=== PATIENT | female | born 1945 | race Caucasian/White ===

== ENCOUNTER 2019-08-03 00:06 | Emergency (ER) | payer OTHER ==
[2019-08-03] MEDS ORDERED: DIAZEPAM 5 MG TABLET ONE (00:56)
[2019-08-03] MEDS ORDERED: HYDROCODONE/APAP 5/325 MG TAB ONE (00:57)
--- NOTE | 2019-08-03 01:36 | ER ---
Nurse's Notes [facility] Name: Mechelle Sher Age: 73 yrs Sex: Female : 1945 Arrival Date: 08/03/2019 Time: 00:09 Bed 16 Private MD: Master Holloway Diagnosis: Pain in left knee;Internal derangement of knee Presentation: 08/02 00:42 Chief complaint: Patient states: i fell on a ditch a month ago and fell on my left mg2 knee. pain is worsening. Coronavirus screen: The patient has NOT traveled to a country currently being monitored by the [facility] within the last 14 days. Proceed with normal triage procedures. The patient has NOT had contact with any known and/or suspected case of coronavirus. Proceed with normal triage procedures. Ebola Screen: No symptoms or risks identified at this time. Initial Sepsis Screen: Does the patient meet any 2 criteria? No. Patient's initial sepsis screen is negative. Does the patient have a suspected source of infection? No. Patient's initial sepsis screen is negative. Risk Assessment: Do you want to hurt yourself or someone else? Patient reports no desire to harm self or others. 00:42 Method Of Arrival: Wheelchair mg2 00:42 Acuity: DARRIUS 4 mg2 Triage Assessment: 01:16 Injury Description: swelling and pain. mg2 Historical: - Allergies: 00:47 Iodine; mg2 - Home Meds: 00:47 escitalopram oxalate oral oral [Active]; mg2 - PMHx: 00:47 Anxiety; mg2 - PSHx: 00:47 back and right knee sx; mg2 - Immunization history:: Flu vaccine is up to date. - Social history:: Smoking status: Patient denies any tobacco usage or history of. Patient/guardian denies using alcohol, street drugs, IV drugs. Screenin:15 Abuse screen: Denies threats or abuse. Denies injuries from another. Nutritional mg2 screening: No deficits noted. Tuberculosis screening: No symptoms or risk factors identified. Fall Risk Fall in past 12 months (25 points). Assessment: 01:13 General: Appears in no apparent distress. comfortable, Behavior is calm, cooperative. mg2 Pain: Complains of pain in left leg and left knee Pain does not radiate. Pain currently is 8 out of 10 on a pain scale. Quality of pain is described as aching, Pain began gradually. Neuro: Level of Consciousness is awake, alert, obeys commands, Oriented to person, place, time, situation. Cardiovascular: Capillary refill < 3 seconds Patient's skin is warm and dry. Respiratory: Airway is patent Respiratory effort is even, unlabored, Respiratory pattern is regular, symmetrical. GI: No signs and/or symptoms were reported involving the gastrointestinal system. : No signs and/or symptoms were reported regarding the genitourinary system. EENT: No signs and/or symptoms were reported regarding the EENT system. Derm: Skin is intact, is healthy with good turgor, Skin is pink, warm \T\ dry. normal. Musculoskeletal: Circulation, motion, and sensation intact. Capillary refill < 3 seconds, Swelling present in left knee. 02:00 Reassessment: Patient appears in no apparent distress at this time. Patient is alert, mg2 oriented x 3, equal unlabored respirations, skin warm/dry/pink. Patient states feeling better. Vital Signs: 00:42 BP 142 / 69; Pulse 66; Resp 18; Temp 97.6; Pulse Ox 100% on R/A; Weight 68.04 kg; mg2 Height 5 ft. 4 in. (162.56 cm); 02:01 BP 115 / 67; Pulse 65; Resp 18; Temp 98; Pulse Ox 100% on R/A; mg2 00:42 Body Mass Index 25.75 (68.04 kg, 162.56 cm) mg2 ED Course: 00:09 Patient arrived in ED. es 00:09 Master Holloway MD is Private Physician. es 00:14 Roxane Gomez FNP-C [facility]. snw 00:14 Daniel Rodriguez MD is Attending Physician. snw 00:19 Zafar Patel, SAVANAH is Primary Nurse. mg2 00:44 Triage completed. mg2 00:44 Arm band placed on. mg2 01:06 Knee Left 3 View XRAY In Process Unspecified. EDMS 01:15 Patient has correct armband on for positive identification. mg2 01:15 No provider procedures requiring assistance completed. Patient did not have IV access mg2 during this emergency room visit. 01:29 Master Holloway MD is Referral Physician. snw 02:00 Knee immobilizer applied on left knee. mg2 Administered Medications: 01:00 Drug: Valium 5 mg Route: PO; mg2 02:00 Follow up: Response: No adverse reaction mg2 01:00 Drug: [place] 5 mg-325 mg 1 tabs Route: PO; mg2 01:59 Follow up: Response: No adverse reaction; Marked relief of symptoms; RASS: Alert and mg2 Calm (0) Outcome: 01:35 Discharge ordered by MD. villa 02:01 Discharged to home via wheelchair, with family. mg2 02:01 Condition: stable 02:01 Discharge instructions given to patient, family, Instructed on discharge instructions, follow up and referral plans. medication usage, Demonstrated understanding of instructions, follow-up care, medications, Prescriptions given X 1. 02:02 Patient left the ED. mg2 Signatures: Dispatcher [employer] EDRoxane Galaviz, CAR RETARDER OPERATOR-C CAR RETARDER OPERATOR-Csnw Merari Phelps Michele, RN RN mg2
--- NOTE | 2019-08-03 01:36 | EDPHYS ---
Physician Documentation [facility] Name: Mechelle Sher Age: 73 yrs Sex: Female : 1945 Arrival Date: 08/03/2019 Time: 00:09 Bed 16 Private MD: Master Holloway ED Physician Daniel Rodriguez HPI: 08/02 00:50 This 73 yrs old Female presents to ER via Wheelchair with complaints of Knee snw Injury. 00:50 The patient presents with decreased range of motion, pain, spasm, swelling. The snw complaints affect the left knee. Context: The problem was sustained at home, outdoors, resulted from the patient falling, into a ditch while mowing, the patient can fully bear weight, the patient is able to ambulate. Onset: The symptoms/episode began/occurred suddenly, months ago. Associated signs and symptoms: Pertinent positives: swelling, stiffness, pain . Severity of symptoms: At their worst the symptoms were moderate. The patient has not experienced similar symptoms in the past. appt on Fri with PCP, knee surgeon on 09/06/19. Historical: - Allergies: 00:47 Iodine; mg2 - Home Meds: 00:47 escitalopram oxalate oral oral [Active]; mg2 - PMHx: 00:47 Anxiety; mg2 - PSHx: 00:47 back and right knee sx; mg2 - Immunization history:: Flu vaccine is up to date. - Social history:: Smoking status: Patient denies any tobacco usage or history of. Patient/guardian denies using alcohol, street drugs, IV drugs. ROS: 00:49 Constitutional: Negative for fever, chills, and weight loss, Eyes: Negative for injury, snw pain, redness, and discharge, ENT: Negative for injury, pain, and discharge, Neck: Negative for injury, pain, and swelling, Cardiovascular: Negative for chest pain, palpitations, and edema, Respiratory: Negative for shortness of breath, cough, wheezing, and pleuritic chest pain, Abdomen/GI: Negative for abdominal pain, nausea, vomiting, diarrhea, and constipation, Back: Negative for injury and pain, : Negative for injury, bleeding, discharge, and swelling, Skin: Negative for injury, rash, and discoloration, Neuro: Negative for headache, weakness, numbness, tingling, and seizure, Psych: Negative for depression, anxiety, suicide ideation, homicidal ideation, and hallucinations. 00:49 MS/extremity: Positive for injury or acute deformity, decreased range of motion, pain, of the left knee. Exam: 00:44 Constitutional: This is a well developed, well nourished patient who is awake, alert, snw and in no acute distress. Head/Face: Normocephalic, atraumatic. Eyes: Pupils equal round and reactive to light, extra-ocular motions intact. Lids and lashes normal. Conjunctiva and sclera are non-icteric and not injected. Cornea within normal limits. Periorbital areas with no swelling, redness, or edema. ENT: Nares patent. No nasal discharge, no septal abnormalities noted. Tympanic membranes are normal and external auditory canals are clear. Oropharynx with no redness, swelling, or masses, exudates, or evidence of obstruction, uvula midline. Mucous membranes moist. Neck: Trachea midline, no thyromegaly or masses palpated, and no cervical lymphadenopathy. Supple, full range of motion without nuchal rigidity, or vertebral point tenderness. No Meningismus. Chest/axilla: Normal chest wall appearance and motion. Nontender with no deformity. No lesions are appreciated. Cardiovascular: Regular rate and rhythm with a normal S1 and S2. No gallops, murmurs, or rubs. Normal PMI, no JVD. No pulse deficits. Respiratory: Lungs have equal breath sounds bilaterally, clear to auscultation and percussion. No rales, rhonchi or wheezes noted. No increased work of breathing, no retractions or nasal flaring. Abdomen/GI: Soft, non-tender, with normal bowel sounds. No distension or tympany. No guarding or rebound. No evidence of tenderness throughout. Back: No spinal tenderness. No costovertebral tenderness. Full range of motion. Skin: Warm, dry with normal turgor. Normal color with no rashes, no lesions, and no evidence of cellulitis. Neuro: Awake and alert, GCS 15, oriented to person, place, time, and situation. Cranial nerves II-XII grossly intact. Motor strength 5/5 in all extremities. Sensory grossly intact. Cerebellar exam normal. Normal gait. Psych: Awake, alert, with orientation to person, place and time. Behavior, mood, and affect are within normal limits. 00:44 Musculoskeletal/extremity: Extremities: grossly normal except: noted in the left knee: Circulation is intact in all extremities. Sensation intact. Vital Signs: 00:42 BP 142 / 69; Pulse 66; Resp 18; Temp 97.6; Pulse Ox 100% on R/A; Weight 68.04 kg; mg2 Height 5 ft. 4 in. (162.56 cm); 02:01 BP 115 / 67; Pulse 65; Resp 18; Temp 98; Pulse Ox 100% on R/A; mg2 00:42 Body Mass Index 25.75 (68.04 kg, 162.56 cm) mg2 MDM: 00:29 Patient medically screened. snw 01:36 Data reviewed: vital signs, nurses notes. Data interpreted: Pulse oximetry: on room air snw is 100 %. Interpretation: normal. Counseling: I had a detailed discussion with the patient and/or guardian regarding: the historical points, exam findings, and any diagnostic results supporting the discharge/admit diagnosis, the presence of at least one elevated blood pressure reading (>120/80) during this emergency department visit, radiology results, the need for outpatient follow up, to return to the emergency department if symptoms worsen or persist or if there are any questions or concerns that arise at home. Special discussion: I have referred the patient to see his PCP for further evaluation of high blood pressure. Based on the history and exam findings, there is no indication for further emergent testing or inpatient evaluation. I discussed with the patient/guardian the need to see the orthopedic surgeon for further evaluation of the symptoms. I discussed with the patient/guardian the need to see the primary care provider for further evaluation of the symptoms. 08/02 00:43 Order name: Knee Left 3 View XRAY snw 08/02 00:43 Order name: Knee Immobilizer; Complete Time: 01:59 snw Administered Medications: 01:00 Drug: Valium 5 mg Route: PO; mg2 02:00 Follow up: Response: No adverse reaction mg2 01:00 Drug: [place] 5 mg-325 mg 1 tabs Route: PO; mg2 01:59 Follow up: Response: No adverse reaction; Marked relief of symptoms; RASS: Alert and mg2 Calm (0) Disposition: 07:04 Co-signature as Attending Physician, Daniel Rodriguez MD I agree with the assessment and tw4 plan of care. Disposition: 08/03/19 01:35 Discharged to Home. Impression: Pain in left knee, Internal derangement of knee. - Condition is Stable. - Discharge Instructions: Knee Immobilizer, Knee Sprain, Musculoskeletal Pain, RICE for Routine Care of Injuries, Knee Pain, Heat Therapy. - Prescriptions for orphenadrine citrate 100 mg Oral Tablet Sustained Release - take 1 tablet by ORAL route 2 times per day As needed; 20 tablet. - Medication Reconciliation Form, Thank You Letter, Antibiotic Education, Prescription Opioid Use form. - Follow up: Matser Holloway MD; When: 2 - 3 days; Reason: Recheck today's complaints, Continuance of care, Re-evaluation by your physician. Follow up: Emergency Department; When: As needed; Reason: Worsening of condition. Signatures: Dispatcher [employer] EDMS Roxane Gomez, RESIDENT CAREGIVER-C RESIDENT CAREGIVER-Csnw Daniel Rodriguez MD MD tw4 Zafar Patel RN RN mg2 Corrections: (The following items were deleted from the chart) 02:02 01:35 08/03/2019 01:35 Discharged to Home. Impression: Pain in left knee; Internal mg2 derangement of knee. Condition is Stable. Forms are Medication Reconciliation Form, Thank You Letter, Antibiotic Education, Prescription Opioid Use. Follow up: Master Holloway; When: 2 - 3 days; Reason: Recheck today's complaints, Continuance of care, Re-evaluation by your physician. Follow up: Emergency Department; When: As needed; Reason: Worsening of condition. snw
[2019-08-03 02:33] VITALS: O2SAT 100
[2019-08-03 02:35] VITALS: BP 115/67; TEMP 98
--- NOTE | 2019-08-03 07:48 | RAD REPORT ---
EXAM DESCRIPTION: RAD - Knee Left 3 View - 08/03/2019 1:07 am CLINICAL HISTORY: Left knee pain FINDINGS: No fracture or dislocation is seen. Bones are osteoporotic. Chondrocalcinosis appears be present Moderate osteoarthritis involves the medial compartment consisting of joint space narrowing and osteo phytes. Soft tissue swelling is present. The patient has clinical symptoms to suggest an occult fracture, ligamentous or meniscal injury then MRI would be recommended
== END 2019-08-03 02:02 | disposition home or self-care (01) ==
LOC: ER 00:06
DX: M23.92 Unspecified internal derangement of left knee (principal); M25.562 Pain in left knee; X58.XXXA Exposure to other specified factors, initial encounter; Y93.9 Activity, unspecified; Y92.9 Unspecified place or not applicable; Z91.09 Other allergy status, other than to drugs and biological substances
CPT/HCPCS: 99284

== ENCOUNTER 2020-05-28 12:07 | Observation (INO) | payer OTHER ==
[2020-05-28] MEDS ORDERED: NA CHLORIDE 0.9% 1,000 ML ONE (12:56)
[2020-05-28] MEDS ORDERED: ASPIRIN 81 MG CHEWABLE TABLET ONE (12:56)
[2020-05-28] MEDS ORDERED: FAMOTIDINE 20 MG/2 ML VIAL IV ONE (12:56)
[2020-05-28] MEDS ORDERED: METOPROLOL TAR 50 MG TAB ONE ×2 (12:56→13:20)
[2020-05-28] MEDS ORDERED: ENOXAPARIN 80 MG/0.8 ML SQ ONE (12:56)
[2020-05-28] MEDS ORDERED: MORPHINE 2 MG/ML SYR ONE (12:59)
[2020-05-28] MEDS ORDERED: ONDANSETRON 4 MG/2 ML VIAL ONE (12:59)
[2020-05-28 13:00] LABS: Absolute Lymphocytes (CBC) 2.2 K/uL (0.7-4.9); Basophils % 1.1 % (0-1.3); Hematocrit 41.2 % (36.0-45.0); Lymphocytes % 25.5 % (15.3-44.8); Protime INR 0.93; RBC Red Blood Cell Count 4.23 M/uL (3.86-4.86)
--- NOTE | 2020-05-28 13:14 | RAD REPORT ---
EXAM DESCRIPTION: RAD - Chest Single View - 05/28/2020 12:47 pm CLINICAL HISTORY: CHEST PAIN Chest pain. COMPARISON: CHEST SINGLE VIEW dated 12/10/2010 FINDINGS: Portable technique limits examination quality. The lungs are grossly clear. The heart is normal in size. No displaced fractures. IMPRESSION: No acute intrathoracic process suspected.
[2020-05-28 13:26] LABS: ALT/SGPT 73 U/L (12-78); AST/SGOT 101 U/L (15-37); Albumin 3.8 g/dL (3.4-5.0); Alkaline Phosphatase 112 U/L (45-117); BUN Blood Urea Nitrogen 10 mg/dL (7-18); Bicarbonate 26 mmol/L (21-32); Bilirubin Direct 0.2 mg/dL (0-0.2); Bilirubin Total 0.8 mg/dL (0.2-1.0); Glucose Level 138 mg/dL (74-106); Lipase 219 U/L (73-393); NT PRO-BNP 192 pg/mL (<450); Potassium 4.2 mmol/L (3.5-5.1); Protein, Total 7.6 g/dL (6.4-8.2); Sodium Level 136 mmol/L (136-145); Troponin (Emerg Dept Use Only) < 0.02 ng/mL (0.0-0.045)
--- NOTE | 2020-05-28 13:37 | ER ---
Nurse's Notes [facility] Name: Mechelle Sher Age: 74 yrs Sex: Female : 1945 Arrival Date: 05/28/2020 Time: 12:08 Bed 3 Private MD: Diagnosis: Chest pain, unspecified;Essential (primary) hypertension Presentation: 05/28 12:15 Chief complaint: Patient states: Chest pain and sweating that began this morning at ss 0730. Also c/o chills. Coronavirus screen: chills, Client presents with at least one sign or symptom that may indicate coronavirus-19. Standard/surgical mask placed on the client. Ebola Screen: Patient denies exposure to infectious person. Patient denies travel to an Ebola-affected area in the 21 days before illness onset. Initial Sepsis Screen: Does the patient meet any 2 criteria? No. Patient's initial sepsis screen is negative. Does the patient have a suspected source of infection? No. Patient's initial sepsis screen is negative. Risk Assessment: Do you want to hurt yourself or someone else? Patient reports no desire to harm self or others. Onset of symptoms was May 28, 2020. 12:15 Method Of Arrival: Wheelchair ss 12:15 Acuity: DARRIUS 3 ss Historical: - Allergies: 12:16 Iodine; ss 12:17 Sulfa (Sulfonamide Antibiotics); ss - PMHx: 12:16 Anxiety; ss 12:17 Hypertension; ss - PSHx: 12:16 back and right knee sx; ss - Immunization history:: Adult Immunizations up to date. - Social history:: Smoking status: Patient denies any tobacco usage or history of. Screenin:30 Abuse screen: Denies threats or abuse. Denies injuries from another. Nutritional sv screening: No deficits noted. Tuberculosis screening: No symptoms or risk factors identified. Fall Risk None identified. Assessment: 12:30 General: Appears in no apparent distress. comfortable, well groomed, well developed, sv Behavior is calm, cooperative, appropriate for age. General: Reports chills for 0-12 hours. Pain: Complains of pain in chest Pain does not radiate. Pain currently is 6 out of 10 on a pain scale. Pain began this morning Is continuous. Neuro: Level of Consciousness is awake, alert, obeys commands, Oriented to person, place, time, situation, Moves all extremities. Full function Gait is steady. Cardiovascular: Patient's skin is warm and dry. Pulses are palpable in right brachial artery and left brachial artery. Respiratory: Respiratory effort is even, unlabored, Respiratory pattern is regular, symmetrical. Derm: Skin is pink, warm \T\ dry. 13:20 Reassessment: Patient appears in no apparent distress at this time. Patient and/or sv family updated on plan of care and expected duration. Pain level reassessed. Patient is alert, oriented x 3, equal unlabored respirations, skin warm/dry/pink. 15:54 Reassessment: Patient appears in no apparent distress at this time. Patient and/or ph family updated on plan of care and expected duration. Pain level reassessed. Patient is alert, oriented x 3, equal unlabored respirations, skin warm/dry/pink. 16:09 Reassessment: Dr Bryan at the bedside. Vital Signs: 12:16 BP 135 / 94; Pulse 110; Resp 18; Temp 98.2(O); Pulse Ox 98% on R/A; Weight 68.04 kg; Height 5 ft. 3 in. (160.02 cm); Pain 6/10; 13:00 BP 176 / 87; Pulse 91; Resp 18; Pulse Ox 95% on R/A; ph 14:00 BP 175 / 85; Pulse 64; Resp 18; Pulse Ox 93% on R/A; ph 15:00 BP 165 / 76; Pulse 61; Resp 18; Pulse Ox 95% on R/A; ph 15:57 BP 172 / 92; Pulse 65; Resp 16; Pulse Ox 95% on R/A; ph 17:00 BP 145 / 67; Pulse 65; Resp 16; Pulse Ox 95% ; sv 18:00 BP 139 / 64; Pulse 60; Resp 17; Pulse Ox 94% ; sv 19:00 BP 131 / 70; Pulse 63; Resp 16; Pulse Ox 99% ; rr5 19:48 BP 136 / 65; Pulse 69; Resp 19; Temp 98.2; Pulse Ox 99% on R/A; rr5 12:16 Body Mass Index 26.57 (68.04 kg, 160.02 cm) ED Course: 12:08 Patient arrived in ED. rg4 12:16 Triage completed. 12:16 Arm band placed on right wrist. ss 12:18 Bebeto Carmona MD is Attending Physician. blanca 12:20 Leah May RN is Primary Nurse. sv 12:30 Patient has correct armband on for positive identification. Placed in gown. Bed in low sv position. Call light in reach. Side rails up X2. Adult w/ patient. monitoring and evaluation advisor on. Pulse ox on. NIBP on. Door closed. Warm blanket given. Head of bed elevated. 12:30 Inserted saline lock: 20 gauge in left antecubital area, using aseptic technique. Blood sv collected. Flushed left antecubital with 5 ml normal saline. 12:47 XRAY Chest (1 view) In Process Unspecified. EDMS 13:33 Terry Bryan MD is Hospitalizing Provider. [facility] 16:00 No provider procedures requiring assistance completed. Patient admitted, IV remains in sv place. intact. Patient maintains SpO2 saturation greater than 95% on room air. 19:46 Primary Nurse role handed off by Leah May RN mw2 19:48 Daryl Wylie RN is Primary Nurse. rr5 Administered Medications: 13:18 Drug: NS 0.9% 1000 ml Route: IV; Rate: 125 ml/hr; Site: left antecubital; ll1 13:18 Drug: Pepcid 20 mg Route: IVP; Site: left antecubital; ll1 15:32 Follow up: Response: No adverse reaction sv 13:18 Drug: Lopressor (metoprolol TARTRATE) 50 mg Route: PO; ll1 15:33 Follow up: Response: No adverse reaction sv 13:18 Drug: Zofran (Ondansetron) 4 mg Route: IVP; Site: left antecubital; ll1 15:32 Follow up: Response: No adverse reaction sv 13:19 Drug: Aspirin 162 mg Route: PO; ll1 15:33 Follow up: Response: No adverse reaction sv 13:19 Drug: Lovenox 1 mg/kg Route: Sub-Q; Site: left lower abdomen; ll1 15:32 Follow up: Response: No adverse reaction sv 13:19 Drug: morphine 2 mg Route: IVP; Site: left antecubital; ll1 15:32 Follow up: Response: No adverse reaction; RASS: Alert and Calm (0) sv 16:24 Drug: hydrALAZINE 10 mg Route: IV; Rate: bolus; Site: left antecubital; sv 17:47 Drug: Tylenol 650 mg Route: PO; sv 19:00 Follow up: Response: No adverse reaction rr5 Outcome: 13:36 Decision to Hospitalize by Provider. blanca 16:00 Admitted to ER Hold. Please see [facility] for further documentation. sv 16:00 Condition: stable 16:00 Instructed on the need for admit. 20:45 Admitted to Med/surg accompanied by tech, via wheelchair, room 224, with chart, Report rr5 called to SAVANAH Salmeron 20:45 Condition: stable 20:45 Instructed on the need for admit, Demonstrated understanding of instructions. 20:48 Patient left the ED. rr5 Signatures: Dispatcher [employer] Leah Love, RN Bebeto Hood MD MD cha Smirch, Shelby, RN RN ss Nadia Perry RN RN ph Garcia, Rubi 4 Willow Mccarty 2 Daryl Wylie RN RN rr5 Alexander Pandey RN RN ll1
--- NOTE | 2020-05-28 13:37 | EDPHYS ---
Physician Documentation [facility] Name: eMchelle Sher Age: 74 yrs Sex: Female : 1945 Arrival Date: 05/28/2020 Time: 12:08 Bed 3 Private MD: ED Physician Bebeto Carmona HPI: 05/28 12:31 This 74 yrs old Female presents to ER via Wheelchair with complaints of Chest blanca Pain, High Blood Pressure. 12:31 The patient or guardian reports chest pain that is located primarily in the substernal blanca area, anterior chest wall. Onset: this morning. The pain does not radiate. Associated signs and symptoms: Pertinent positives: lightheadedness, shortness of breath. The chest pain is described as a heaviness, causing indigestion, a pressure. Modifying factors: The symptoms are alleviated by nothing. the symptoms are aggravated by nothing. Severity of pain: At its worst the pain was mild moderate in the emergency department the pain has resolved. The patient has experienced a previous episode, last week. Historical: - Allergies: 12:16 Iodine; ss 12:17 Sulfa (Sulfonamide Antibiotics); ss - PMHx: 12:16 Anxiety; ss 12:17 Hypertension; ss - PSHx: 12:16 back and right knee sx; ss - Immunization history:: Adult Immunizations up to date. - Social history:: Smoking status: Patient denies any tobacco usage or history of. ROS: 12:31 Constitutional: Negative for fever, chills, and weight loss, Eyes: Negative for injury, blanca pain, redness, and discharge, ENT: Negative for injury, pain, and discharge, Neck: Negative for injury, pain, and swelling, Respiratory: Negative for shortness of breath, cough, wheezing, and pleuritic chest pain, Abdomen/GI: Negative for abdominal pain, nausea, vomiting, diarrhea, and constipation, Back: Negative for injury and pain, : Negative for injury, bleeding, discharge, and swelling, MS/Extremity: Negative for injury and deformity, Skin: Negative for injury, rash, and discoloration, Neuro: Negative for headache, weakness, numbness, tingling, and seizure, Psych: Negative for depression, anxiety, suicide ideation, homicidal ideation, and hallucinations, Allergy/Immunology: Negative for hives, rash, and allergies, Endocrine: Negative for neck swelling, polydipsia, polyuria, polyphagia, and marked weight changes, Hematologic/Lymphatic: Negative for swollen nodes, abnormal bleeding, and unusual bruising. 12:31 Cardiovascular: Positive for chest pain, palpitations. Exam: 12:31 Constitutional: This is a well developed, well nourished patient who is awake, alert, blanca and in no acute distress. Head/Face: Normocephalic, atraumatic. Eyes: Pupils equal round and reactive to light, extra-ocular motions intact. Lids and lashes normal. Conjunctiva and sclera are non-icteric and not injected. Cornea within normal limits. Periorbital areas with no swelling, redness, or edema. ENT: Nares patent. No nasal discharge, no septal abnormalities noted. Tympanic membranes are normal and external auditory canals are clear. Oropharynx with no redness, swelling, or masses, exudates, or evidence of obstruction, uvula midline. Mucous membranes moist. Neck: Trachea midline, no thyromegaly or masses palpated, and no cervical lymphadenopathy. Supple, full range of motion without nuchal rigidity, or vertebral point tenderness. No Meningismus. Chest/axilla: Normal chest wall appearance and motion. Nontender with no deformity. No lesions are appreciated. Cardiovascular: Regular rate and rhythm with a normal S1 and S2. No gallops, murmurs, or rubs. Normal PMI, no JVD. No pulse deficits. Respiratory: Lungs have equal breath sounds bilaterally, clear to auscultation and percussion. No rales, rhonchi or wheezes noted. No increased work of breathing, no retractions or nasal flaring. Abdomen/GI: Soft, non-tender, with normal bowel sounds. No distension or tympany. No guarding or rebound. No evidence of tenderness throughout. Back: No spinal tenderness. No costovertebral tenderness. Full range of motion. Female : Normal external genitalia. Skin: Warm, dry with normal turgor. Normal color with no rashes, no lesions, and no evidence of cellulitis. MS/ Extremity: Pulses equal, no cyanosis. Neurovascular intact. Full, normal range of motion. Neuro: Awake and alert, GCS 15, oriented to person, place, time, and situation. Cranial nerves II-XII grossly intact. Motor strength 5/5 in all extremities. Sensory grossly intact. Cerebellar exam normal. Normal gait. Psych: Awake, alert, with orientation to person, place and time. Behavior, mood, and affect are within normal limits. 12:36 ECG was reviewed by the Attending Physician. [facility] Vital Signs: 12:16 BP 135 / 94; Pulse 110; Resp 18; Temp 98.2(O); Pulse Ox 98% on R/A; Weight 68.04 kg; ss Height 5 ft. 3 in. (160.02 cm); Pain 6/10; 13:00 BP 176 / 87; Pulse 91; Resp 18; Pulse Ox 95% on R/A; ph 14:00 BP 175 / 85; Pulse 64; Resp 18; Pulse Ox 93% on R/A; ph 15:00 BP 165 / 76; Pulse 61; Resp 18; Pulse Ox 95% on R/A; ph 15:57 BP 172 / 92; Pulse 65; Resp 16; Pulse Ox 95% on R/A; ph 17:00 BP 145 / 67; Pulse 65; Resp 16; Pulse Ox 95% ; sv 18:00 BP 139 / 64; Pulse 60; Resp 17; Pulse Ox 94% ; sv 19:00 BP 131 / 70; Pulse 63; Resp 16; Pulse Ox 99% ; rr5 19:48 BP 136 / 65; Pulse 69; Resp 19; Temp 98.2; Pulse Ox 99% on R/A; rr5 12:16 Body Mass Index 26.57 (68.04 kg, 160.02 cm) ss MDM: 12:18 Patient medically screened. [facility] 12:33 Differential diagnosis: abnormal EKG, acute myocardial infarction, acute pericarditis, blanca chest wall pain, cholecystitis, Cholelithiasis pancreatitis, pneumonia, pulmonary embolus, stable angina, thoracic aortic disection, unstable angina. HEART Score: History: Slightly Suspicious (0), ECG: Normal (0), Age: > or = 65 years (2), Risk Factors: > or = 3 Risk factors for atherosclerotic disease (2), [Hypercholesterolemia] [Hypertension] [+ Family HX] Troponin: < or = 1 x Normal Limit (0). The patient was given aspirin in the Emergency Department. The patient's deep vein thrombosis risk score was calculated as follows: Total Score: 0. This patient was found to be at low risk for a deep vein thrombosis by using the Well's assessment criteria. The patient's pulmonary embolism risk score was calculated as follows: Total Score: 0-2 points. This patient was found to be at low risk for a pulmonary embolism by using the Well's assessment criteria. BRYNN Risk Score: 1 - patient's age is greater or equal to 65 years, TOTAL SCORE = 1. Data reviewed: vital signs, nurses notes, lab test result(s), EKG, radiologic studies, plain films. Data interpreted: residential monitor: rate is 110 beats/min, rhythm is regular, Pulse oximetry: on room air is 98 %. Test interpretation: by ED physician or midlevel provider: ECG, plain radiologic studies. Counseling: I had a detailed discussion with the patient and/or guardian regarding: the historical points, exam findings, and any diagnostic results supporting the discharge/admit diagnosis, lab results, radiology results. 05/28 12:19 Order name: Basic Metabolic Panel; Complete Time: 13:32 [facility] 05/28 12:19 Order name: CBC with Diff; Complete Time: 13:32 [facility] 05/28 12:19 Order name: LFT's; Complete Time: 13:32 [facility] 05/28 12:19 Order name: Magnesium; Complete Time: 13:32 [facility] 05/28 12:19 Order name: NT PRO-BNP; Complete Time: 13:32 blanca 05/28 12:19 Order name: PT-INR; Complete Time: 13:32 [facility] 05/28 12:19 Order name: Troponin (emerg Dept Use Only); Complete Time: 13:32 [facility] 05/28 12:19 Order name: Lipase; Complete Time: 13:32 [facility] 05/28 12:36 Order name: COVID-19 [facility] 05/28 14:51 Order name: Basic Metabolic Panel EDMS 05/28 14:51 Order name: Basic Metabolic Panel EDMS 05/28 14:51 Order name: CBC with Automated Diff EDMS 05/28 14:51 Order name: CBC with Automated Diff EDMS 05/28 14:51 Order name: Troponin I EDMS 05/28 12:19 Order name: XRAY Chest (1 view); Complete Time: 13:32 blanca 05/28 14:51 Order name: Echo with Doppler EDDC 05/28 14:51 Order name: Troponin I EDMS 05/28 14:51 Order name: Troponin I EDMS 05/28 17:08 Order name: SARS-COV-2 RT PCR [facility] 05/28 17:24 Order name: Urine Dipstick--Ancillary (enter results) 05/28 17:56 Order name: Urine Dipstick-Ancillary [facility] 05/28 12:19 Order name: EKG; Complete Time: 12:21 [facility] 05/28 12:19 Order name: Cardiac monitoring; Complete Time: 15:32 [facility] 05/28 12:19 Order name: EKG - Nurse/Tech; Complete Time: 15:32 [facility] 05/28 12:19 Order name: IV Saline Lock; Complete Time: 13:19 [facility] 05/28 12:19 Order name: Labs collected and sent; Complete Time: 13:19 [facility] 05/28 12:19 Order name: O2 Per Protocol; Complete Time: 13:20 [facility] 05/28 12:19 Order name: O2 Sat Monitoring; Complete Time: 15:32 [facility] 05/28 12:19 Order name: Urine Dipstick-Ancillary (obtain specimen); Complete Time: 17:18 [facility] 05/28 14:51 Order name: CONS Physician Consult [facility] 05/28 14:51 Order name: Heart Healthy [facility] 05/28 14:51 Order name: EKG Electrocardiogram [facility] 05/28 14:51 Order name: EKG Electrocardiogram [facility] EC:36 Rate is 99 beats/min. Rhythm is regular. QRS Wolsey is Normal. [place] interval is normal. QRS blanca interval is normal. QT interval is normal. No Q waves. T waves are Normal. No ST changes noted. Clinical impression: NSR w/ Non-specific ST/T Changes and No evidence of ischemia. Interpreted by me. Reviewed by me. Administered Medications: 13:18 Drug: NS 0.9% 1000 ml Route: IV; Rate: 125 ml/hr; Site: left antecubital; ll1 13:18 Drug: Pepcid 20 mg Route: IVP; Site: left antecubital; ll1 15:32 Follow up: Response: No adverse reaction sv 13:18 Drug: Lopressor (metoprolol TARTRATE) 50 mg Route: PO; ll1 15:33 Follow up: Response: No adverse reaction sv 13:18 Drug: Zofran (Ondansetron) 4 mg Route: IVP; Site: left antecubital; ll1 15:32 Follow up: Response: No adverse reaction sv 13:19 Drug: Aspirin 162 mg Route: PO; ll1 15:33 Follow up: Response: No adverse reaction sv 13:19 Drug: Lovenox 1 mg/kg Route: Sub-Q; Site: left lower abdomen; ll1 15:32 Follow up: Response: No adverse reaction sv 13:19 Drug: morphine 2 mg Route: IVP; Site: left antecubital; ll1 15:32 Follow up: Response: No adverse reaction; RASS: Alert and Calm (0) sv 16:24 Drug: hydrALAZINE 10 mg Route: IV; Rate: bolus; Site: left antecubital; sv 17:47 Drug: Tylenol 650 mg Route: PO; sv 19:00 Follow up: Response: No adverse reaction rr5 Disposition: 05/28/20 13:36 Hospitalization ordered by Terry Bryan for Observation. Preliminary diagnosis are Chest pain, unspecified, Essential (primary) hypertension. - Bed requested for Telemetry/MedSurg (observation). - Status is Observation. rr5 - Condition is Fair. - Problem is new. - Symptoms have improved. Signatures: Dispatcher [employer] EDLeah Dawkins RN RN sv Woody, Diana, RN RN dw Anderson, Corey, MD MD cha Smirch, Shelby, RN RN ss Daryl Wylie RN RN rr5 Alexander Pandey RN RN ll1 Corrections: (The following items were deleted from the chart) 20:13 13:36 Hospitalization Ordered by Terry Bryan MD for Observation. Preliminary dw diagnosis is Chest pain, unspecified; Essential (primary) hypertension. Bed requested for Telemetry/MedSurg (observation). Status is Observation. Condition is Fair. Problem is new. Symptoms have improved. blanca 20:48 20:13 05/28/2020 13:36 Hospitalization Ordered by Terry Bryan MD for Observation. rr5 Preliminary diagnosis is Chest pain, unspecified; Essential (primary) hypertension. Bed requested for Telemetry/MedSurg (observation). Status is Observation. Condition is Fair. Problem is new. Symptoms have improved. dw
[2020-05-28] MEDS ORDERED: MORPHINE 4 MG/ML SYR IV PRN (14:48)
[2020-05-28] MEDS ORDERED: ALPRAZOLAM 0.25 MG TABLET PO PRN (14:48)
[2020-05-28] MEDS ORDERED: ENOXAPARIN 40 MG/0.4 ML SQ SCH (15:00)
[2020-05-28] MEDS ORDERED: HYDRALAZINE HCL 20 MG/ML VIAL ONE (16:27)
[2020-05-28 17:56] LABS: Urine Blood NEGATIVE (NEG); Urine Glucose NEGATIVE (NEG); Urine Protein NEGATIVE (NEG)
[2020-05-28] MEDS ORDERED: ACETAMINOPHEN 325 MG TABLET ONE (17:57)
[2020-05-28 22:30] VITALS: BMI 26.6
[2020-05-28] MEDS: METOPROLOL TAR 25 MG TAB PO SCH (23:23)
[2020-05-28] MEDS: ACETAMINOPHEN 500 MG TAB PO PRN (23:46)
[2020-05-29 04:17] VITALS: O2SAT 95
--- NOTE | 2020-05-29 05:48 | P.HP ---
Certification for Inpatient Patient admitted to: Observation With expected LOS: <2 Midnights Patient will require the following post-hospital care: None Practitioner: I am a practitioner with admitting privileges, knowledge of patient current condition, hospital course, and medical plan of care. Services: Services provided to patient in accordance with Admission requirements found in Title 42 Section 412.3 of the Code of Federal Regulations Patient History Date of Service: 05/28/20 Reason for admission: Chest pain rule out acute coronary syndrome History of Present Illness: Patient is a 74-year-old female who presented to the hospital with chest discomfort. Pain was mainly in the sternal region and radiated up the left side of her neck. She had a little short of breath and a little diaphoretic. She came into the emergency room for further evaluation. She was brought here by her . She has a repair miller in [place], Dr. Thompson. She has had prior cardiac workup which has been unremarkable. She has a past medical history of hypertension. Initial EKG and troponins were unremarkable. We will admit her to the hospital and rule out for acute coronary syndrome. If patient troponins are negative then anticipate discharge home in the morning. Patient wants to follow up with her own repair miller if her workup is unremarkable. She is already feeling better and she states that her chest pain is resolved. She does have a history of reflux and she thinks that it may have been just reflux. She will be admitted and ruled out for acute coronary syndrome. Allergies iodine Allergy (Severe, Verified 05/29/20 01:03) Anaphylaxis Sulfa (Sulfonamide Antibiotics) Allergy (Verified 05/29/20 01:03) Hives/Rash - Past Medical/Surgical History -: Anxiety -: HTN -: Back -: Right knee - Family History Father Family History: Reviewed- Non-Contributory - Social History Smoking Status: Never smoker Alcohol use: No CD- Drugs: No Place of Residence: Home Review of Systems 10-point ROS is otherwise unremarkable Physical Examination - Vital Signs Temperature: 97.6 F Blood Pressure: 135/77 Pulse: 68 Respirations: 22 Pulse Ox (%): 97 - Physical Exam General: Alert, In no apparent distress, Oriented x3 HEENT: Atraumatic, PERRLA, Mucous membr. moist/pink, EOMI, Sclerae nonicteric Neck: Supple, 2+ carotid pulse no bruit, No LAD, Without JVD or thyroid abnormality Respiratory: Clear to auscultation bilaterally, Normal air movement Cardiovascular: Regular rate/rhythm, Normal S1 S2, No murmurs Gastrointestinal: Normal bowel sounds, Soft and benign, Non-distended, No tenderness Musculoskeletal: No clubbing, No swelling, No tenderness Integumentary: No rashes Neurological: Normal gait, Normal speech, Normal strength at 5/5 x4 extr, Normal tone, Sensation intact, Cranial nerves 3-12 intact, Normal affect Lymphatics: No axilla or inguinal lymphadenopathy - Studies Laboratory Data (last 24 hrs) 05/28/20 12:35: PT 11.0, INR 0.93 05/28/20 12:35: WBC 8.5, Hgb 14.2, Hct 41.2, Plt Count 255 05/28/20 12:35: Sodium 136, Potassium 4.2, BUN 10, Creatinine 0.77, Glucose 138 H, Magnesium 2.0, Total Bilirubin 0.8, AST 101 H, ALT 73, Alkaline Phosphatase 112, Lipase 219 Assessment & Plan - Problems (Diagnosis) (1) Chest pain, rule out acute myocardial infarction Current Visit: Yes Status: Acute (2) Hypertension Current Visit: Yes Status: Acute - Plan 1. Serial troponins and EKG 2. Outpatient cardiology follow-up if workup is unremarkable 3. Echocardiogram 4. Anti-platelet therapy, anti coagulation, beta-chucho, statin, and O2 as needed 5. IV morphine for pain 6. Nitro p.r.n. Discharge Plan: Home Plan to discharge in: 24 Hours - Advance Directives Does patient have a Living Will: Yes Does patient have a Durable POA for Healthcare: Yes - Code Status/Comfort Care Code Status Assessed: Yes Code Status: Full Code Critical Care: No Time Spent Managing PTS Care (In Minutes): 40
--- NOTE | 2020-05-29 05:53 | P.DS ---
Discharge Date: 05/29/20 Disposition: ROUTINE DISCHARGE Discharge Condition: GOOD Reason for Admission: Chest pain rule out acute coronary syndrome - Problems (1) Chest pain, rule out acute myocardial infarction Current Visit: Yes Status: Acute (2) Hypertension Current Visit: Yes Status: Acute Brief History of Present Illness: Patient is a 74-year-old female who presented to the hospital with chest discomfort. Pain was mainly in the sternal region and radiated up the left side of her neck. She had a little short of breath and a little diaphoretic. She came into the emergency room for further evaluation. She was brought here by her . She has a special education coordinator in [place], Dr. Thompson. She has had prior cardiac workup which has been unremarkable. She has a past medical history of hypertension. Initial EKG and troponins were unremarkable. We will admit her to the hospital and rule out for acute coronary syndrome. If patient troponins are negative then anticipate discharge home in the morning. Patient wants to follow up with her own special education coordinator if her workup is unremarkable. She is already feeling better and she states that her chest pain is resolved. She does have a history of reflux and she thinks that it may have been just reflux. She will be admitted and ruled out for acute coronary syndrome. Vital Signs/Physical Exam: Temp Pulse Resp BP Pulse Ox 97.6 F 68 22 H 135/77 97 05/29/20 05:48 05/29/20 05:48 05/29/20 05:48 05/29/20 05:48 05/29/20 05:48 Laboratory Data at Discharge: WBC 8.5 K/uL (4.3-10.9) 05/28/20 12:35 Hgb 14.2 g/dL (12.0-15.0) 05/28/20 12:35 Hct 41.2 % (36.0-45.0) 05/28/20 12:35 Plt Count 255 K/uL (152-406) 05/28/20 12:35 PT 11.0 SECONDS (9.5-12.5) 05/28/20 12:35 INR 0.93 05/28/20 12:35 Sodium 136 mmol/L (136-145) 05/28/20 12:35 Potassium 4.2 mmol/L (3.5-5.1) 05/28/20 12:35 BUN 10 mg/dL (7-18) 05/28/20 12:35 Creatinine 0.77 mg/dL (0.55-1.3) 05/28/20 12:35 Glucose 138 mg/dL (74-106) H 05/28/20 12:35 Magnesium 2.0 mg/dL (1.8-2.4) 05/28/20 12:35 Total Bilirubin 0.8 mg/dL (0.2-1.0) 05/28/20 12:35 AST 101 U/L (15-37) H 05/28/20 12:35 ALT 73 U/L (12-78) 05/28/20 12:35 Alkaline Phosphatase 112 U/L (45-117) 05/28/20 12:35 Troponin I < 0.02 ng/mL (0.0-0.045) 05/28/20 20:31 Lipase 219 U/L (73-393) 05/28/20 12:35 Home Medications: Aspirin [Ecotrin 81 MG] 81 mg PO DAILY #30 tablet. 05/29/20 Atorvastatin Calcium [Lipitor] 40 mg PO DAILY #30 tablet 05/29/20 Pantoprazole [Protonix Tab] 40 mg PO DAILY #30 tab 05/29/20 New Medications: Aspirin [Ecotrin 81 MG] 81 mg PO DAILY #30 tablet. Atorvastatin Calcium [Lipitor] 40 mg PO DAILY #30 tablet Pantoprazole [Protonix Tab] 40 mg PO DAILY #30 tab Patient Discharge Instructions: OK TO DC IV AND DC HOME. FOLLOW-UP WITH PRIMARY CARE PROVIDER IN 1-2 WEEKS. FOLLOW-UP WITH CARDIOLOGY IN 1-2 WEEKS. RETURN TO THE ER IF symptoms worsen. CALL DR. ALMENDAREZ AT [phone] IF ANY QUESTIONS REGARDING HOSPITAL STAY. PLEASE CALL THE FLOOR AT [phone] IF ANY MEDICATION OR NURSING QUESTIONS. Diet: AHA Activity: Fall precautions Followup: Master Holloway MD [Primary Care Provider] -
[2020-05-29 06:31] LABS: BUN Blood Urea Nitrogen 10 mg/dL (7-18); Bicarbonate 25 mmol/L (21-32); Glucose Level 109 mg/dL (74-106); HDL Cholesterol 66 mg/dL (40-60); LDL Cholesterol, Calculated 78 (<130); Sodium Level 136 mmol/L (136-145); Troponin I < 0.02 ng/mL (0.0-0.045)
[2020-05-29 06:34] LABS: Potassium 4.2 mmol/L (3.5-5.1)
[2020-05-29 07:53] LABS: Absolute Lymphocytes (CBC) 1.9 K/uL (0.7-4.9); Basophils % 1.2 % (0-1.3); Hematocrit 35.4 % (36.0-45.0); Lymphocytes % 36.2 % (15.3-44.8); RBC Red Blood Cell Count 3.64 M/uL (3.86-4.86)
[2020-05-29] MEDS: METOPROLOL TAR 25 MG TAB PO SCH (08:52)
[2020-05-29] MEDS: ACETAMINOPHEN 500 MG TAB PO PRN (08:55)
[2020-05-29] MEDS ORDERED: ASPIRIN EC 81 MG TAB PO SCH (09:00)
[2020-05-29 09:25] VITALS: BP 123/60; TEMP 97.7
--- NOTE | 2020-05-29 10:30 | EKG ---
Test Date: 2020-05-28 Test Time: 12:27:32 Wood Heel Finisher: [place] MEASUREMENT RESULTS: Intervals: Rate: 99 HI: 134 QRSD: 78 QT: 346 QTc: 444 [place]: P: 72 HI: 134 QRS: 49 T: 55 INTERPRETIVE STATEMENTS: Normal sinus rhythm with sinus arrhythmia Normal ECG Compared to ECG 12/10/2010 19:24:35 T-wave abnormality no longer present Electronically Signed On 05-29-20 10:27:59 DENTISTRY PROFESSOR by Brayan Mcclelland
== END 2020-05-29 09:39 | disposition home or self-care (01) ==
LOC: ER 12:07 → ERHOLD 14:48 → 2ND 20:19
PROVIDERS: ADMIT Hospitalist; ATTEND Family Medicine
DX: R07.9 Chest pain, unspecified (principal); I10 Essential (primary) hypertension; Z20.822 Contact with and (suspected) exposure to COVID-19; K21.9 Gastro-esophageal reflux disease without esophagitis; F41.9 Anxiety disorder, unspecified
CPT/HCPCS: 36415; 71045; 80048; 80061; 80076; 81003; 83690; 83735; 83880; 84484; 85025; 85610; 93005; 96372; 96374; 96375; 99285; G0378; J0360; J2270; J2405; J7030; U0003

== ENCOUNTER 2020-06-10 19:39 | Observation (INO) | payer OTHER ==
--- OUTSIDE RECORDS SUMMARY | 2020-06-10 19:42 | XMS REPORT | Clinical Summary ---
:1945 Author Organization [facility] Address [address] [place] [address] Care Team Providers Name Role Phone Unavailable Primary Care Provider Unavailable Allergies Active Allergy Reactions Severity Noted Date Comments Iodine And Iodide Containing Products Sulfur Rash Low 06/08/2020 Medications Medication Sig Dispensed Refills Start Date End Date Status pantoprazole Take 40 mg 0 Active (PROTONIX) 40 MG by mouth tablet daily. citalopram Take 20 mg 0 Active (CeleXA) 20 MG by mouth tablet daily. aspirin 81 MG Take 81 mg 0 Activ e chewable tablet by mouth daily. celecoxib Take 200 mg 0 Active (CeleBREX) 200 MG by mouth capsule every 12 (twelve) hours as needed for Pain. atorvastatin Take 1 90 tablet 2 06/08/2020 Active (LIPITOR) 40 MG tablet (40 tablet mg total) by mouth daily. metoprolol Take 1 60 tablet 2 06/08/2020 Active tartrate tablet (25 (LOPRESSOR) 25 MG mg total) by tablet mouth 2 (two) times daily. metoprolol Take 25 mg 0 Disconti nued tartrate by mouth 2 1 (Reorder) (LOPRESSOR) 25 MG (two) times tablet daily. atorvastatin Take 40 mg 0 Discon tinued (LIPITOR) 40 MG by mouth 1 (Reo rder) tablet daily. Active Problems Problem Noted Date Hypertensive urgency 06/08/2020 Other chest pain 06/08/2020 Mixed hyperlipidemia 06/08/2020 Encounters Date Type Specialty Care Team Description 06/08/2020 Office Visit Cardiology Svitlana Prasad NP Hypertensiv e urgency; Other chest kate n; Mixed hyperlipi demia 06/08/2020 Travel after 06/10/2019 Family History Medical History Relation Name Comments Hypertension Sister Relation Name Status Comments Sister Social History Tobacco Use Types Packs/Day Years Used Date Former Smoker Smokeless Tobacco: Never Used Alcohol Use Drinks/Week oz/Week Comments Yes social Sex Assigned at Date Recorded Not on file Last Filed Vital Signs Vital Sign Reading Time Taken Comments Blood Pressure 160/84 06/08/2020 2:03 PM [employer] WORKER Pulse 73 06/08/2020 1:13 PM [employer] HE[employer] OUTREACH WORKER Temperature 35.7 C (96.3 F) 06/08/2020 1:13 PM [employer] HE[employer] OUTREACH WORKER Respiratory Rate - - Oxygen Saturation 98% 06/08/2020 1:13 PM [employer] HE[employer] OUTREACH WORKER Inhaled Oxygen Concentration - - Weight 72.1 kg (159 lb) 06/08/2020 1:13 PM PUBLIC HEALTH OUTREACH WORKER Height 160 cm (5' 3") 06/08/2020 1:13 PM PUBLIC HEALTH OUTREACH WORKER Body Mass Index 28.17 06/08/2020 1:13 PM PUBLIC HEALTH OUTREACH WORKER Plan of Treatment Date Type Specialty Care Team Description 09/21/2020 Office Visit Cardiology Jarred Doll MD ([place]) [address] [phone] Health Maintenance Due Date Last Done Comments COLON CANCER SCREENING COLONOSCOPY 1945 PNEUMOCOCCAL 65+ YRS (1 of 1 - [id number]) 2009 MEDICARE ANNUAL WELLNESS (YEAR 2 or FIRST YEAR if no 07/25/2010 IPPE) INFLUENZA VACCINE (#1) 2020 DEPRESSION SCREENING (12+) 05/26/2020 Procedures Procedure Name Priority Date/Time Associated Diagnosis Comme nts ECG 12-LEAD Routine 06/09/2020 1:43 PM PUBLIC HEALTH OUTREACH WORKER Hyperten sive urgency Other chest pain Mixed hyperlipidemia after 06/10/2019 Results ECG 12 lead (06/09/2020 1:43 PM PUBLIC HEALTH OUTREACH WORKER) Narrative Performed At This result has an attachment that is no t available. after 06/10/2019 Insurance Payer Benefit Plan / Subscriber ID Effective Dates Phone Addre ss Type Group MEDICARE MEDICARE A B [id number] 2009-Present Medicare AETNA - [place]GD CARE AETNA PPO OPEN [id number] 2013-Present PPO [facility] NAP
[2020-06-10] MEDS ORDERED: NITROGLYCERIN 0.4 MG/TAB SL ONE (21:35)
[2020-06-10 22:05] LABS: Absolute Lymphocytes (CBC) 1.9 K/uL (0.7-4.9); Basophils % 1.3 % (0-1.3); Hematocrit 37.7 % (36.0-45.0); Lymphocytes % 25.6 % (15.3-44.8); MPV 8.5 fL (7.6-11.3); RBC Red Blood Cell Count 3.75 M/uL (3.86-4.86)
[2020-06-10 22:06] LABS: Protime INR 0.96
[2020-06-10 22:20] LABS: ALT/SGPT 222 U/L (12-78); AST/SGOT 205 U/L (15-37); Albumin 3.5 g/dL (3.4-5.0); Alkaline Phosphatase 145 U/L (45-117); BUN Blood Urea Nitrogen 13 mg/dL (7-18); Bicarbonate 27 mmol/L (21-32); Bilirubin Direct 0.2 mg/dL (0-0.2); Bilirubin Total 0.7 mg/dL (0.2-1.0); Glucose Level 124 mg/dL (74-106); Magnesium 2.5 mg/dL (1.8-2.4); NT PRO-BNP 958 pg/mL (<450); Sodium Level 140 mmol/L (136-145); Troponin (Emerg Dept Use Only) < 0.02 ng/mL (0.0-0.045)
[2020-06-10] MEDS ORDERED: LOSARTAN POTASSIUM 50 MG TABLET ONE (22:30)
[2020-06-10] MEDS ORDERED: ASPIRIN 81 MG CHEWABLE TABLET ONE (23:52)
[2020-06-10] MEDS ORDERED: ACETAMINOPHEN 500 MG TAB ONE (23:53)
--- NOTE | 2020-06-11 00:11 | ER ---
Nurse's Notes [facility] Name: Mechelle Sher Age: 74 yrs Sex: Female : 1945 Arrival Date: 06/10/2020 Time: 19:42 Bed 14 Private MD: Diagnosis: Chest pain, unspecified;Hypertensive heart disease Presentation: 06/10 19:54 Chief complaint: Patient states: Has been having BP issues since her last visit here ll1 05/28/20. BP at home today 211/100. Took 125 mg total of metoprolol today (prescribed 25 mg daily). Coronavirus screen: Client denies travel out of the [place] in the last 14 days. At this time, the client does not indicate any symptoms associated with coronavirus-19. Ebola Screen: Patient denies travel to an Ebola-affected area in the 21 days before illness onset. Initial Sepsis Screen: Does the patient meet any 2 criteria? No. Patient's initial sepsis screen is negative. Does the patient have a suspected source of infection? No. Patient's initial sepsis screen is negative. Risk Assessment: Do you want to hurt yourself or someone else? Patient reports no desire to harm self or others. Onset of symptoms was May 28, 2020. 19:54 Method Of Arrival: Ambulatory ll1 19:54 Acuity: DARRIUS 2 ll1 Triage Assessment: 19:56 General: Appears in no apparent distress. Behavior is calm, cooperative, appropriate ll1 for age. Pain: Complains of pain in head Pain currently is 6 out of 10 on a pain scale. Quality of pain is described as aching. Neuro: Level of Consciousness is awake, alert, obeys commands, Oriented to person, place, time, situation, Appropriate for age Command And Control Specialist are equal bilaterally Moves all extremities. Full function Gait is steady, Speech is normal, Facial symmetry appears normal, Reports headache. Cardiovascular: Reports since high BP Heart tones S1 S2 Capillary refill < 3 seconds Clubbing of nail beds is absent. Respiratory: No deficits noted. Breath sounds are clear bilaterally. Historical: - Allergies: 19:53 Iodine; ll1 19:53 Sulfa (Sulfonamide Antibiotics); ll1 - PMHx: 19:53 Anxiety; Hypertension; ll1 - PSHx: 19:53 back and right knee sx; ll1 - Immunization history:: Flu vaccine is not up to date. - Social history:: Smoking status: Patient denies any tobacco usage or history of. Screenin:17 Abuse screen: Denies threats or abuse. Nutritional screening: No deficits noted. fu Tuberculosis screening: No symptoms or risk factors identified. Fall Risk None identified. Assessment: 21:10 General: Appears in no apparent distress. well groomed, Behavior is calm, cooperative, fu appropriate for age, Denies fever, feeling ill, fatigue, chills. Pain: Complains of pain in headache Pain does not radiate. Pain currently is 6 out of 10 on a pain scale. Quality of pain is described as aching. Neuro: Level of Consciousness is awake, alert, obeys commands, Oriented to person, place, time, situation, Command And Control Specialist are equal bilaterally Moves all extremities. Gait is steady, Speech is normal, Facial symmetry appears normal, Reports headache. Cardiovascular: Reports chest tightness Denies lightheadedness, nausea, palpitations, shortness of breath, syncope, vomiting. Respiratory: Airway is patent Denies cough, shortness of breath. GI: Patient currently denies diarrhea, nausea, vomiting. 23:00 Reassessment: Patient and/or family updated on plan of care and expected duration. Pain fu level reassessed. Patient is alert, oriented x 3, equal unlabored respirations, skin warm/dry/pink. 06/11 00:22 Reassessment: assisted to restroom. fu 00:24 Reassessment: Dr. Bird in patient's room. fu 02:37 Reassessment: Awaiting COVID-19 test results. fu 03:31 Reassessment: patient complaining of headache, MD notified. fu Vital Signs: 06/10 19:54 BP 184 / 85; Pulse 60; Resp 16; Temp 97.6; Pulse Ox 100% ; Weight 70.31 kg; Height 5 ll1 ft. 4 in. (162.56 cm); Pain 6/10; 21:30 BP 161 / 120; Pulse 56; Resp 18; Temp 97.7(O); Pulse Ox 95% on R/A; Pain 6/10; fu 22:00 BP 139 / 96; Pulse 64; Resp 18; Pulse Ox 95% on R/A; Pain 6/10; fu 22:00 BP 160 / 62; Pulse 53; Resp 19; Pulse Ox 97% on R/A; fu 23:44 BP 201 / 81; Pulse 52; Resp 16; Pulse Ox 96% on R/A; fu 06/11 03:22 BP 160 / 54; Pulse 47; Resp 15; Pulse Ox 92% on R/A; Pain 0/10; fu 03:22 BP 188 / 76; Pulse 55; Resp 13 S; Pulse Ox 95% on R/A; fu 06/10 19:54 Body Mass Index 26.61 (70.31 kg, 162.56 cm) ll1 ED Course: 06/10 19:42 Patient arrived in ED. cl3 19:55 Triage completed. ll1 19:56 Arm band placed on. ll1 21:12 Bebeto Renteria PA is PHCP. cp 21:12 Victor Manuel Hong MD is Attending Physician. cp 21:26 Matthew Fam, SAVANAH is Primary Nurse. fu 21:40 Inserted saline lock: 20 gauge in right wrist, using aseptic technique. Blood collected.fu 21:41 Initial lab(s) drawn, by me, sent to lab. fu 21:48 XRAY Chest (1 view) In Process Unspecified. EDMS 22:17 Patient has correct armband on for positive identification. Bed in low position. Side fu rails up X 1. marketing underwriter on. Pulse ox on. NIBP on. Warm blanket given. 22:18 No provider procedures requiring assistance completed. fu 23:00 CT Head Brain wo Cont In Process Unspecified. EDMS 06/11 00:10 Edmar Bird MD is Hospitalizing Provider. cp 03:57 Patient admitted, IV remains in place. fu Administered Medications: 06/10 21:35 Drug: Nitroglycerin 0.4 mg Route: Sublingual; fu 21:35 Follow up: Response: Pain is decreased fu 22:28 Drug: Losartan 50 mg Route: PO; fu 23:30 Follow up: Response: No adverse reaction fu 23:43 Drug: Tylenol 1000 mg Route: PO; fu 06/11 00:43 Follow up: Response: No adverse reaction fu 06/10 23:43 Drug: Nitroglycerin 0.4 mg Route: Sublingual; fu 06/11 00:43 Follow up: Response: Pain is decreased fu 06/10 23:44 Drug: Aspirin Chewable Tablet 324 mg Route: PO; fu 06/11 00:44 Follow up: Response: No adverse reaction fu Outcome: 00:11 Decision to Hospitalize by Provider. cp 03:57 Admitted to Med/surg accompanied by tech, room 215, Report called to SAVANAH Stover fu 03:57 Condition: stable 03:57 Instructed on the need for admit. 04:23 Patient left the ED. fu Signatures: Dispatcher [employer] EDMS Bebeto Renteria PA PA cp Umadhay, Felix, RN RN Gucci Pandey cl3 Alexander Pandey RN RN 1 Corrections: (The following items were deleted from the chart) 06/10 20:13 19:54 Chief complaint: Patient states: Has been having BP issues since her last visit [facility] here 05/28/20. BP at home today 211/100. Took 125mg total of metoprolol today. [facility] 06/11 03:56 03:22 BP 188 / 76; Pulse 55bpm; Resp 13bpm; Spontaneous; Pulse Ox 55% RA; fu fu
--- NOTE | 2020-06-11 00:12 | EDPHYS ---
Physician Documentation [facility] Name: Mechelle Sher Age: 74 yrs Sex: Female : 1945 Arrival Date: 06/10/2020 Time: 19:42 Bed 14 Private MD: ED Physician Victor Manuel Hong HPI: 06/10 21:25 This 74 yrs old Female presents to ER via Ambulatory with complaints of High cp Blood Pressure. 21:25 The patient has elevated blood pressure and discovered this at home, with a home device.cp 21:25 Onset: The symptoms/episode began/occurred today. cp 21:25 Associated signs and symptoms: Pertinent positives: headache, chest pressure. Severity cp of symptoms: in the emergency department the blood pressure is improved, mildly. Historical: - Allergies: 19:53 Iodine; ll1 19:53 Sulfa (Sulfonamide Antibiotics); ll1 - PMHx: 19:53 Anxiety; Hypertension; ll1 - PSHx: 19:53 back and right knee sx; ll1 - Immunization history:: Flu vaccine is not up to date. - Social history:: Smoking status: Patient denies any tobacco usage or history of. ROS: 21:30 Eyes: Negative for injury, pain, redness, and discharge. cp 21:30 Constitutional: Negative for body aches, chills, fever, poor PO intake. 21:30 ENT: Negative for ear pain, sore throat, difficulty swallowing, difficulty handling cp secretions. 21:30 Cardiovascular: Positive for chest pain, Negative for edema, palpitations. 21:30 Respiratory: Negative for cough, shortness of breath, wheezing. 21:30 Abdomen/GI: Negative for abdominal pain, nausea, vomiting, and diarrhea. 21:30 Back: Negative for pain at rest, pain with movement, radiated pain. 21:30 : Negative for urinary symptoms. 21:30 Skin: Negative for cellulitis, rash. 21:30 Neuro: Positive for headache, Negative for altered mental status, dizziness, numbness, weakness. 21:30 All other systems are negative. Exam: 21:33 Constitutional: The patient appears in no acute distress, alert, awake, cp non-diaphoretic, non-toxic, well developed, well nourished. 21:33 Head/Face: Normocephalic, atraumatic. cp 21:33 Eyes: Periorbital structures: appear normal, Conjunctiva: normal, no exudate, no injection, Sclera: no appreciated abnormality, Lids and lashes: appear normal, bilaterally. 21:33 ENT: External ear(s): are unremarkable, Nose: is normal, Posterior pharynx: Airway: no evidence of obstruction, patent. 21:33 Neck: ROM/movement: is normal, is supple, without pain, no range of motions limitations, no nuchal rigidity. 21:33 Chest/axilla: Inspection: normal, Palpation: is normal, no crepitus, no tenderness. 21:33 Cardiovascular: Rate: bradycardic, Rhythm: regular, Edema: is not appreciated, JVD: is not appreciated. 21:33 Respiratory: the patient does not display signs of respiratory distress, Respirations: normal, no use of accessory muscles, no retractions, labored breathing, is not present, Breath sounds: are clear throughout, no decreased breath sounds, no stridor, no wheezing. 21:33 Abdomen/GI: Inspection: abdomen appears normal, Bowel sounds: normal, in all quadrants, Palpation: abdomen is soft and non-tender, in all quadrants, rebound tenderness, is not appreciated, voluntary guarding, is not appreciated, involuntary guarding, is not appreciated. 21:33 Back: pain, is absent, ROM is normal. 21:33 Neuro: Orientation: to person, place \T\ time. Mentation: is normal, Cerebellar function: is grossly normal, Motor: moves all fours, strength is normal, Sensation: is normal. 21:45 ECG was reviewed by the Attending Physician. cp Vital Signs: 19:54 BP 184 / 85; Pulse 60; Resp 16; Temp 97.6; Pulse Ox 100% ; Weight 70.31 kg; Height 5 ll1 ft. 4 in. (162.56 cm); Pain 6/10; 21:30 BP 161 / 120; Pulse 56; Resp 18; Temp 97.7(O); Pulse Ox 95% on R/A; Pain 6/10; fu 22:00 BP 139 / 96; Pulse 64; Resp 18; Pulse Ox 95% on R/A; Pain 6/10; fu 22:00 BP 160 / 62; Pulse 53; Resp 19; Pulse Ox 97% on R/A; fu 23:44 BP 201 / 81; Pulse 52; Resp 16; Pulse Ox 96% on R/A; fu 06/11 03:22 BP 160 / 54; Pulse 47; Resp 15; Pulse Ox 92% on R/A; Pain 0/10; fu 03:22 BP 188 / 76; Pulse 55; Resp 13 S; Pulse Ox 95% on R/A; fu 06/10 19:54 Body Mass Index 26.61 (70.31 kg, 162.56 cm) ll1 MDM: 06/10 21:19 Patient medically screened. cp 22:00 Differential diagnosis: Malignant HTN, CVA, intracerebral hemorrhage, angina, acute MO. cp 06/11 00:05 Data reviewed: vital signs, nurses notes, lab test result(s), EKG, radiologic studies, cp CT scan, plain films. 00:05 Test interpretation: by ED physician or midlevel provider: ECG, plain radiologic cp studies. Response to treatment: the patient's symptoms have mildly improved after treatment, Patient continues to reports mild chest tightness. Will admit for continued monitoring. 00:05 Physician consultation: Edmar Bird MD was called at 00:05, was contacted at 00:05, regarding admission, to the telemetry unit. patient's condition. 06/10 21:20 Order name: Basic Metabolic Panel; Complete Time: 23:20 cp 06/11 00:34 Interpretation: Normal except: GLUC 124; GFR 67. cp 06/10 21:20 Order name: CBC with Diff; Complete Time: 23:20 cp 06/10 21:20 Order name: LFT's; Complete Time: 23:20 cp 06/10 23:21 Interpretation: Normal except: AST 205; ALT 222; ALK 145. cp 06/10 21:20 Order name: Magnesium; Complete Time: 23:20 cp 06/10 21:20 Order name: NT PRO-BNP; Complete Time: 23:20 cp 06/10 21:20 Order name: PT-INR; Complete Time: 23:20 cp 06/10 21:20 Order name: Troponin (emerg Dept Use Only); Complete Time: 23:20 cp 06/11 00:47 Order name: COVID-19 lp1 06/11 00:54 Order name: Liver (Hepatic) Function EDMS 06/11 00:54 Order name: CBC with Automated Diff EDMS 06/11 00:54 Order name: CBC with Automated Diff EDRI 06/11 00:54 Order name: CKMB Creatine Kinase MB EDRI 06/11 00:54 Order name: CKMB Creatine Kinase MB EDRI 06/11 00:54 Order name: CKMB Creatine Kinase MB EDRI 06/10 21:20 Order name: CT Head Brain wo Cont 06/10 21:20 Order name: XRAY Chest (1 view) 06/11 00:54 Order name: CKMB Creatine Kinase MB EDRI 06/11 00:54 Order name: Comprehensive Metabolic Panel EDRI 06/11 00:54 Order name: Comprehensive Metabolic Panel [facility] 06/11 00:54 Order name: Lipid Profile [facility] 06/11 00:54 Order name: Lipid Profile [facility] 06/11 00:54 Order name: Troponin I [facility] 06/11 00:54 Order name: Troponin I [facility] 06/11 00:54 Order name: Troponin I [facility] 06/11 00:54 Order name: Abdomen Exam Complete [facility] 06/11 03:41 Order name: SARS-COV-2 RT PCR [facility] 06/10 21:20 Order name: EKG; Complete Time: 21:21 cp 06/10 21:20 Order name: Cardiac monitoring; Complete Time: 21:41 cp 06/10 21:20 Order name: EKG - Nurse/Tech; Complete Time: 21:41 cp 06/10 21:20 Order name: IV Saline Lock; Complete Time: 21:54 06/10 21:20 Order name: Labs collected and sent; Complete Time: 21:54 06/10 21:20 Order name: O2 Per Protocol; Complete Time: 21:54 06/10 21:20 Order name: O2 Sat Monitoring; Complete Time: 21:54 06/11 00:54 Order name: CONS Pharmacy Consult EDRI 06/11 00:54 Order name: Heart Healthy EDRI EC/16 21:45 Rate is 57 beats/min. Rhythm is regular. IA interval is normal. QRS interval is normal. cp QT interval is normal. T waves are Inverted in lead aVR. Interpreted by me. Reviewed by me. Administered Medications: 21:35 Drug: Nitroglycerin 0.4 mg Route: Sublingual; fu 21:35 Follow up: Response: Pain is decreased fu 22:28 Drug: Losartan 50 mg Route: PO; fu 23:30 Follow up: Response: No adverse reaction fu 23:43 Drug: Tylenol 1000 mg Route: PO; fu 06/11 00:43 Follow up: Response: No adverse reaction fu 06/10 23:43 Drug: Nitroglycerin 0.4 mg Route: Sublingual; fu 06/11 00:43 Follow up: Response: Pain is decreased fu 06/10 23:44 Drug: Aspirin Chewable Tablet 324 mg Route: PO; fu 06/11 00:44 Follow up: Response: No adverse reaction Disposition: 07:04 Co-signature as Attending Physician, Victor Manuel Hong MD. [email or web address] Disposition: 06/11/20 00:11 Hospitalization ordered by Edmar Bird for Observation. Preliminary diagnosis are Chest pain, unspecified, Hypertensive heart disease. - Bed requested for Telemetry/MedSurg (observation). - Status is Observation. fu - Condition is Stable. - Problem is new. - Symptoms have improved. Signatures: Dispatcher [employer] EDRI Sindy Salcedo RN RN Bebeto Renteria PA PA cp Umadhay, Felix, RN RN fu Lewis, Lynsay, RN RN [facility] Victor Manuel Hong MD MD 7 Corrections: (The following items were deleted from the chart) 03:45 00:11 Hospitalization Ordered by Edmar Bird MD for Observation. Preliminary mw diagnosis is Chest pain, unspecified; Hypertensive heart disease. Bed requested for Telemetry/MedSurg (observation). Status is Observation. Condition is Stable. Problem is new. Symptoms have improved. cp 04:23 03:45 06/11/2020 00:11 Hospitalization Ordered by Edmar Bird MD for Observation. fu Preliminary diagnosis is Chest pain, unspecified; Hypertensive heart disease. Bed requested for Telemetry/MedSurg (observation). Status is Observation. Condition is Stable. Problem is new. Symptoms have improved. mw 19:00 06/10 21:50 Constitutional: Negative for body aches, chills, fever, poor PO intake, cp cp 06/11 19:00 06/10 21:50 Eyes: Negative for injury, pain, redness, and discharge, cp cp
--- NOTE | 2020-06-11 01:02 | P.HP ---
Certification for Inpatient Patient admitted to: Observation With expected LOS: <2 Midnights Patient will require the following post-hospital care: None Practitioner: I am a practitioner with admitting privileges, knowledge of patient current condition, hospital course, and medical plan of care. Services: Services provided to patient in accordance with Admission requirements found in Title 42 Section 412.3 of the Code of Federal Regulations Patient History Date of Service: 06/11/20 Reason for admission: Elevated blood pressure and chest discomfort History of Present Illness: 74-year-old female with past medical history of hypertension and anxiety who was recently been admitted to the hospital with chest discomfort and the workup was negative and was discharged home came back to ER with elevated blood pressure and chest discomfort which has been going on since this morning. Patient states that in the morning blood pressure was normal when she measured at home but later on it started trending up and started having chest discomfort. Denies any pain. Since retrosternal pressure-like nonradiating not associated with any diaphoresis. No nausea vomiting or diarrhea. Denies any fevers or chills. Patient was assessed in the ER and was admitted for further management of accelerated hypertension and to rule out chest pain to to rule out ACS Allergies iodine Allergy (Severe, Verified 05/29/20 01:03) Anaphylaxis Sulfa (Sulfonamide Antibiotics) Allergy (Verified 05/29/20 01:03) Hives/Rash Home medications list reviewed: Yes Home Medications: Aspirin [Ecotrin 81 MG] 81 mg PO DAILY #30 tablet. 05/29/20 Atorvastatin Calcium [Lipitor] 40 mg PO DAILY #30 tablet 05/29/20 Metoprolol Tartrate [Lopressor*] 25 mg PO BID #60 tab 05/29/20 Pantoprazole [Protonix Tab] 40 mg PO DAILY #30 tab 05/29/20 - Past Medical/Surgical History Past Medical History: Reviewed- Non-Contributory -: Anxiety -: HTN Past Surgical History: Reviewed- Non-Contributory -: Back -: Right knee - Social History Smoking Status: Never smoker Alcohol use: No CD- Drugs: No Review of Systems 10-point ROS is otherwise unremarkable Physical Examination - Vital Signs Temperature: 98.4 F Blood Pressure: 168/94 Pulse: 88 Respirations: 18 - Physical Exam General: Alert, In no apparent distress, Oriented x3 HEENT: Atraumatic, Normocephalic Neck: Supple Respiratory: Clear to auscultation bilaterally, Normal air movement Cardiovascular: Normal pulses, Regular rate/rhythm, Normal S1 S2 Capillary refill: <2 Seconds Gastrointestinal: Soft and benign, W/out hepatosplenomegaly Musculoskeletal: No clubbing, No swelling Integumentary: No rashes, No breakdown Neurological: Normal speech, Normal strength at 5/5 x4 extr, Other (Anxious ) Lymphatics: No axilla or inguinal lymphadenopathy - Studies Laboratory Data (last 24 hrs) 06/10/20 21:53: PT 11.3, INR 0.96 06/10/20 21:53: WBC 7.6 D, Hgb 12.5, Hct 37.7, Plt Count 261 D 06/10/20 21:53: Sodium 140, Potassium 4.0, BUN 13, Creatinine 0.83, Glucose 124 H, Magnesium 2.5 H D, Total Bilirubin 0.7, AST 205 H D, ALT 222 H D, Alkaline P hosphatase 145 H Assessment and Plan - Problems (Diagnosis) (1) Accelerated hypertension Current Visit: Yes Status: Acute (2) Chest pain, rule out acute myocardial infarction Current Visit: No Status: Acute (3) Hypertension Current Visit: No Status: Acute - Plan Accelerated hypertension Chest pain to rule out ACS Elevated LFTs Anxiety plan monitor under telemetry Trend cardiac enzymes Will continue aspirin patient was on statin at home will hold her statin for now as LFTs were elevated Get an ultrasound of the abdomen Antihypertensives titrated Hydralazine p.r.n. GI/DVT prophylaxis Advanced directives full code - Advance Directives Does patient have a Living Will: No Does patient have a Durable POA for Healthcare: Yes
[2020-06-11 02:07] LABS: CKMB Creatine Kinase MB 1.8 ng/mL (0.3-3.6); Troponin I < 0.02 ng/mL (0.0-0.045)
[2020-06-11] MEDS: MORPHINE 2 MG/ML SYR IV PRN (04:46)
[2020-06-11 05:00] VITALS: BMI 27.1
[2020-06-11 06:16] LABS: Albumin 3.6 g/dL (3.4-5.0); Bilirubin Direct 0.2 mg/dL (0-0.2); Bilirubin Total 0.7 mg/dL (0.2-1.0); Protein, Total 7.3 g/dL (6.4-8.2)
[2020-06-11] MEDS: PANTOPRAZOLE 40MG TABLET PO SCH (08:25)
[2020-06-11] MEDS: METOPROLOL TAR 25 MG TAB PO SCH ×2 (08:25→21:09)
[2020-06-11] MEDS: ASPIRIN EC 81 MG TAB PO SCH (08:25)
--- NOTE | 2020-06-11 09:19 | RAD REPORT ---
EXAM DESCRIPTION: RAD - Chest Single View - 06/10/2020 9:46 pm CLINICAL HISTORY: CHEST PAIN COMPARISON: Portable May 28 TECHNIQUE: AP portable chest image was obtained 06/10/2020 9:46 pm . FINDINGS: No mass or consolidation. Interstitial pattern is fractionally increased from comparison. This is in part due to a slightly shallow inspiration. Heart and vasculature are normal. No measurabl e pleural effusion and no pneumothorax. No acute bony abnormality seen. No acute aortic findings susp ected. IMPRESSION: No focal mass or consolidation. Slight increase in interstitial pattern is probably due to shallow inspiration. A mild interstitial e bienvenido or infiltrate is not excluded.
[2020-06-11] MEDS: ACETAMINOPHEN 500 MG TAB PO PRN ×3 (10:00→21:10)
--- NOTE | 2020-06-11 15:13 | RAD REPORT ---
EXAM DESCRIPTION: US - Abdomen Exam Complete - 06/11/2020 1:01 pm CLINICAL HISTORY: elevated LFT COMPARISON: CT abdomen and pelvis September 2017 FINDINGS: Gallbladder size is normal. No gallstones, wall thickening or pericholecystic fluid. Commo n bile duct is normal with no common duct stone identified. Liver and spleen are normal size with no focal liver lesions identifiable. The liver shows a very coa rsened, increased echogenicity with poor sonographic penetrance this is a pattern typical for diffuse fatty infiltration of the liver. This does decrease sensitivity for liver lesion detection. Doppler evaluation shows no portal vein abnormality. The pancreas is too obscured by bowel gas for full assessment. No hydronephrosis or suspicious mass in either kidney. Aorta and IVC show no significant finding. No ascites or bulky lymphadenopathy. IMPRESSION: Diffuse fatty infiltration of a normal size liver. No focal liver lesions seen on limite d assessment. Pancreas is grossly normal but too obscured by bowel gas to allow all full assessment
[2020-06-11] MEDS: HYDRALAZINE HCL 20 MG/ML VIAL IV PRN ×2 (16:18→21:10)
[2020-06-11] MEDS ORDERED: INFLUENZA VACCINE (for 3y+) 0.5 ML DOSE IMVAC ONE (17:00)
[2020-06-12] MEDS: MORPHINE 2 MG/ML SYR IV PRN (02:30)
[2020-06-12 05:37] LABS: Absolute Lymphocytes (CBC) 1.9 K/uL (0.7-4.9); Basophils % 1.2 % (0-1.3); Hematocrit 36.3 % (36.0-45.0); Lymphocytes % 29.1 % (15.3-44.8); MPV 8.6 fL (7.6-11.3); RBC Red Blood Cell Count 3.65 M/uL (3.86-4.86)
[2020-06-12 05:49] LABS: ALT/SGPT 136 U/L (12-78); AST/SGOT 77 U/L (15-37); Albumin 3.1 g/dL (3.4-5.0); Alkaline Phosphatase 117 U/L (45-117); BUN Blood Urea Nitrogen 11 mg/dL (7-18); Bicarbonate 27 mmol/L (21-32); Bilirubin Total 0.6 mg/dL (0.2-1.0); Glucose Level 108 mg/dL (74-106); HDL Cholesterol 70 mg/dL (40-60); LDL Cholesterol, Calculated 60 (<130); Potassium 3.9 mmol/L (3.5-5.1); Protein, Total 6.3 g/dL (6.4-8.2); Sodium Level 139 mmol/L (136-145)
--- NOTE | 2020-06-12 07:17 | P.PN ---
Subjective Date of Service: 06/11/20 Subjective: Improving Patient's blood pressure better controlled. She was here a couple weeks ago and was supposed to schedule to get a stress test as an outpatient as she had come over the new year's weekend. However, she did not get this done as she had planned on doing so in [facility]. She comes back in with uncontrolled blood pressure. At this time will go ahead and get an echo and a stress test to further evaluate her cardiac status. If this is negative then she can continue further workup as an outpatient. Review of Systems 10-point ROS is otherwise unremarkable Physical Examination - Vital Signs Temperature: 98 F Blood Pressure: 149/76 Pulse: 57 Respirations: 18 Pulse Ox (%): 95 - Physical Exam General: Alert, In no apparent distress, Oriented x3 HEENT: Atraumatic, PERRLA, EOMI Neck: Supple, JVD not distended Respiratory: Clear to auscultation bilaterally, Normal air movement Cardiovascular: Regular rate/rhythm, Normal S1 S2, No murmurs Gastrointestinal: Normal bowel sounds, Soft and benign, Non-distended, No tenderness Musculoskeletal: No clubbing, No swelling, No tenderness Neurological: Sensation intact, Cranial nerves 3-12 intact - Studies Medications List Reviewed: Yes Assessment & Plan - Problems (Diagnosis) (1) Malignant hypertension Current Visit: Yes Status: Acute (2) Chest pain, rule out acute myocardial infarction Current Visit: No Status: Acute - Plan 1. Serial troponins and EKG 2. BP improved 3. Echocardiogram and inpatient stress test 4. Anti-platelet therapy, anti coagulation, beta-chucho, statin, and O2 as needed 5. IV morphine for pain 6. Nitro p.r.n. Discharge Plan: Home Plan to discharge in: 24 Hours - Advance Directives Does patient have a Living Will: No Does patient have a Durable POA for Healthcare: Yes - Code Status/Comfort Care Code Status Assessed: Yes Code Status: Full Code Critical Care: No Time Spent Managing PTS Care (In Minutes): 35
[2020-06-12] MEDS: METOPROLOL TAR 25 MG TAB PO SCH (09:00)
[2020-06-12] MEDS: ASPIRIN EC 81 MG TAB PO SCH ×2 (09:00→11:59)
[2020-06-12] MEDS: CITALOPRAM 10 MG TABLET PO SCH ×2 (09:00→11:59)
[2020-06-12] MEDS: PANTOPRAZOLE 40MG TABLET PO SCH ×2 (09:00→12:00)
[2020-06-12] MEDS: LOSARTAN POTASSIUM 50 MG TABLET PO SCH ×2 (09:00→12:02)
[2020-06-12] MEDS ORDERED: ATORVASTATIN 40 MG TAB PO SCH (09:00)
[2020-06-12 09:43] VITALS: O2SAT 99
[2020-06-12] MEDS ORDERED: REGADENOSON 0.4 MG/5 ML SYR IV ONE (10:15)
--- NOTE | 2020-06-12 11:55 | RAD REPORT ---
EXAM DESCRIPTION: NM - Rest Stress Cardiac Imaging - 06/12/2020 11:41 am CLINICAL HISTORY: Chest pain COMPARISON: None. TECHNIQUE: The patient was administered 9.9 mCi of Tc 99m Sestamibi prior to resting SPECT imaging o f the heart. The patient was then administered 30.8 mCi of Tc 99m Sestamibi following exercise or pha rmacologic stress. Multiplanar SPECT images were reviewed. FINDINGS: The end diastolic volume is 67 ml, the end systolic volume is 21 ml, and the ejection frac tion is 69 %. No stress-induced ischemic changes identifiable. Small focus of diminished activity in the mid anteri or wall does not change between rest and stress imaging. No other areas of possible scarring. IMPRESSION: No stress-induced ischemic change. Small focus of scarring suspected in the midportion anterior wall. Ventricular volumes and ejection fraction are well within normal range.
[2020-06-12] MEDS: ACETAMINOPHEN 500 MG TAB PO PRN (12:08)
--- NOTE | 2020-06-12 12:43 | P.DS ---
Admission Date: 06/11/20 Discharge Date: 06/12/20 Primary Care Provider: Dr. Holloway; [facility] Disposition: ROUTINE DISCHARGE Discharge Condition: GOOD Reason for Admission: Elevated blood pressure and chest discomfort Consultations: none Procedures: ABUS: FINDINGS: Gallbladder size is normal. No gallstones, wall thickening or pericholecystic fluid. Common bile duct is normal with no common duct stone identified. Liver and spleen are normal size with no focal liver lesions identifiable. The liver shows a very coarsened, increased echogenicity with poor sonographic penetrance this is a pattern typical for diffuse fatty infiltration of the liver. This does decrease sensitivity for liver lesion detection. Doppler evaluation shows no portal vein abnormality. The pancreas is too obscured by bowel gas for full assessment. No hydronephrosis or suspicious mass in either kidney. Aorta and IVC show no significant finding. No ascites or bulky lymphadenopathy. IMPRESSION: Diffuse fatty infiltration of a normal size liver. No focal liver lesions seen on limited assessment. Pancreas is grossly normal but too obscured by bowel gas to allow all full assessment Stress test: FINDINGS: The end diastolic volume is 67 ml, the end systolic volume is 21 ml, and the ejection fraction is 69 %. No stress-induced ischemic changes identifiable. Small focus of diminished activity in the mid anterior wall does not change between rest and stress imaging. No other areas of possible scarring. IMPRESSION: No stress-induced ischemic change. Small focus of scarring suspected in the midportion anterior wall. Ventricular volumes and ejection fraction are well within normal range. Medical Problem List: Chest pain with negative cardiac stress test Hypertensive urgency with history of hypertension Hyperlipidemia Elevated liver function likely related to medication and fatty liver Depression with anxiety Brief History of Present Illness: 74-year-old female presented to the emergency room with chest pain. The patient was admitted for further evaluation and treatment. Hospital Course: Patient presented with chest pain. Cardiac enzymes unremarkable. 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 Cardiac stress test was performed. No stress-induced ischemia was identified. No further cardiac evaluation needed at this time. recommend follow up with cardiology in 1-2 weeks to follow up this hospitalization. Patient may continue with aspirin 81 mg daily. Patient with history of hypertension. Patient presented with hypertensive urgency. Patient had seen Cardiology recently. Additional medication was added by Cardiology on her last visit but instructions were not clear. Patient apparently stopped her prior medication-losartan and continue with a new medication-metoprolol. When she arrived blood pressures were elevated. Both medications were restarted. Blood pressures have improved. At discharge, hydrochlorothiazide has been added. At discharge patient will continue with lo sartan 100 mg daily, hydrochlorothiazide 25 mg daily, and metoprolol 25 mg 1 pill twice daily. Recommend to maintain blood pressure less than 130/80. Further adjustment in her medication may be required. This can be done with the help of her PCP or cardiology. Recommend to recheck lab-BMP in 1 week to monitor her progress including potassium as the patient will be started on hydrochlorothiazide. Patient with hyperlipidemia. Patient did have elevation in her liver function test. Patient was recently started on Lipitor 40 mg daily. Lipitor was discontinued. Liver function tests improved. Liver ultrasound showed fatty liver. Hepatitis panel obtained. This will need to be followed up as an outpatient. LDL 60. At discharge will recommend to discontinue Lipitor. Recommend to recheck fasting lipid panel and CMP in 4-6 weeks to monitor her progress. If fasting lipid panel still elevated then consider using Lipitor but at a lower dose. This can be further addressed by her PCP or cardiology. Education on fatty liver will be provided. Patient with depression with anxiety. At discharge she will continue with her medication of Celexa 20 mg daily. Vital Signs/Physical Exam: Temp Pulse Resp BP Pulse Ox 97.9 F 62 18 143/60 H 99 06/12/20 08:00 06/12/20 09:00 06/12/20 08:00 06/12/20 09:00 06/12/20 08:00 General: Alert, In no apparent distress, Oriented x3, Cooperative HEENT: Atraumatic Neck: Supple Respiratory: Clear to auscultation bilaterally, Normal air movement Cardiovascular: Normal pulses, Regular rate/rhythm Gastrointestinal: Normal bowel sounds, Soft and benign, Non-distended, No tenderness, No masses, No rebound, No guarding Integumentary: No erythema, No warmth, No cyanosis Neurological: Normal speech, Normal strength at 5/5 x4 extr, Normal tone, Normal affect Laboratory Data at Discharge: WBC 6.6 K/uL (4.3-10.9) 06/12/20 05:05 Hgb 12.1 g/dL (12.0-15.0) 06/12/20 05:05 Hct 36.3 % (36.0-45.0) 06/12/20 05:05 Plt Count 245 K/uL (152-406) 06/12/20 05:05 PT 11.3 SECONDS (9.5-12.5) 06/10/20 21:53 INR 0.96 06/10/20 21:53 Sodium 139 mmol/L (136-145) 06/12/20 05:05 Potassium 3.9 mmol/L (3.5-5.1) 06/12/20 05:05 BUN 11 mg/dL (7-18) 06/12/20 05:05 Creatinine 0.57 mg/dL (0.55-1.3) 06/12/20 05:05 Glucose 108 mg/dL (74-106) H 06/12/20 05:05 Magnesium 2.5 mg/dL (1.8-2.4) H D 06/10/20 21:53 Total Bilirubin 0.6 mg/dL (0.2-1.0) 06/12/20 05:05 AST 77 U/L (15-37) H D 06/12/20 05:05 ALT 136 U/L (12-78) H 06/12/20 05:05 Alkaline Phosphatase 117 U/L (45-117) 06/12/20 05:05 Troponin I < 0.02 ng/mL (0.0-0.045) 06/11/20 04:33 Triglycerides 78 mg/dL (<150) 06/12/20 05:05 Cholesterol 146 mg/dL (<200) 06/12/20 05:05 HDL Cholesterol 70 mg/dL (40-60) H 06/12/20 05:05 Cholesterol/HDL Ratio 2.09 06/12/20 05:05 Home Medications: Aspirin [Ecotrin 81 MG] 81 mg PO DAILY #30 tablet. 05/29/20 Metoprolol Tartrate [Lopressor*] 25 mg PO BID #60 tab 05/29/20 Pantoprazole [Protonix Tab*] 40 mg PO DAILY #30 tab 05/29/20 Citalopram [Celexa*] 20 mg PO DAILY 06/11/20 Losartan Potassium 100 mg PO DAILY 06/11/20 hydroCHLOROthiazide [Hydrochlorothiazide] 25 mg PO DAILY #30 tablet 06/12/20 New Medications: hydroCHLOROthiazide [Hydrochlorothiazide] 25 mg PO DAILY #30 tablet Patient Discharge Instructions: Follow up with PCP in 1 week to follow up this hospitalization. Patient presented with chest pain. Cardiac enzymes unremarkable. 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 Cardiac stress test was performed. No stress-induced ischemia was identified. No further cardiac evaluation needed at this time. recommend follow up with cardiology in 1-2 weeks to follow up this hospitalization. Patient may continue with aspirin 81 mg daily. Patient with history of hypertension. Patient presented with hypertensive urgency. Patient had seen Cardiology recently. Additional medication was added by Cardiology on her last visit but instructions were not clear. Patient apparently stopped her prior medication-losartan and continue with a new medication-metoprolol. When she arrived blood pressures were elev ated. Both medications were restarted. Blood pressures have improved. At discharge, hydrochlorothiazide has been added. At discharge patient will continue with losartan 100 mg daily, hydrochlorothiazide 25 mg daily, and metoprolol 25 mg 1 pill twice daily. Recommend to maintain blood pressure less than 130/80. Further adjustment in her medication may be required. This can be done with the help of her PCP or cardiology. Recommend to recheck lab-BMP in 1 week to monitor her progress including potassium as the patient will be started on hydrochlorothiazide. Patient with hyperlipidemia. Patient did have elevation in her liver function test. Patient was recently started on Lipitor 40 mg daily. Lipitor was discontinued. Liver function tests improved. Liver ultrasound showed fatty liver. Hepatitis panel obtained. This will need to be followed up as an outpatient. LDL 60. At discharge will recommend to discontinue Lipitor. Recommend to recheck fasting lipid panel and CMP in 4-6 weeks to monitor her progress. If fasting lipid panel still elevated then consider using Lipitor but at a lower dose. This can be further addressed by her PCP or cardiology. Education on fatty liver will be provided. Patient with depression with anxiety. At discharge she will continue with her medication of Celexa 20 mg daily. Diet: AHA Activity: Ad gina Followup: Master Holloway MD [Primary Care Provider] - Time spent managing pt's care (in minutes): 55
--- NOTE | 2020-06-12 13:09 | RAD REPORT ---
EXAM DESCRIPTION: CT - Head Brain Wo Cont - 06/11/2020 1:22 am CLINICAL HISTORY: 74-year-old female with headache. COMPARISON: None. TECHNIQUE: CT brain without contrast. This exam was performed according to our departmental dose opt imization program which includes use of automated exposure control, adjustment of the mA and/or kV ac cording to patient size and/or use of iterative reconstruction technique. FINDINGS: Multifocal regions of patchy hypoattenuation are present in a subcortical and periventricu lar deep white matter distribution, nonspecific; however, most likely represent small vessel ischemic disease, age indeterminate. The ventricles, are mildly prominent suggesting underlying mild volume loss. The romero-white matter differentiation is preserved. There is no mass effect, midline shift, intra- or extra-axial fluid c ollection/acute hemorrhage. Incidental note is made of bilateral basal ganglia calcification. The o sseous structures are unremarkable. The paranasal sinuses and mastoid air cells are clear. IMPRESSION: 1. No acute intracranial abnormalities. Nonspecific white matter change most likely sm all vessel ischemic disease, age indeterminate. 2. CT is insensitive for early evaluation of acute stroke. If there is clinical concern for acute ischemia, an MRI may be considered. Electronically signed by: Rosemary Vallejo MD 06/10/2020 11:14 PM [employer]CE[employer]IGHT MANAGER Due to temporary technical issues with the PACS/Fluency reporting system, reports are being signed by the in house radiologist without review as a courtesy to ensure prompt reporting. The interpreting r adiologist is fully responsible for the content of the report.
[2020-06-12 14:53] VITALS: BP 150/80; TEMP 97.8
--- NOTE | 2020-06-13 08:21 | TREADPHA ---
DX: CHEST PAIN Date of Study: 04/12/2021 Ht: 5' 3 " Wt: 153 lb 0 oz Consulting Physician: JENNIFER MEDICATIONS: TYLENOL, ASPIRIN, COZAAR, LOPRESSOR HISTORY: HYPERTENSION, ANXIETY, NO FAMILY HISTORY PHYSICIAL EXAMINATION: RESTING B.P.: 176/93 RESTING H.R.: 64 RESTING EKG: NORMAL PROTOCOL: PHARMACOLOGIC EXERCISE TIME: 3:30 B.P. AT [place] STRESS: IMPRESSION: NO STRESS INDUCED ISCHEMIA PER ELECTROCARDIOGRAM.
--- NOTE | 2020-06-13 08:54 | ECHO ---
HEIGHT: 5 ft 3 in WEIGHT: 153 lb 0 oz DATE OF STUDY: 06/12/[address]: Terry Bryan MD 2-DIMENSIONAL: YES M.MODE: YES DOPPLER: YES COLOR FLOW: YES TDS: PORTABLE: DEFINITY: BUBBLE STUDY: DIAGNOSIS: CHEST PAIN RULE OUT ACUTE CORNARY SYNDROME CARDIAC HISTORY: CATHERIZATION: NO SURGERY: NO PROSTHETIC VALVE: NO PACEMAKER: NO MEASUREMENTS (cm) DIASTOLIC (NORMALS) SYSTOLIC (NORMALS) IVSd 1.2 (0.6-1.2) LA Diam 2.8 (1.9-4.0) LVEF 71% LVIDd 4.4 (3.5-5.7) LVIDs 2.6 (2.0-3.5) %FS 40% LVPWd 1.3 (0.6-1.2) Ao Diam 2.5 (2.0-3.7) 2 DIMENSIONAL ASSESSMENT: RIGHT ATRIUM: NORMAL LEFT ATRIUM: NORMAL RIGHT VENTRICLE: NORMAL LEFT VENTRICLE: NORMAL TRICUSPID VALVE: NORMAL MITRAL VALVE: NORMAL PULMONIC VALVE: NORMAL AORTIC VALVE: NORMAL PERICARDIAL EFFUSION: NONE AORTIC ROOT: NORMAL LEFT VENTRICULAR WALL MOTION: NORMAL DOPPLER/COLOR FLOW: NORMAL COMMENTS: NORMAL LEFT VENTRICULAR EJECTION FRACTION 55-60%. NORMAL WALL MOTION. TECHNOLOGIST: MICAELA PANG
[2020-06-15 19:51] LABS: HBsAG Nonreactive (Nonreactive)
== END 2020-06-12 15:23 | disposition home or self-care (01) ==
LOC: ER 19:39 → ERHOLD 06-11 00:55 → 2ND 06-11 04:07
PROVIDERS: ADMIT Family Medicine; ATTEND Family Medicine
DX: R07.9 Chest pain, unspecified (principal); I16.0 Hypertensive urgency; I10 Essential (primary) hypertension; E78.5 Hyperlipidemia, unspecified; F41.8 Other specified anxiety disorders; K76.0 Fatty (change of) liver, not elsewhere classified; Z20.822 Contact with and (suspected) exposure to COVID-19
CPT/HCPCS: 93005; 93017; 93306; 85025 ×2; 80048; 36415 ×2; 83735; 85610; 80061; 80076 ×2; 84484 ×3; 82553 ×3; 80053; 83880; 80074; 70450; 71045; 76700; 94760 ×2; 78452; 99285; U0003; J0360 ×2; J2270 ×2; J2785; A9500; G0378

== ENCOUNTER 2021-03-29 14:55 | Emergency (ER) | payer OTHER ==
[2021-03-29] MEDS ORDERED: NA CHLORIDE 0.9% 1,000 ML ONE (15:50)
[2021-03-29] MEDS ORDERED: DIAZEPAM 5 MG TABLET ONE (15:50)
[2021-03-29 16:16] LABS: Urine Blood Trace-lysed (Negative); Urine Glucose Negative (Negative); Urine Protein Trace (Negative); Urine Specific Gravity 1.015 (1.005-1.030)
[2021-03-29 16:22] LABS: Potassium 4.3 mmol/L (3.5-5.1)
[2021-03-29 16:55] LABS: Absolute Lymphocytes (CBC) 1.5 K/uL (0.7-4.9); Basophils % 0.8 % (0-1.3); Hematocrit 37.6 % (36.0-45.0); Lymphocytes % 16.7 % (15.3-44.8); MPV 7.4 fL (7.6-11.3); RBC Red Blood Cell Count 3.74 M/uL (3.86-4.86)
[2021-03-29] MEDS ORDERED: MEPERIDINE HCL 25 MG/ML SYR ONE (17:24)
--- NOTE | 2021-03-29 18:01 | RAD REPORT ---
EXAM DESCRIPTION: CT - Head Brain Wo Cont - 03/29/2021 5:48 pm CLINICAL HISTORY: HEADACHE COMPARISON: <Comparisons> TECHNIQUE: All CT scans are performed using dose optimization technique as appropriate and may inclu de automated exposure control or mA/KV adjustment according to patient size. FINDINGS: No intracranial hemorrhage, hydrocephalus or extra-axial fluid collection.No areas of brai n edema or evidence of midline shift. Mild chronic small vessel ischemic and The paranasal sinuses and mastoids are clear. The calvarium is intact. IMPRESSION: No acute intracranial abnormality.
--- NOTE | 2021-03-29 19:00 | ER ---
Nurse's Notes [facility] Name: Mechelle Sher Age: 75 yrs Sex: Female : 1945 Arrival Date: 03/29/2021 Time: 14:56 Bed 5 Private MD: Master Holloway Diagnosis: Acute stress reaction;Alcohol dependence with withdrawal, uncomplicated Presentation: 03/29 15:16 Chief complaint: Pt's friend states "her blood pressure was over 200 (systolic) and aa5 she's been shaking all over and couldn't stop and she just lost her about 2 weeks ago". Pt's friend states "Dr. Holloway called her in some Xanax but she hasn't taken it yet". Pt c/o headache. Coronavirus screen: headache. Ebola Screen: No symptoms or risks identified at this time. Initial Sepsis Screen: Does the patient meet any 2 criteria? No. Patient's initial sepsis screen is negative. Does the patient have a suspected source of infection? No. Patient's initial sepsis screen is negative. Risk Assessment: Do you want to hurt yourself or someone else? Patient reports no desire to harm self or others. Onset of symptoms was March 29, 2021. 15:16 Acuity: DARRIUS 3 aa5 15:16 Method Of Arrival: Wheelchair aa5 Triage Assessment: 19:57 General: Appears in no apparent distress. Behavior is calm, cooperative, appropriate kc4 for age. Pain: Denies pain. Historical: - Allergies: 15:16 Iodine; aa5 15:16 Sulfa (Sulfonamide Antibiotics); aa5 - PMHx: 15:16 Anxiety; Hypertension; aa5 - Immunization history:: Client reports receiving the 2nd dose of the Covid vaccine. - Social history:: Smoking status: Patient denies any tobacco usage or history of. - Family history:: not pertinent. - Hospitalizations: : No recent hospitalization is reported. Screenin:30 Abuse screen: Denies threats or abuse. Denies injuries from another. Nutritional bp screening: No deficits noted. Tuberculosis screening: No symptoms or risk factors identified. Fall Risk None identified. Assessment: 15:16 General: SEE TRIAGE NOTE. bp 17:15 Reassessment: No changes from previously documented assessment. Patient and/or family bp updated on plan of care and expected duration. Pain level reassessed. PT C/O CARUSO, NO NEURO FINDINGS. Vital Signs: 15:16 BP 178 / 117; Pulse 96; Resp 18 S; Temp 98.4(TE); Pulse Ox 98% on R/A; Weight 68.04 kg aa5 (R); Height 5 ft. 4 in. (162.56 cm) (R); 17:15 BP 194 / 93; Pulse 87; Resp 18; Pulse Ox 99% ; bp 19:20 BP 161 / 98; Pulse 78; Resp 20; Temp 98.0(O); Pulse Ox 99% on R/A; Pain 0/10; kc4 15:16 Body Mass Index 25.75 (68.04 kg, 162.56 cm) aa5 ED Course: 14:56 Patient arrived in ED. am2 14:56 Master Holloway MD is Private Physician. am2 15:16 Arm band placed on. aa5 15:18 Triage completed. aa5 15:20 Antelmo Mccormick, SAVANAH is Primary Nurse. bp 15:21 Patient placed in an exam room, on a stretcher. ll1 15:25 Garo Jo MD is Attending Physician. rn 15:50 Inserted saline lock: 22 gauge in left antecubital area, using aseptic technique. Blood ll1 collected. 15:51 Patient has correct armband on for positive identification. Placed in gown. Bed in low mh5 position. Side rails up X 1. Warm blanket given. head of store operations on. Pulse ox on. NIBP on. 16:30 CBC with Diff Sent. bp 16:30 Basic Metabolic Panel Sent. bp 17:48 CT Head Brain wo Cont In Process Unspecified. EDMS 18:59 Master Holloway MD is Referral Physician. rn 19:57 IV discontinued, intact, bleeding controlled, No redness/swelling at site. Pressure kc4 dressing applied. 19:57 No provider procedures requiring assistance completed. kc4 Administered Medications: 16:10 Drug: Valium (diazepam) 5 mg Route: PO; bp 17:22 Follow up: Response: No adverse reaction bp 16:10 Drug: NS 0.9% 1000 ml Route: IV; Rate: 1000 ml; Site: right antecubital; bp 17:29 Drug: Demerol (meperidine) 25 mg Route: IVP; Site: left antecubital; bp 18:05 Follow up: Response: No adverse reaction bp Outcome: 19:00 Discharge ordered by . rn 19:21 Patient left the ED. 4 19:57 Discharged to home via wheelchair. kc4 19:57 Condition: stable 19:57 Discharge instructions given to patient, Instructed on discharge instructions, follow up and referral plans. Demonstrated understanding of instructions, follow-up care, medications. Signatures: Dispatcher [employer] EDMS Garo Jo MD MD rn Calderon, Audri, RN RN 5 Frances Bill 5 Nicole White Brian, RN RN bp Lewis, Lynsay, RN RN 1 Cici Mcclendon kc4
--- NOTE | 2021-03-29 19:00 | EDPHYS ---
Physician Documentation [facility] Name: Mechelle Sher Age: 75 yrs Sex: Female : 1945 Arrival Date: 03/29/2021 Time: 14:56 Bed 5 Private MD: Master Holloway ED Physician Garo Jo HPI: 03/29 16:54 This 75 yrs old Female presents to ER via Wheelchair with complaints of High rn Blood Pressure, anxious. 16:54 The patient has elevated blood pressure and discovered this at home. Onset: The rn symptoms/episode began/occurred at an unknown time. Modifying factors:. Associated signs and symptoms: Pertinent positives: Anxiousness and tremors. Severity of symptoms: At its worst the blood pressure was moderate, in the emergency department the blood pressure is improved. The patient has experienced similar episodes in the past. The patient has not recently seen a physician. Patient reports has been 2 weeks ago, has been doing okay, but today was going to go to a friend's house and felt really anxious, felt like she could not drive felt like she was tremulous. Still managed to go run errands and go to [employer] to try and eat. States called PCP and Dr. Holloway was going to call in prescription for Xanax but pharmacy did not have it ready. Denies any focal injury or neurological complaint. Denies fever. Denies abdominal pain or vomiting. States feels like a ball in her chest and throat. Friend who is here also concerned that she has been drinking lately to cope.. Historical: - Allergies: 15:16 Iodine; aa5 15:16 Sulfa (Sulfonamide Antibiotics); aa5 - PMHx: 15:16 Anxiety; Hypertension; aa5 - Immunization history:: Client reports receiving the 2nd dose of the Covid vaccine. - Social history:: Smoking status: Patient denies any tobacco usage or history of. - Family history:: not pertinent. - Hospitalizations: : No recent hospitalization is reported. ROS: 16:54 Constitutional: Negative for fever, chills, and weight loss, Eyes: Negative for injury, rn pain, redness, and discharge, Neck: Negative for injury, pain, and swelling, Cardiovascular: Negative for palpitations, and edema, Respiratory: Negative for shortness of breath, cough, wheezing, and pleuritic chest pain, Abdomen/GI: Negative for abdominal pain, nausea, vomiting, diarrhea, and constipation, Back: Negative for injury and pain, : Negative for injury, bleeding, discharge, and swelling, MS/Extremity: Negative for injury and deformity, Skin: Negative for injury, rash, and discoloration, Neuro: Negative for headache, weakness, numbness, tingling, and seizure. Exam: 16:44 ECG was reviewed by the Attending Physician. rn 16:54 Constitutional: This is a well developed, well nourished patient who is awake, alert, rn and in no acute distress. Goes from speaking calmly to emotional to crying and back to calm. Head/Face: Normocephalic, atraumatic. Eyes: Periorbital areas with no swelling, redness, or edema. Cardiovascular: Regular rate and rhythm. No pulse deficits. Respiratory: No increased work of breathing, no retractions or nasal flaring. Abdomen/GI: Soft, non-tender Skin: Warm, dry MS/ Extremity: Pulses equal, no cyanosis. Neuro: Awake and alert, GCS 15, oriented to person, place, time, and situation. Cranial nerves II-XII grossly intact. Motor strength 5/5 in all extremities. Sensory grossly intact. Cerebellar exam normal. Vital Signs: 15:16 BP 178 / 117; Pulse 96; Resp 18 S; Temp 98.4(TE); Pulse Ox 98% on R/A; Weight 68.04 kg aa5 (R); Height 5 ft. 4 in. (162.56 cm) (R); 17:15 BP 194 / 93; Pulse 87; Resp 18; Pulse Ox 99% ; bp 19:20 BP 161 / 98; Pulse 78; Resp 20; Temp 98.0(O); Pulse Ox 99% on R/A; Pain 0/10; kc4 15:16 Body Mass Index 25.75 (68.04 kg, 162.56 cm) aa5 MDM: 15:25 Patient medically screened. rn 18:57 Differential diagnosis: hypertensive crisis, Malignant HTN, Alcohol withdrawal, acute rn stress reaction, anxiety, bereavement. Data reviewed: vital signs, nurses notes, lab test result(s), EKG, radiologic studies, CT scan, and as a result, I will discharge patient. Data interpreted: clinical trials assistant: rate is 87 beats/min, rhythm is normal sinus rhythm, regular, with no ectopy, Interpretation: normal rate, normal rhythm, Pulse oximetry: on room air is 99 %. Interpretation: normal. Counseling: I had a detailed discussion with the patient and/or guardian regarding: the historical points, exam findings, and any diagnostic results supporting the discharge/admit diagnosis, lab results, radiology results, the need for outpatient follow up, to return to the emergency department if symptoms worsen or persist or if there are any questions or concerns that arise at home. Response to treatment: the patient's symptoms have markedly improved after treatment. Special discussion: I discussed with the patient/guardian in detail that at this point there is no indication for admission to the hospital. It is understood, however, that if the symptoms persist or worsen the patient needs to return immediately for re-evaluation. Based on the history and exam findings, there is no indication for further emergent testing or inpatient evaluation. I discussed with the patient/guardian the need to see the primary care provider for further evaluation of the symptoms. ED course: Patient feels much better now. Improvement of heart rate and blood pressure. Likely a combination of bereavement/acute stress reaction given the of her in combination to mild alcohol withdrawal as did not have a normal amount of alcohol today. States only had 2 glasses of wine last night and a small amount of alcohol today. Had long discussion with her and friend in room regarding alcohol withdrawal and her mild withdrawal at this time. Shaking and anxiousness resolved after just 5 mg p.o. Valium. Has Xanax prescription waiting at the pharmacy. Urged to slowly wean off of alcohol since is a daily drinker in order to avoid alcohol withdrawal and plan set forth. Understands the slow weaning process in addition to support groups and supportive friends. Will follow up with Dr. Holloway for further instructions. If worsens told to come back for admission. Spoke with patient regarding possible admission and offered admission, patient request to go home and would rather try to wean herself off on her own as she had been planning to do so anyway.. 19:00 Counseling: I had a detailed discussion with the patient and/or guardian regarding: the rn presence of at least one elevated blood pressure reading (>120/80) during this emergency department visit. Special discussion: I have referred the patient to see his PCP for further evaluation of high blood pressure. 03/29 15:46 Order name: CBC with Diff rn 03/29 15:46 Order name: Basic Metabolic Panel rn 03/29 15:47 Order name: CBC with Automated Diff; Complete Time: 17:14 EDTX 03/29 15:47 Order name: Basic Metabolic Panel; Complete Time: 17:14 EDTX 03/29 15:52 Order name: ETOH Level; Complete Time: 17:14 rn 03/29 16:16 Order name: Urine Dipstick-Ancillary; Complete Time: 17:14 EDTX 03/29 15:46 Order name: IV Start; Complete Time: 15:47 rn 03/29 15:47 Order name: EKG; Complete Time: 15:47 rn 03/29 15:47 Order name: EKG - Nurse/Tech; Complete Time: 16:03 rn 03/29 17:21 Order name: CT Head Brain wo Cont; Complete Time: 18:13 rn EC:44 Rate is 90 beats/min. Rhythm is regular. QRS [place] is Normal. IA interval is normal. QRS rn interval is normal. QT interval is normal. No Q waves. T waves are Normal. No ST changes noted. Clinical impression: Normal ECG. Interpreted by me. Reviewed by me. Administered Medications: 16:10 Drug: Valium (diazepam) 5 mg Route: PO; bp 17:22 Follow up: Response: No adverse reaction bp 16:10 Drug: NS 0.9% 1000 ml Route: IV; Rate: 1000 ml; Site: right antecubital; bp 17:29 Drug: Demerol (meperidine) 25 mg Route: IVP; Site: left antecubital; bp 18:05 Follow up: Response: No adverse reaction bp Disposition Summary: 03/29/21 19:00 Discharge Ordered Location: Home rn Problem: new rn Symptoms: have improved rn Condition: Stable rn Diagnosis - Acute stress reaction rn - Alcohol dependence with withdrawal, uncomplicated rn Followup: rn - With: Master Holloway MD - When: 2 - 3 days - Reason: Recheck today's complaints, Re-evaluation by your physician Discharge Instructions: - Discharge Summary Sheet rn - Alcohol Withdrawal Syndrome rn - Alcohol Use Disorder rn - Stress, Adult rn Forms: - Medication Reconciliation Form rn - Thank You Letter rn - Antibiotic case management rn - Prescription Opioid Use rn Signatures: Dispatcher [employer] Gaor Juarez MD MD rn Calderon, Cheli, RN RN aa5 Antelmo Mccormick, RN RN bp
[2021-03-29 19:54] VITALS: O2SAT 99
[2021-03-29 19:56] VITALS: BP 161/98; TEMP 98
--- NOTE | 2021-04-02 18:35 | EKG ---
Test Date: 2021-03-29 Test Time: 15:53:25 [place]: [facility]OVA MEASUREMENT RESULTS: Intervals: Rate: 88 MS: 144 QRSD: 80 QT: 382 QTc: 462 [place]: P: 90 MS: 144 QRS: 76 T: 57 INTERPRETIVE STATEMENTS: Normal sinus rhythm Nonspecific ST abnormality Abnormal ECG Compared to ECG 06/10/2020 21:36:50 ST (T wave) deviation now present Sinus bradycardia no longer present Electronically Signed On 04-02-21 18:24:47 [employer] by Brayan Mcclelland
--- OUTSIDE RECORDS SUMMARY | 2021-04-07 11:43 | XMS REPORT | Continuity of Care Document ---
:1945 Author Organization [facility] t Address [address] [place] [address] Dr. Rice [address] [place] [id number] Care Team Providers Name Role Phone NADIRA LOPEZ (OOGA) Attending Clinician Unavailable SUE Attending Clinician Unavailable Payers Payer Name Policy Type Policy Number Effective Date Expiration Date S hernan MEDICARE A B [id number] 2009 00:00:00 [employer] PPO OPEN [facility] [id number] 2013 NAP 00:00:00 Problems This patient has no known problems. Allergies, Adverse Reactions, Alerts Allergy Allergy Status Severity Reaction(s) Onset Inactive Treating Comm ents Source Name Type Date Date Clinician IODINE Allergy Active [facility] NG PRODUCTS SULFUR Allergy Active Low Rash [facility] Medications This patient has no known medications. Vital Signs Vital Name Observation Time Observation Value Comments Source HEIGHT 2020-09-21 10:58:00 160 cm WEIGHT 2020-09-21 10:58:00 69.854 kg HEIGHT 2020-06-08 13:13:00 160 cm WEIGHT 2020-06-08 13:13:00 72.122 kg Procedures This patient has no known procedures. Encounters Start End Encounter Admission Attending Care Care Encounter Source Date/Time Date/Time Type Type Clinicians Facility Department ID 2021-06-21 2021-06-21 Outpatient [facility] [id number] 00:[facility]00 00:00:00 [facility] 2020-09-21 2020-09-21 Outpatient [facility] [id number] 00:00[facility]00 00:00:00 [facility] 2020-06-08 2020-06-[address] [facility] [id number] 00:00[facility]00 00:00:00 [facility] 2019-08-10 2019-08-[address] [facility] [id number] 00:00[facility]00 00:00:00 [id number] [facility] Results This patient has no known results.
== END 2021-03-29 19:21 | disposition home or self-care (01) ==
LOC: ER 14:55
DX: F10.239 Alcohol dependence with withdrawal, unspecified (principal); I10 Essential (primary) hypertension; Z88.2 Allergy status to sulfonamides; Z91.048 Other nonmedicinal substance allergy status
CPT/HCPCS: 93005; 85025; 80048; 36415; 80320; 81003; 70450; 96374; 99284; J2175; J7030

== ENCOUNTER 2021-09-16 20:13 | Emergency (ER) | payer OTHER ==
--- OUTSIDE RECORDS SUMMARY | 2021-09-16 20:17 | XMS REPORT | Continuity of Care Document ---
:1945 Author Organization [facility] t Address [address] [place] [address] Dr. Rice [address] [place] [id number] Care Team Providers Name Role Phone NADIRA LOPEZ (OOGA) Attending Clinician Unavailable SUE Attending Clinician Unavailable Payers Payer Name Policy Type Policy Number Effective Date Expiration Date S hernan MEDICARE A B [id number] 2009 00:00:00 AET[employer] PPO OPEN [facility] [id number] 2013 NAP 00:00:00 Problems This patient has [...] Clinicians Facility Department ID 2021-06-21 2021-06-21 [facility] [id number] 00:[facility]00 00:00:00 [facility] 2020-09-21 2020-09-21 Outpatient [facility] [id number] 00[facility]00[facility]00 00:00:00 [facility] 2020-06-08 2020-06-08 Outpatient SUE [facility] [id number] 00:00[facility]00 00:00:00 [facility] 2019-08-10 2019-08-10 Outpatient [facility] [id number] 00:00[facility]00 00:00:00 [id number] [facility] Results This patient has no known results.
--- NOTE | 2021-09-16 21:22 | RAD REPORT ---
EXAM DESCRIPTION: RAD - Chest Single View - 09/16/2021 9:08 pm CLINICAL HISTORY: HTN COMPARISON: Portable 06/10/2020 TECHNIQUE: AP portable chest image was obtained 09/16/2021 9:08 pm . FINDINGS: Lungs are clear. Interstitial pattern matches comparison. Heart and vasculature are normal . No measurable pleural effusion and no pneumothorax. No acute bony abnormality seen. No acute aortic findings suspected. IMPRESSION: No acute cardiopulmonary process. No significant change from comparison study.
[2021-09-16 21:43] LABS: Absolute Lymphocytes (CBC) 2.8 K/uL (0.7-4.9); Hematocrit 34.4 % (36.0-45.0); Lymphocytes % 30.9 % (15.3-44.8); MPV 7.2 fL (7.6-11.3); RBC Red Blood Cell Count 3.53 M/uL (3.86-4.86)
[2021-09-16 22:00] LABS: Potassium 3.9 mmol/L (3.5-5.1); Troponin High Sensitivity 24.8 pg/mL (<58.9)
[2021-09-16] MEDS ORDERED: METOPROLOL TARTRATE 5 MG/5 ML INJ IV ONE (22:06)
--- NOTE | 2021-09-16 23:57 | ER ---
Nurse's Notes [facility] Name: Mechelle Sher Age: 76 yrs Sex: Female : 1945 Arrival Date: 09/16/2021 Time: 20:16 Bed 3 Private MD: Master Holloway Diagnosis: Hypertensive heart disease without heart failure;Anxiety disorder, unspecified Presentation: 09/16 20:40 Chief complaint: Patient states: started feeling flushed and not feeling good around lg3 1730. took my blood pressure and it was 168/98. took a nap and woke up and still not feeling well so i checked it two more times around 1999. it was 199/97 and 188/102. that was when i decided i needed to come in to be seen. i am also having some back issues causing pain in my left shoulder and arm. i had an MRI yesterday and have a follow up tomorrow. Coronavirus screen: Client denies travel out of the [place] in the last 14 days. At this time, the client does not indicate any symptoms associated with coronavirus-19. Ebola Screen: No symptoms or risks identified at this time. Initial Sepsis Screen: Does the patient meet any 2 criteria? No. Patient's initial sepsis screen is negative. Does the patient have a suspected source of infection? No. Patient's initial sepsis screen is negative. Risk Assessment: Do you want to hurt yourself or someone else? Patient reports no desire to harm self or others. Onset of symptoms was September 16, 2021. 20:40 Method Of Arrival: Ambulatory lg3 20:40 Acuity: DARRIUS 3 lg3 Triage Assessment: 20:47 General: Appears in no apparent distress. comfortable, Behavior is calm, cooperative. lg3 Pain: Complains of pain in left shoulder and left arm. EENT: No deficits noted. No signs and/or symptoms were reported regarding the EENT system. Neuro: No deficits noted. Level of Consciousness is awake, alert, obeys commands, Oriented to person, place, time, situation. Cardiovascular: No deficits noted. Denies chest pain, shortness of breath. Cardiovascular: Capillary refill < 3 seconds Clubbing of nail beds is absent JVD is absent Patient's skin is warm and dry. Respiratory: No deficits noted. Airway is patent Trachea midline Respiratory effort is even, unlabored, Respiratory pattern is regular, symmetrical. GI: No deficits noted. No signs and/or symptoms were reported involving the gastrointestinal system. : No deficits noted. No signs and/or symptoms were reported regarding the genitourinary system. Derm: No deficits noted. No signs and/or symptoms reported regarding the dermatologic system. Skin is intact, is healthy with good turgor, Skin is dry. Musculoskeletal: No deficits noted. No signs and/or symptoms reported regarding the musculoskeletal system. Circulation, motion, and sensation intact. Range of motion: intact in all extremities. Historical: - Allergies: 20:47 Iodine; lg3 20:47 Sulfa (Sulfonamide Antibiotics); lg3 - Home Meds: 20:47 losartan 50 mg oral tab 1 tab once daily [Active]; celecoxib 200 mg Oral cap 1 cap 2 lg3 times per day [Active]; meloxicam 7.5 mg oral tab 1 tab twice a day [Active]; alprazolam 0.25 mg Oral tab 1 tab daily [Active]; escitalopram oxalate Oral [Active]; - PMHx: 20:47 Anxiety; Hypertension; lg3 - PSHx: 20:47 left hand; back; hysterectomy; bilateral knee; lg3 - Immunization history:: Adult Immunizations up to date, Client reports receiving the 2nd dose of the Covid vaccine, pfizer X2. - Social history:: Smoking status: Patient denies any tobacco usage or history of. Patient uses alcohol, on a daily basis. couple of glasses of wine every night. Screenin:39 Abuse screen: Denies threats or abuse. Denies injuries from another. Nutritional lp1 screening: No deficits noted. Tuberculosis screening: No symptoms or risk factors identified. Fall Risk None identified. Assessment: 21:30 General: Appears in no apparent distress. Behavior is appropriate for age. Pain: lp1 Complains of pain in head Pain currently is 4 out of 10 on a pain scale. Quality of pain is described as aching. Neuro: Level of Consciousness is awake, alert, obeys commands, Oriented to person, place, time, situation, Reports headache frontal area. Cardiovascular: Patient's skin is warm and dry. Rhythm is regular. Respiratory: Respiratory effort is even, unlabored. GI: No signs and/or symptoms were reported involving the gastrointestinal system. : No signs and/or symptoms were reported regarding the genitourinary system. EENT: No signs and/or symptoms were reported regarding the EENT system. Derm: Skin is pink, warm \T\ dry. Musculoskeletal: No deficits noted. 22:38 Reassessment: Patient appears in no apparent distress at this time. Patient resting, lp1 eyes closed, respirations even, unlabored; appears in no discomfort. 23:40 Reassessment: Patient ambulated to bathroom independently at this time. lp1 09/17 00:29 Reassessment: Patient is alert, oriented x 3, equal unlabored respirations, skin lp1 warm/dry/pink. patient aware of pending discharge, monitoring after Clonidine PO administered Patient states feeling better. 01:16 Reassessment: Patient appears in no apparent distress at this time. Patient is alert, lp1 oriented x 3, equal unlabored respirations, skin warm/dry/pink. Patient states feeling better. Reassessment: Demonstrates understanding for follow up care with PCP. Neuro: Gait is steady. Vital Signs: 09/16 20:40 BP 193 / 93; Pulse 78; Resp 16 S; Temp 98.2(O); Pulse Ox 98% on R/A; Weight 68.04 kg lg3 (R); Height 5 ft. 4 in. (162.56 cm) (R); Pain 9/10; 20:53 BP 166 / 94; Pulse 76; Pulse Ox 99% on R/A; lg3 21:36 BP 174 / 88; Pulse 68; Resp 12; Pulse Ox 96% on R/A; Pain 4/10; lp1 22:12 BP 183 / 71; Pulse 66; Resp 16; Pulse Ox 99% on R/A; lp1 22:36 BP 169 / 75; Pulse 61; Resp 17; Pulse Ox 95% on R/A; lp1 09/17 00:00 BP 183 / 86; Pulse 65; Resp 19; Pulse Ox 96% on R/A; lp1 00:34 BP 180 / 78; Pulse 62; Resp 18; Pulse Ox 96% on R/A; lp1 01:00 BP 164 / 79; Pulse 62; Resp 17; Pulse Ox 96% on R/A; lp1 01:17 BP 157 / 77; Pulse 63; Resp 18; Pulse Ox 98% on R/A; lp1 09/16 20:40 Body Mass Index 25.75 (68.04 kg, 162.56 cm) lg3 ED Course: 09/16 20:16 Patient arrived in ED. mr 20:16 Master Holloway MD is Private Physician. mr 20:36 Luis Aguilar MD is Attending Physician. kdr 20:47 Triage completed. lg3 20:47 Arm band placed on right wrist. lg3 21:07 Maylin Jones, RN is Primary Nurse. lp1 21:10 XRAY Chest (1 view) In Process Unspecified. EDMS 21:34 Patient has correct armband on for positive identification. Placed in gown. Bed in low lp1 position. Call light in reach. secured entrance monitor on. Pulse ox on. NIBP on. 21:34 Missed attempt(s): 20 gauge in right forearm. Inserted saline lock: 22 gauge in right lp1 forearm, using aseptic technique. Blood collected. 23:56 Master Holloway MD is Referral Physician. kdr 09/17 00:31 No provider procedures requiring assistance completed. lp1 01:16 IV discontinued, No redness/swelling at site. Pressure dressing applied. lp1 Administered Medications: 09/16 22:07 Drug: Lopressor (metoprolol) 5 mg Route: IVP; Site: right forearm; lp1 23:00 Follow up: Response: Blood pressure is lowered lp1 09/17 00:26 Drug: cloNIDine 0.1 mg Route: PO; lp1 01:18 Follow up: Response: Blood pressure is lowered lp1 Outcome: 09/16 23:57 Discharge ordered by . kdr 09/17 01:17 Discharged to home ambulatory. lp1 Condition: good Discharge instructions given to patient, Instructed on discharge instructions, follow up and referral plans. medication usage, Demonstrated understanding of instructions, follow-up care, medications, Prescriptions given X 1. 01:19 Patient left the ED. lp1 Signatures: Dispatcher [employer] EDMS Luis Aguilar MD MD [facility] Mackenzie Barger mr Maylin Jones, SAVANAH RN lp1 Dinah Yadav RN RN lg3
--- NOTE | 2021-09-16 23:57 | EDPHYS ---
Physician Documentation [facility] Name: Mechelle Sher Age: 76 yrs Sex: Female : 1945 Arrival Date: 09/16/2021 Time: 20:16 Bed 3 Private MD: Master Holloway ED Physician Luis Aguilar HPI: 09/17 05:21 This 76 yrs old Female presents to ER via Ambulatory with complaints of High Blood kdr Pressure. 05:17 Patient states that she started feeling flushed and not feeling well around 5:30 PM kdr yesterday. She took her blood pressure and it was noted to be 163/98. At that point she took a nap and when she awoke later she was not feeling well so she rechecked her blood pressure couple more times. At about 8:00 it was 199/7097 and 188/102. At that point she decided to come to the ER to be evaluated. He also complained of some pain in her left shoulder and left arm. This is been ongoing for nearly a year. She had an MRI yesterday and will have a follow-up appointment tomorrow with regard to this issue. Historical: - Allergies: 09/16 20:47 Iodine; lg3 20:47 Sulfa (Sulfonamide Antibiotics); lg3 - Home Meds: 20:47 losartan 50 mg oral tab 1 tab once daily [Active]; celecoxib 200 mg Oral cap 1 cap 2 lg3 times per day [Active]; meloxicam 7.5 mg oral tab 1 tab twice a day [Active]; alprazolam 0.25 mg Oral tab 1 tab daily [Active]; escitalopram oxalate Oral [Active]; - PMHx: 20:47 Anxiety; Hypertension; lg3 - PSHx: 20:47 left hand; back; hysterectomy; bilateral knee; lg3 - Immunization history:: Adult Immunizations up to date, Client reports receiving the 2nd dose of the Covid vaccine, pfizer X2. - Social history:: Smoking status: Patient denies any tobacco usage or history of. Patient uses alcohol, on a daily basis. couple of glasses of wine every night. ROS: 09/17 05:17 Constitutional: Negative for fever, chills, and weight loss, Eyes: Negative for injury, kdr pain, redness, and discharge, Neck: Negative for injury, pain, and swelling, Cardiovascular: Negative for chest pain, palpitations, and edema, Respiratory: Negative for shortness of breath, cough, wheezing, and pleuritic chest pain, Abdomen/GI: Negative for abdominal pain, nausea, vomiting, diarrhea, and constipation, Back: Negative for injury and pain, MS/Extremity: Negative for injury and deformity, Skin: Negative for injury, rash, and discoloration, Neuro: Negative for headache, weakness, numbness, tingling, and seizure activity. Psych: Negative for depression, anxiety, suicide ideation, homicidal ideation, and hallucinations, Allergy/Immunology: Negative for hives, rash, and allergies, Endocrine: Negative for neck swelling, polydipsia, polyuria, polyphagia, and marked weight changes, Hematologic/Lymphatic: Negative for swollen nodes, abnormal bleeding, and unusual bruising. Cardiovascular: Positive for Exam: 09/16 21:38 ECG was reviewed by the Attending Physician. kdr 09/17 05:21 Constitutional: This is a well developed, well nourished patient who is awake, alert, kdr and in no acute distress. Head/Face: Normocephalic, atraumatic. Eyes: Pupils equal round and reactive to light, extra-ocular motions intact. Lids and lashes normal. Conjunctiva and sclera are non-icteric and not injected. Cornea within normal limits. Periorbital areas with no swelling, redness, or edema. Neck: Trachea midline, no thyromegaly or masses palpated, and no cervical lymphadenopathy. Supple, full range of motion without nuchal rigidity, or vertebral point tenderness. No Meningismus. Chest/axilla: Normal chest wall appearance and motion. Nontender with no deformity. No lesions are appreciated. Cardiovascular: Regular rate and rhythm with a normal S1 and S2. No gallops, murmurs, or rubs. Normal PMI, no JVD. No pulse deficits. Respiratory: Lungs have equal breath sounds bilaterally, clear to auscultation and percussion. No rales, rhonchi or wheezes noted. No increased work of breathing, no retractions or nasal flaring. Abdomen/GI: Soft, non-tender, with normal bowel sounds. No distension or tympany. No guarding or rebound. No evidence of tenderness throughout. Back: No spinal tenderness. No costovertebral tenderness. Full range of motion. Skin: Warm, dry with normal turgor. Normal color with no rashes, no lesions, and no evidence of cellulitis. MS/ Extremity: Pulses equal, no cyanosis. Neurovascular intact. Full, normal range of motion. Neuro: Awake and alert, GCS 15, oriented to person, place, time, and situation. Cranial nerves II-XII grossly intact. Motor strength 5/5 in all extremities. Sensory grossly intact. Cerebellar exam normal. Normal gait. Psych: Awake, alert, with orientation to person, place and time. Behavior, mood, and affect are within normal limits. Vital Signs: 09/16 20:40 BP 193 / 93; Pulse 78; Resp 16 S; Temp 98.2(O); Pulse Ox 98% on R/A; Weight 68.04 kg lg3 (R); Height 5 ft. 4 in. (162.56 cm) (R); Pain 9/10; 20:53 BP 166 / 94; Pulse 76; Pulse Ox 99% on R/A; lg3 21:36 BP 174 / 88; Pulse 68; Resp 12; Pulse Ox 96% on R/A; Pain 4/10; lp1 22:12 BP 183 / 71; Pulse 66; Resp 16; Pulse Ox 99% on R/A; lp1 22:36 BP 169 / 75; Pulse 61; Resp 17; Pulse Ox 95% on R/A; lp1 09/17 00:00 BP 183 / 86; Pulse 65; Resp 19; Pulse Ox 96% on R/A; lp1 00:34 BP 180 / 78; Pulse 62; Resp 18; Pulse Ox 96% on R/A; lp1 01:00 BP 164 / 79; Pulse 62; Resp 17; Pulse Ox 96% on R/A; lp1 01:17 BP 157 / 77; Pulse 63; Resp 18; Pulse Ox 98% on R/A; lp1 09/16 20:40 Body Mass Index 25.75 (68.04 kg, 162.56 cm) lg3 MDM: 09/16 23:57 Patient medically screened. kdr 09/17 05:20 Data reviewed: vital signs, nurses notes, lab test result(s), radiologic studies. kdr Counseling: I had a detailed discussion with the patient and/or guardian regarding: the historical points, exam findings, and any diagnostic results supporting the discharge/admit diagnosis, lab results, radiology results, the need for outpatient follow up. ED course: Patient improved with interventions given. Appreciated the care provided and the plan for discharge and follow-up. 09/16 20:57 Order name: Basic Metabolic Panel; Complete Time: 23:54 [facility] 09/16 20:57 Order name: CBC with Diff; Complete Time: 23:54 [facility] 09/16 20:57 Order name: Troponin HS; Complete Time: 23:54 [facility] 09/16 20:57 Order name: XRAY Chest (1 view); Complete Time: 23:54 [facility] 09/16 20:57 Order name: ETOH Level; Complete Time: 23:54 [facility] 09/16 20:57 Order name: Cardiac monitoring; Complete Time: 21:34 [facility] 09/16 20:57 Order name: EKG - Nurse/Tech; Complete Time: 21:36 [facility] 09/16 20:57 Order name: IV Saline Lock; Complete Time: 21:36 [facility] 09/16 20:57 Order name: Labs collected and sent; Complete Time: 21:36 [facility] 09/16 20:57 Order name: O2 Per Protocol; Complete Time: 21:36 [facility] 09/16 20:57 Order name: O2 Sat Monitoring; Complete Time: 21:36 kdr EC/24 21:38 Rate is 70 beats/min. Rhythm is regular, Sinus Rhythm with No ectopy. QRS [place] is kdr Normal. GA interval is normal. QRS interval is normal. QT interval is normal. Clinical impression: NSR w/ Non-specific ST/T Changes. Administered Medications: 22:07 Drug: Lopressor (metoprolol) 5 mg Route: IVP; Site: right forearm; lp1 23:00 Follow up: Response: Blood pressure is lowered lp1 09/17 00:26 Drug: cloNIDine 0.1 mg Route: PO; lp1 01:18 Follow up: Response: Blood pressure is lowered lp1 Disposition Summary: 09/16/21 23:57 Discharge Ordered Location: Home kdr Problem: an ongoing problem kdr Symptoms: have improved kdr Condition: Stable kdr Diagnosis - Hypertensive heart disease without heart failure kdr - Anxiety disorder, unspecified kdr Followup: kdr - With: Master Holloway MD - When: 1 - 2 days - Reason: If symptoms return, Further diagnostic work-up, Recheck today's complaints, Continuance of care, Re-evaluation by your physician Discharge Instructions: - Discharge Summary Sheet kdr - Hypertension, Adult, [id number] kdr - Generalized Anxiety Disorder, Adult kdr Forms: - Medication Reconciliation Form kdr - Thank You Letter kdr Prescriptions: - Xanax 0.5 mg Oral Tablet - take 1 tablet by ORAL route every 8 hours As needed; 10 tablet; Refills: 0, kdr Product Selection Permitted Signatures: Dispatcher [employer] Luis Ko MD MD kdr Maylin Jones RN RN lp1 Dinah Yadav RN RN lg3
[2021-09-17] MEDS ORDERED: cloNIDine HCL 0.1 MG TAB ONE (00:29)
[2021-09-17 01:31] VITALS: TEMP 98.2
[2021-09-17 01:43] VITALS: BP 157/77; O2SAT 98
--- NOTE | 2021-09-18 09:36 | EKG ---
Test Date: 2021-09-16 Test Time: 21:19:42 Environmental Services Supervisor: CRYSTAL MEASUREMENT RESULTS: Intervals: Rate: 70 SC: 158 QRSD: 82 QT: 388 QTc: 419 [place]: P: 69 SC: 158 QRS: 49 T: 45 INTERPRETIVE STATEMENTS: Normal sinus rhythm Nonspecific T wave abnormality Abnormal ECG Compared to ECG 03/29/2021 15:53:25 T-wave abnormality now present ST (T wave) deviation no longer present Electronically Signed On 09-18-21 09:32:07 CDT by Brayan Mcclelland
== END 2021-09-17 01:19 | disposition home or self-care (01) ==
LOC: ER 20:13
DX: I11.9 Hypertensive heart disease without heart failure (principal); F41.9 Anxiety disorder, unspecified; Z88.2 Allergy status to sulfonamides; Z91.09 Other allergy status, other than to drugs and biological substances
CPT/HCPCS: 36415; 71045; 80048; 80320; 84484; 85025; 93005; 96374; 99284

== ENCOUNTER 2022-12-09 00:16 | Emergency (ER) | payer OTHER ==
--- OUTSIDE RECORDS SUMMARY | 2022-12-09 00:23 | XMS REPORT | Continuity of Care Document ---
:1945 Author Organization [facility] t Address [address] [place] [address] Care Team Providers Name Role Phone NIESHA LOPEZ' Attending Clinician Unavailable RICHY ROGERS Attending Clinician Unavailable Payers Payer Name Policy Type Policy Number Effective Date Expiration Date S ource MEDICARE A B [id number] 2009 00:00:00 [employer] PPO OPEN [facility] [id number] 2013 NAP 00:00:00 Problems Condition Condition Condition Status Onset Resolution Last Treating Co mments Source Name Details Category Date Date Treatment Clinician Date Hypertensi Hypertensi Disease Active [facility] ve urgency ve urgency 1-14 [facility] 00 Center Other Other Disease Active [facility] chest pain chest pain 1-14 [facility] k[facility] 00:00: Medical 00 [place] 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 1-14 Briana kes emia emia 00:00: Medical 00 Center Allergies, Adverse Reactions, Alerts Allergy Allergy Status Severity Reaction(s) Onset Inactive Treating Comm ents Source Name Type Date Date Clinician Iodine Propensi Active [facility] Iodide adverse 00:00: Medical Containi reaction 00 Center ng s Products Sulfur Propensi Active Rash [facility] adverse 00:00: Medical reaction 00 Center s IODINE Allergy Active [facility] IODIDE 00:00: Medical CONTAINI 00 Center NG PRODUCTS SULFUR Allergy Active Low Rash [facility] Family History Family Member Diagnosis Comments Start Date Stop Date Source Natural sister Hypertension [facility] Social History Social Habit Start Date Stop Date Quantity Comments Source History of Current smoker [facility] Alcohol intake 2020-09-21 2020-09-21 [facility] (finding) Tobacco use and 2020-06-08 2020-06-08 Smok[address] [facility] exposure 00:00[facility]00 00:00:00 non-user [facility] Center Alcohol Comment 2020-06-08 2020-06-[address] Briana kes 00:00:00 00:00:00 [facility] Sex Assigned At [address] [facility] Briana kes 00:00:00 00:00:00 [facility] Smoking Status Start Date Stop Date Source Ex-smoker 2020-06-08 00:00:00 2020-06-08 00:00:00 [facility] Medications Ordered Filled Start Stop Current Ordering Indication Dosage Frequency Signature Comments Components Source Medication Medication Date Date Medication? Clinician (SIG) Name Name aspirin 81 Yes 81mg QD Take [address] [facility] chewable 4-29 by mouth Luke s tablet 11:00: daily. [address] potassium Yes Take by [facility] 99 mg Tab 4-29 mouth. [facility] 11:00: [address] Vital Signs Vital Name Observation Time Observation Value Comments Source HEIGHT 2020-09-21 10:58:00 160 cm WEIGHT 2020-09-21 10:58:00 69.854 kg HEIGHT 2020-06-08 13:13:00 160 cm WEIGHT 2020-06-08 13:13:00 72.122 kg Procedures This patient has no known procedures. Plan of Care Planned Activity Planned Date Details Comments Source Future Scheduled 2023-01-24 Influenza Vaccine (#1) [facility] 00:00:00 [code = Influenza Medical nter Vaccine (#1)] Future Scheduled 2022-05-[address] [facility] Test 00:00:00 (12+) [code = Medical Center DEPRESSION SCREENING (12+)] Future Scheduled 2022-05-26 FALLS RISK SCREENING [facility] Test 00:00:00 [code = FALLS RISK Medical C enter SCREENING] Future Scheduled 2021-09-[address] [facility] Test 00:00:00 Counseling and Medical Cente r Screening (12+) [code = Tobacco Cessation Counseling and Screening (12+)] Future Scheduled 2020-10-07 COVID-19 VACCINE (3 - [facility] 00:00:00 Booster for Pfizer Medical C enter series) [code = COVID-19 VACCINE (3 - Booster for Pfizer series)] Future Scheduled 2010-07-[address] [facility] Test 00:00:00 WELLNESS (YEAR 2 or Medical Center FIRST YEAR if no IPPE) [code = MEDICARE ANNUAL WELLNESS (YEAR 2 or FIRST YEAR if no IPPE)] Future Scheduled 2009 PNEUMOCOCCAL 65+ YRS [facility] Test 00:00:00 (1 - PCV) [code = Medical Ce nter PNEUMOCOCCAL 65+ YRS (1 - PCV)] Future Scheduled 1994 SHINGLES VACCINES ([address] [facility] Test 00:00:00 of 2) [code = SHINGLES Medic al Center VACCINES (1 of 2)] Future Scheduled 1963-08-25 DTAP/TDAP/TD VACCINES [facility] Test 00:00:00 (1 - Tdap) [code = Medical C enter DTAP/TDAP/TD VACCINES (1 - Tdap)] Future Scheduled 1962 HEPATITIS C SCREENING [facility] 00:00:00 [code = HEPATITIS C Medical Center SCREENING] Future Scheduled 1945 DXA SCAN [code = DXA [facility] Test 00:00:00 SCAN] Medical Center Encounters Start End Encounter Admission Attending Care Care Encounter Source Date/Time Date/Time Type Type Clinicians Facility Department ID 2021-06-21 2021-06-21 Outpatient [facility] [id number] 00:[facility]00 00[facility]00:00 [facility] 2020-09-21 2020-09-21 Outpatient [facility] [id number] 00:00:00 00:00:00 [facility] 2020-06-08 2020-06-08 Outpatient SUE, [facility] [id number] 00:00[facility]00 00:00:00 [facility] 2019-08-10 2019-08-10 Outpatient [facility] [id number] 00:00:00 00:00:00 [id number] [facility] Results This patient has no known results.
[2022-12-09] MEDS ORDERED: KETOROLAC 30 MG/ML INJ ONE (00:49)
[2022-12-09] MEDS ORDERED: ACETAMINOPHEN 325 MG TABLET ONE (00:49)
--- NOTE | 2022-12-09 02:02 | ER ---
Nurse's Notes [facility] Name: Mechelle Sher Age: 77 yrs Sex: Female : 1945 Arrival Date: 12/09/2022 Time: 00:16 Bed 6 Private MD: Diagnosis: Pain in left knee Presentation: 12/09 00:21 Chief complaint: Patient states: "I am having a lot of pain from knee replacement as6 surgery back in October". Coronavirus screen: At this time, the client does not indicate any symptoms associated with coronavirus-19. Ebola Screen: No symptoms or risks identified at this time. Initial Sepsis Screen: Does the patient meet any 2 criteria? No. Patient's initial sepsis screen is negative. Does the patient have a suspected source of infection? No. Patient's initial sepsis screen is negative. Risk Assessment: Do you want to hurt yourself or someone else? Patient reports no desire to harm self or others. Onset of symptoms was December 09, 2022. 00:21 Acuity: DARRIUS 4 as6 00:21 Method Of Arrival: Ambulatory as6 Historical: - Allergies: 00:27 Iodine; as6 00:27 Sulfa (Sulfonamide Antibiotics); as6 - PMHx: 00:27 Anxiety; Hypertension; as6 - PSHx: 00:27 back; bilateral knee; hysterectomy; left hand; as6 - Immunization history:: Client reports receiving the 2nd dose of the Covid vaccine, moderna. - Social history:: Smoking status: Patient denies any tobacco usage or history of. Screenin:57 [facility] ED Fall Risk Assessment (Adult) History of falling in the last 3 months, rv including since admission No falls in past 3 months (0 pts) Confusion or Disorientation No (0 pts) Intoxicated or Sedated No (0 pts) Impaired Gait No (0 pts) Mobility Assist Device Used No (0 pt) Altered Elimination No (0 pt) Score/Fall Risk Level 0 - 2 = Low Risk Oriented to surroundings, Maintained a safe environment, Educated pt \\T\\ family on fall prevention, incl call for assistance when getting out of bed, Assessed \\T\\ reinforced patient's understanding of fall precautions, Provided non-skid footwear, Hourly rounding (assess needs \\T\\ fall precautionary measures) done, Used ambulatory aids as needed (educated on \\T\\ assisted with), Used gait belt as appropriate. Abuse screen: Denies threats or abuse. Denies injuries from another. Nutritional screening: No deficits noted. Tuberculosis screening: No symptoms or risk factors identified. Assessment: 00:56 General: Appears uncomfortable, Behavior is calm, cooperative. Pain: Complains of pain rv in left knee. Neuro: Level of Consciousness is awake, alert, obeys commands, Oriented to person, place, time, situation. Cardiovascular: Capillary refill < 3 seconds Patient's skin is warm and dry. Respiratory: Airway is patent Respiratory effort is even, unlabored. Musculoskeletal: Range of motion: intact in all extremities. Vital Signs: 00:21 BP 138 / 77; Pulse 64; Resp 18 S; Temp 97.9(TE); Pulse Ox 99% on R/A; Weight 61.23 kg as6 (R); Height 5 ft. 4 in. (R); Pain 6/10; 02:39 BP 131 / 81; Pulse 78; Resp 18 S; Pulse Ox 97% on R/A; as6 00:21 Body Mass Index 23.17 (61.23 kg, 162.56 cm) as6 00:21 Pain Scale: Adult as6 ED Course: 00:20 Patient arrived in ED. ag3 00:21 Bebeto Renteria PA is PHCP. cp 00:21 Catherine Gates MD is Attending Physician. cp 00:27 Triage completed. as6 00:27 Arm band placed on. as6 00:49 Anthony House, SAVANAH is Primary Nurse. rv 00:57 Patient has correct armband on for positive identification. Bed in low position. Call rv light in reach. Side rails up X 1. Provided Education on: rehab. 00:57 No provider procedures requiring assistance completed. Patient did not have IV access rv during this emergency room visit. 00:58 Knee Left 3 View In Process Unspecified. EDMS Administered Medications: 00:37 CANCELLED (Physician Discretion): Ketorolac IM 15 mg IM once cp 00:49 Drug: Ketorolac IM 30 mg Route: IM; Site: right deltoid; rv 02:39 Follow up: Response: No adverse reaction as6 00:50 Drug: Acetaminophen PO 650 mg Route: PO; rv 02:39 Follow up: Response: No adverse reaction as6 Medication: 00:57 VIS not applicable for this client. rv Outcome: 02:01 Discharge ordered by . cp 02:39 Discharged to home ambulatory. as6 02:39 Condition: stable 02:39 Discharge instructions given to patient, Instructed on discharge instructions, follow up and referral plans. medication usage, Demonstrated understanding of instructions, follow-up care, medications, Prescriptions given X 1. 02:39 Patient left the ED. as6 Signatures: Dispatcher [employer] EDMS Bebeto Renteria PA PA cp Vicente, Ronaldo, RN RN Rach Sams Andriy Conroy RN RN as6
--- NOTE | 2022-12-09 02:02 | EDPHYS ---
Physician Documentation [facility] Name: Mechelle Sher Age: 77 yrs Sex: Female : 1945 Arrival Date: 12/09/2022 Time: 00:16 Bed 6 Private MD: ED Physician Catherine Gates HPI: 12/09 00:38 This 77 yrs old Female presents to ER via Ambulatory with complaints of Knee Pain. cp 00:38 The patient presents with pain, that is acute. cp 00:38 The complaints affect the left knee. Context: since having knee replacement surgery in October 2022. Associated signs and symptoms: Pertinent positives: swelling, Pertinent negatives calf tenderness, fever. Patient reports she has not been prescribed pain medication for past several weeks. Historical: - Allergies: 00:27 Iodine; as6 00:27 Sulfa (Sulfonamide Antibiotics); as6 - PMHx: 00:27 Anxiety; Hypertension; as6 - PSHx: 00:27 back; bilateral knee; hysterectomy; left hand; as6 - Immunization history:: Client reports receiving the 2nd dose of the Covid vaccine, moderna. - Social history:: Smoking status: Patient denies any tobacco usage or history of. ROS: 00:45 MS/extremity: Positive for pain, tenderness, of the left knee, Negative for decreased cp range of motion, injury. 00:45 Constitutional: Negative for body aches, chills, fever, poor PO intake. cp 00:45 Cardiovascular: Negative for chest pain, palpitations. 00:45 Respiratory: Negative for cough, shortness of breath, wheezing. 00:45 Abdomen/GI: Negative for abdominal pain, vomiting, diarrhea, constipation. Exam: 00:50 Constitutional: The patient appears in no acute distress, alert, awake, non-toxic, well cp developed, well nourished, smells of alcohol. 00:50 Head/Face: Normocephalic, atraumatic. cp 00:50 Musculoskeletal/extremity: Extremities: grossly normal except: noted in the left knee: cp pain, tenderness, mild swelling, ROM: limited passive range of motion due to pain, in the left knee. 00:50 Cardiovascular: Rate: normal. cp 00:50 Respiratory: the patient does not display signs of respiratory distress. 00:50 Abdomen/GI: Inspection: abdomen appears normal. Vital Signs: 00:21 BP 138 / 77; Pulse 64; Resp 18 S; Temp 97.9(TE); Pulse Ox 99% on R/A; Weight 61.23 kg as6 (R); Height 5 ft. 4 in. (R); Pain 6/10; 02:39 BP 131 / 81; Pulse 78; Resp 18 S; Pulse Ox 97% on R/A; as6 00:21 Body Mass Index 23.17 (61.23 kg, 162.56 cm) as6 00:21 Pain Scale: Adult as6 MDM: 00:28 Patient medically screened. cp 02:00 Data reviewed: vital signs, nurses notes, radiologic studies, plain films. cp 12/09 00:47 Order name: Knee Left 3 View EDMS Administered Medications: 00:37 CANCELLED (Physician Discretion): Ketorolac IM 15 mg IM once cp 00:49 Drug: Ketorolac IM 30 mg Route: IM; Site: right deltoid; rv 02:39 Follow up: Response: No adverse reaction as6 00:50 Drug: Acetaminophen PO 650 mg Route: PO; rv 02:39 Follow up: Response: No adverse reaction as6 Disposition Summary: 12/09/22 02:01 Discharge Ordered Location: Home cp Problem: an ongoing problem cp Symptoms: have improved cp Condition: Stable cp Diagnosis - Pain in left knee cp Followup: cp - With: Private Physician - When: 2 - 3 days - Reason: Recheck today's complaints Discharge Instructions: - Discharge Summary Sheet cp - Elastic Bandage and RICE Therapy cp - Joint Pain cp Forms: - Medication Reconciliation Form cp - Thank You Letter cp - Antibiotic Education cp - Prescription Opioid Use cp - Patient Portal Instructions cp Prescriptions: - Mobic 7.5 mg Oral Tablet - take 1 tablet by ORAL route once daily take with food; 20 tablet; Refills: 0, cp Product Selection Permitted Signatures: Dispatcher [employer] EDMS Bebeto Renteria PA PA cp Anthony House RN RN rv Andriy Nelson RN RN as6 Corrections: (The following items were deleted from the chart) 00:37 00:37 Ketorolac IM 15 mg IM once ordered. cp cp 02:28 01:22 Knee Left 3 View+[id number] ordered. EDMS EDMS
--- NOTE | 2022-12-09 11:29 | RAD REPORT ---
EXAM DESCRIPTION: XR Left Knee, 3 Views CLINICAL HISTORY: The patient is 77 years old and is Female; PAIN [facility] MAIN TECHNIQUE: Three views of the left knee. COMPARISON: No relevant prior studies available. FINDINGS/IMPRESSION: BONES/JOINTS: Total left knee arthroplasty, without evidence of loosening or hardware failure. Diffusely sclerotic and diminutive appearance of the patella. No acute fracture. No dislocation. SOFT TISSUES: Prepatellar and medial left knee soft tissue swelling, suggesting contusion versus bu rsitis. Electronically signed by: Kranthi Suresh MD 12/09/2022 1:22 AM CDT Due to temporary technical issues with the PACS/Fluency reporting system, reports are being signed by the in house radiologist without review as a courtesy to ensure prompt reporting. The interpreting r adiologist is fully responsible for the content of the report.
== END 2022-12-09 02:39 | disposition home or self-care (01) ==
LOC: ER 00:16
DX: M25.562 Pain in left knee (principal); I10 Essential (primary) hypertension; F41.9 Anxiety disorder, unspecified; Z88.2 Allergy status to sulfonamides; Z91.041 Radiographic dye allergy status
CPT/HCPCS: 96372; 99284

== ENCOUNTER 2023-04-22 17:13 | Emergency (ER) | payer OTHER ==
--- OUTSIDE RECORDS SUMMARY | 2023-04-22 17:16 | XMS REPORT | Continuity of Care Document ---
:1945 Author Organization [facility] t Address [address] [place] [address] Care Team Providers Name Role Phone NIESHA LOPEZ' Attending Clinician Unavailable RICHY ROGERS Attending Clinician Unavailable Payers Payer Name Policy Type Policy Number Effective Date Expiration Date S ource MEDICARE A B [id number] 2009 00:00:00 [employer] PPO OPEN [facility] [id number] 2013 NAP 00:00:00 Problems Condition Condition Condition Status Onset Resolution Last Treating Co mments Source Name Details Category Date Date Treatment Clinician Date Hypertensi Hypertensi Disease Active [facility] ve urgency ve urgency 1-14 [facility]ana [facility]: [facility] Center Other Other Disease Active [facility] chest pain chest pain 1-14 Briana kes 00:00: Medical [facility] [place] Mixed Mixed Disease Active [facility] hyperlipid [...] NG PRODUCTS SULFUR Allergy Active Low Rash [facility] 06[facility]08 [facility] Family History Family Member Diagnosis Comments Start Date Stop Date Source Natural sister Hypertension [facility] Social History Social Habit Start Date Stop Date Quantity Comments Source History of tobacco Current sm[facility] use [facility] [place] Sexual orientation [facility] Alcohol intake 2020-09-21 2020-09-21 [facility] (finding[facility] Tobacco use and 2020-06-08 2020-06-08 Smokeless tobacco [facility] exposure 00:00:00 00:00:00 non-user [facility] Alcohol Comment 2020-06-08 2020-06-08 social [facility] kes 00:00:00 00:00:00 [facility] Sex Ass[birth year] At [birth year] [facility] 00:00:00 00:00:00 [facility] Smoking Status Start Date Stop Date Source Ex-smoker 2020-06-08 00:00:00 2020-06-08 00:00:00 [facility] Medications Ordered Filled Start Stop Current Ordering Indication Dosage Frequency Signature Comments Components Source Medication Medication Date Date Medication? Clinician (SIG) Name Name aspirin 81 Yes 81mg QD Take [address] [facility] chewable 4-29 by mouth [facility] tablet 11:00: daily. [address] potassium Yes Take by [facility] Tab 4-29 [facility]. [facility] 11:[facility]: [address] aspirin 81 0 Yes 81mg QD Take [address] [facility] chewable 4-29 by mouth [facility] tablet 11:00: daily. [address] potassium 0 Yes Take by [facility] Tab 4-29 mouth. [facility] 11:00: [address] Vital Signs Vital Name Observation Time [...] [facility] 00:00:00 [code = Influenza Medical Ce nter Vaccine (#1)] Future Scheduled 2023-01-24 Influenza Vaccine (#1) [facility] 00:00:00 [code = Influenza Medical Ce nter Vaccine (#1)] Future Scheduled 2022-05-[address] [facility] Test 00:00:00 (12+) [code = Medical Center DEPRESSION SCREENING (12+)] Future Scheduled 2022-05-26 FALLS RISK SCREENING [facility] Test 00:00:00 [code = FALLS RISK Medical C enter SCREENING] Future Scheduled 2022-05-[address] [facility] Test 00:00:00 (12+) [code = [facility] DEPRESSION SCREENING (12+)] Future Scheduled 2022-05-26 F[address]S RISK SCREENING [facility] 00:00:00 [code = FALLS RISK Medical C enter SCREENING] Future Scheduled 2021-09-[address] [facility] Test 00:00:00 Counseling and Medical Cente r Screening (12+) [code = Tobacco Cessation Counseling and Screening (12+)] Future Scheduled 2021-09-[address] [facility] 00:00:00 [facility]ing [facility] Medical Cente r Screening (12+) [code = Tobacco Cessation Counseling and Screening (12+)] Future Scheduled 2020-10-07 COVID-19 VACCINE (3 - [facility] Test 00:00:00 Booster for Pfizer Medical C enter series) [code = COVID-19 VACCINE (3 - Booster for Pfizer series)] Future Scheduled 2020-10-07 COVID-19 VACCINE (3 - [facility] 00:00:00 Pfizer series) [code = [facility] COVID-19 VACCINE (3 - Pfizer series)] Future Scheduled 2010-07-[address] [facility] 00:00:00 WELLNESS (YEAR 2 or Medical Center FIRST YEAR if no IPPE) [code = MEDICARE ANNUAL WELLNESS (YEAR 2 or FIRST YEAR if no IPPE)] Future Scheduled 2010-07-[address] [facility] [facility] 00:00:00 WELLNESS (YEAR 2 or Medical Center FIRST YEAR if no IPPE) [code = MEDICARE ANNUAL WELLNESS (YEAR 2 or FIRST YEAR if no IPPE)] Future Scheduled 2009 PNEUMOCOCCAL 65+ YRS [facility] Test 00:00:00 (1 - PCV) [code = Medical Ce nter PNEUMOCOCCAL 65+ YRS (1 - PCV)] Future Scheduled 2009 PNEUMOCOCCAL 65+ YRS [facility] Test 00:00:00 (1 - PCV) [code = Medical Ce nter PNEUMOCOCCAL 65+ YRS (1 - PCV)] Future Scheduled 1994 SHINGLES VACCINES ([address] [facility] Test 00:00:00 of 2) [code = SHINGLES Medic al Center VACCINES (1 of 2)] Future Scheduled 1994 SHINGLES VACCINES ([address] [facility] 00:00:00 of 2) [code = SHINGLES Medic al Center VACCINES (1 of 2)] Future Scheduled 1963-08-25 DTAP/TDAP/TD VACCINES [facility] 00:00:00 (1 - Tdap) [code = Medical C enter DTAP/TDAP/TD VACCINES (1 - Tdap)] Future Scheduled 1963-08-25 DTAP/TDAP/TD VACCINES [facility] 00:00:00 (1 - Tdap) [code = Medical C enter DTAP/TDAP/TD VACCINES (1 - Tdap)] Future Scheduled 1962 HEPATITIS C SCREENING [facility] 00:00:00 [code = HEPATITIS C Medical Center SCREENING] Future Scheduled 1962 HEPATITIS C [facility]CRE[facility]ING [facility] 00:00:00 [code = HEPATITIS C Medical Center SCREENING] Future Scheduled 1945 DXA SCAN [code = DXA [facility] Test 00:00:00 SCAN] Medical Center Future Scheduled 1945 DXA SCAN [code = DXA [facility] Test 00:00:00 SCAN] [facility] Encounters Start End Encounter Admission Attending Care Care Encounter Source Date/Time Date/Time Type Type Clinicians Facility Department ID 2021-06-21 2021-06-21 [id number] 00[facility]00 00[facility]00[facility]00 [facility] 2020-09-21 2020-09-21 [id number] 00:00:00 00:00:00 IRLANDAGIOVANAARMIN [facility] 2020-06-08 2020-06-08 Outpatient SUE, [facility] [id number] 00:00[facility]00 00:00:00 [facility] 2019-08-10 2019-08-[address] [facility] [id number] 00:00:00 00:00:00 [id number] [facility] Results This patient has no known results.
[2023-04-22 17:49] LABS: Absolute Lymphocytes (CBC) 2.8 K/uL (0.7-4.9); Hematocrit 34.5 % (36.0-45.0); Lymphocytes % 34.1 % (15.3-44.8); MCV 104.3 fL (80-100); MPV 6.9 fL (7.6-11.3); Platelets 263 thou/uL (152-406); RBC Red Blood Cell Count 3.31 M/uL (3.86-4.86)
[2023-04-22] MEDS ORDERED: TDAP (DIPHTH,PERTUSS(ACELL),TET VAC) 0.5 ML VIAL IMVAC ONE (17:58)
[2023-04-22] MEDS ORDERED: FOLIC ACID 1 MG, MULTIVITAMINS INJ 10 ML, THIAMINE HCL 200 MG in NA CHLORIDE 0.9% 1,000 ML IV ONE (18:00)
[2023-04-22] MEDS ORDERED: FOLIC ACID 1 MG, MULTIVITAMINS INJ 10 ML, THIAMINE HCL 100 MG in NA CHLORIDE 0.9% 1,000 ML IV ONE (18:00)
[2023-04-22 18:11] LABS: Protime INR 0.95
[2023-04-22 18:13] LABS: ALT/SGPT 43 U/L (13-56); AST/SGOT 41 U/L (15-37); Albumin 3.3 g/dL (3.4-5.0); Alkaline Phosphatase 92 U/L (45-117); BUN Blood Urea Nitrogen 16 mg/dL (7-18); Bicarbonate 25 mEq/L (21-32); Bilirubin Total 0.3 mg/dL (0.2-1.0); Glomerular Filtration Rate 65 ml/min (=/>90); Glucose Level 107 mg/dL (74-106); Potassium 3.7 mEq/L (3.5-5.1); Protein, Total 6.9 g/dL (6.4-8.2); Sodium Level 132 mEq/L (136-145)
[2023-04-22 18:14] LABS: Bilirubin Direct < 0.1 mg/dL (0-0.2); Bilirubin Indirect, Calculated ND mg/dL (0.2-0.8)
--- NOTE | 2023-04-22 18:28 | RAD REPORT ---
EXAM DESCRIPTION: CT - Head C Spine Cap Wo Con - 04/22/2023 6:03 pm CLINICAL HISTORY: Head and neck injury with chest and abdominal pain status post fall TECHNIQUE: Computed axial tomography of head, neck, chest, abdomen and pelvis obtained. IV and oral contrast not requested. Coronal and sagittal reconstruction performed. All CT scans are performed using dose optimization technique as appropriate and may include automated exposure control or mA/KV adjustment according to patient size. COMPARISON: 2017 and 2018 FINDINGS: An intracranial bleed is not seen. Left posterior scalp swelling. Mild low-density within periventricular, deep and subcortical white matter probably ischemic changes secondary to small vessel disease The ventricles are normal in caliber. An extra-axial fluid collection is not noted. Fluid within the sinuses/mastoids is not seen. A cervical fracture is not seen. No dislocation is noted. The evaluation of mediastinum, liudmila, vessels, solid organs and bowel are limited secondary to the lac k of contrast administration. A mediastinal hematoma is not noted. A pleural effusion is not seen. A lung contusion is not present. Old right rib fracture The liver,spleen, pancreas, adrenals,kidneys and bladder do not demonstrate an acute traumatic injury Postsurgical changes lumbar spine Mild bilateral hydronephrosis. Genitourinary calculus not seen. Mild bladder distention IMPRESSION: No acute intracranial abnormality is seen. A cervical fracture is not visualized. If the patient continues to have symptoms to suggest intracran ial/spinal cord pathology MRI be recommended No acute traumatic abnormality involving the chest, abdomen or pelvis Mild bilateral hydronephrosis. Perhaps this is secondary to the bladder distention
[2023-04-22] MEDS ORDERED: LIDOCAINE 1% MPF 30 ML VIAL ONE (18:31)
--- NOTE | 2023-04-22 18:36 | ER ---
Nurse's Notes [facility] Name: Mechelle Sher Age: 77 yrs Sex: Female : 1945 Arrival Date: 04/22/2023 Time: 17:13 Bed 8 Private MD: Diagnosis: Syncope Near;Alcohol abuse with intoxication;Laceration without foreign body of other part of head-SCALP Presentation: 04/22 17:16 Chief complaint: Patient states: SHE WAS MAKING SOUP IN HER KITCHEN WHEN SHE LOST HER kc6 BALANCE AND FELL AND HIT HER HEAD ON THE CORNER COUNTER. EMS REPORTS LOC. PT REPORTS HAVING ABOUT 4 GLASSES OF WINE. Care prior to arrival: None. Mechanism of Injury: Fall from standing position. Trauma event details: Injury occurred in the [facility], Injury occurred: at home. Injury occurred: April 22, 2023. 17:16 Acuity: DARRIUS 2 kc6 17:16 Method Of Arrival: EMS: [facility] kc6 17:20 Coronavirus screen: At this time, the client does not indicate any symptoms associated kc with coronavirus-19. Ebola Screen: No symptoms or risks identified at this time. Initial Sepsis Screen: Does the patient meet any 2 criteria? No. Patient's initial sepsis screen is negative. Does the patient have a suspected source of infection? No. Patient's initial sepsis screen is negative. Risk Assessment: Do you want to hurt yourself or someone else? Patient reports no desire to harm self or others. Onset of symptoms was April 22, 2023. Trauma Activation: Alert Physician: ED Physician; Name: ; Notified At: ; Arrived At: Physician: General Surgeon; Name: ; Notified At: ; Arrived At: Physician: Radiology; Name: ; Notified At: ; Arrived At: Physician: Respiratory; Name: ; Notified At: ; Arrived At: Physician: Lab; Name: ; Notified At: ; Arrived At: Historical: - Allergies: 17:21 Iodine; kc6 17:21 Sulfa (Sulfonamide Antibiotics); kc6 - PMHx: 17:21 Anxiety; Hypertension; kc6 - PSHx: 17:21 back; bilateral knee; hysterectomy; left hand; kc6 Historical Immunization: - Administered Vaccines 20:19 Acetaminophen PO 650 mg vc1 18:49 Banana Bag - (NS 0.9% IV 1000 ml, foLIC Acid IVPB 1 mg, Thiamine IV 100 mg, kc6 Multivitamin IV 1 amp) 18:49 Thiamine IV 100 mg kc6 18:49 Lidocaine Infiltration (1 %) 5 ml kc6 17:50 Tetanus Toxoid,Adsorbed IM 0.5 ml kc6 Roll Hand: [employer]; Exp: Sat Oct 16 2024; Lot #: [id number]; Series: 1 of 1; Patient Consent: Obtained; Date/Time: ; Source Name: Mechelle Sher; Source Relationship: Self; [facility] [id number]; ; Education: Provided; VIS Presented Date: ; VIS Publication: Tetanus/Diphtheria (Td) Vaccine VIS 09/03/2016 (historic); Vaccine Funding Eligibility: C eligibility not determined/unknown - Immunization history: Last tetanus immunization: unknown. - Social history:: Smoking status: unknown Patient uses alcohol, weekly. Screenin:16 Abuse screen: Denies threats or abuse. Denies injuries from another. Tuberculosis kc6 screening: No symptoms or risk factors identified. 17:21 [facility] ED Fall Risk Assessment (Adult) History of falling in the last 3 months, kc6 including since admission Yes- physiologic fall (2 pts) Confusion or Disorientation No (0 pts) Intoxicated or Sedated Yes (3 pts) Impaired Gait No (0 pts) Mobility Assist Device Used No (0 pt) Altered Elimination No (0 pt) Score/Fall Risk Level 3 or more points = High Risk. Nutritional screening: No deficits noted. Primary Survey: 17:16 NO uncontrolled hemorrhage observed. A: The client is awake and alert. The airway is kc6 patent. Breathing/Chest: Spontaneous respiratory effort, equal unlabored respirations, breath sounds clear bilaterally, regular pattern, symmetrical chest rise and fall. Circulation: No external hemorrhage present. Regular and strong central pulse, skin warm/dry/normal color. Disability Pupils are equal, round, reactive to light and accommodation. Client is alert. Exposure/Environment: All clothing and personal items were removed. Forensic evidence collection is not deemed to be indicated at this time. Items placed in patient belonging bag. There is no evidence of uncontrolled external bleeding. No obvious injuries are noted at this time. A warming method has been applied: A warm blanket has been provided to the patient. 18:33 Reassessment Alertness and Airway: Awake and alert. The airway is patent. Breathing: kc6 Spontaneous respiratory effort, equal unlabored respirations, breath sounds clear bilaterally, regular pattern with symmetrical chest rise and fall. Circulation: No external hemorrhage noted. Regular and strong central pulse, skin warm/dry/normal color. Disability: Pupils Pupils are equal, round, reactive to light and accomodation. Alert. Secondary Survey: 17:16 HEENT: No deficits noted. Gastrointestinal: No deficits noted. : No signs and/or kc6 symptoms were reported regarding the genitourinary system. Musculoskeletal: No signs and/or symptoms reported regarding the musculoskeletal system. Circulation, motion, and sensation intact. Capillary refill < 3 seconds, Range of motion: intact in all extremities. Assessment: 17:16 General: Appears in no apparent distress. comfortable, Behavior is calm, cooperative, kc6 appropriate for age. Pain: Denies pain. Neuro: Denies dizziness, headache. EENT: No signs and/or symptoms were reported regarding the EENT system. Cardiovascular: Denies chest pain, Heart tones S1 S2 present Capillary refill < 3 seconds Rhythm is sinus rhythm. Respiratory: Airway is patent Trachea midline Respiratory effort is even, unlabored, Respiratory pattern is regular, symmetrical, Denies shortness of breath. GI: No signs and/or symptoms were reported involving the gastrointestinal system. : No signs and/or symptoms were reported regarding the genitourinary system. Derm: No signs and/or symptoms reported regarding the dermatologic system. Skin is intact, is healthy with good turgor, Skin is pink, warm \T\ dry. Musculoskeletal: No signs and/or symptoms reported regarding the musculoskeletal system. Circulation, motion, and sensation intact. Capillary refill < 3 seconds, Range of motion: intact in all extremities. Injury Description: Laceration sustained to scalp is clean, not bleeding, was sustained 30-60 minutes ago. no active bleeding noted at this time. 18:33 Reassessment: Patient appears in no apparent distress at this time. No changes from kc6 previously documented assessment. Patient and/or family updated on plan of care and expected duration. Pain level reassessed. Patient is alert, oriented x 3, equal unlabored respirations, skin warm/dry/pink. 18:36 Reassessment: D/C PENDING IV FLUID COMPLETION AND LAB RESULTS. kc6 19:00 Reassessment: Patient and/or family updated on plan of care and expected duration. Pain vc1 level reassessed. Patient is alert, oriented x 3, equal unlabored respirations, skin warm/dry/pink. Patient states symptoms have improved. 20:00 Reassessment: No changes from previously documented assessment. Patient and/or family vc1 updated on plan of care and expected duration. Pain level reassessed. Patient is alert, oriented x 3, equal unlabored respirations, skin warm/dry/pink. 21:00 Reassessment: Patient and/or family updated on plan of care and expected duration. Pain vc1 level reassessed. Patient is alert, oriented x 3, equal unlabored respirations, skin warm/dry/pink. Patient states feeling better. Patient states symptoms have improved. Vital Signs: 17:16 BP 119 / 69; Pulse 71; Resp 16 S; Pulse Ox 96% on R/A; Weight 63.5 kg (R); Height 5 ft. kc6 4 in. (R); 18:33 BP 123 / 64; Pulse 67; Resp 17 S; Pulse Ox 97% on R/A; kc6 19:00 BP 112 / 59; Pulse 66; Resp 16; Pulse Ox 95% ; vc1 20:00 BP 119 / 60; Pulse 66; Resp 17; Pulse Ox 96% ; vc1 21:00 BP 103 / 51; Pulse 64; Resp 16; Pulse Ox 99% ; vc1 17:16 Body Mass Index 24.03 (63.50 kg, 162.56 cm) kc6 [place] Coma Score: 17:16 Eye Response: spontaneous(4). Motor Response: obeys commands(6). Verbal Response: kc6 oriented(5). Total: 15. 18:23 Eye Response: spontaneous(4). Motor Response: obeys commands(6). Verbal Response: blanca oriented(5). Total: 15. 18:27 Eye Response: spontaneous(4). Motor Response: obeys commands(6). Verbal Response: blanca oriented(5). Total: 15. Trauma Score (Adult): 17:16 Eye Response: spontaneous(1); Verbal Response: oriented(1); Motor Response: obeys kc6 commands(2); Systolic BP: > 89 mm Hg(4); Respiratory Rate: 10 to 29 per min(4); Janiya Score: 15; Trauma Score: 12 ED Course: 17:15 Patient arrived in ED. em1 17:16 Sabina Ritter RN is Primary Nurse. kc6 17:16 Patient has correct armband on for positive identification. Bed in low position. Call kc6 light in reach. Side rails up X2. Patient maintains SpO2 saturation greater than 95% on room air. 17:16 Patient maintains SpO2 saturation greater than 95% on room air. kc6 17:18 Triage completed. kc6 17:20 Bebeto Carmona MD is Attending Physician. [facility] 17:21 Arm band placed on. kc6 17:21 Thermoregulation: warm blanket given to patient. kc6 17:27 Maintain EMS IV. Dressing intact. Good blood return noted. Site clean \T\ dry. Gauge \T\ luisa 6 site: 20g lac. 18:05 CT Traumagram (Head C Spine CAP wo con) In Process Unspecified. EDMS 19:00 Report given to SAVANAH Rodriges \T\ SAVANAH Raya. kc6 19:20 Primary Nurse role handed off by Sabina Ritter RN bp 19:20 Antelmo Mccormick RN is Primary Nurse. bp 21:34 No provider procedures requiring assistance completed. IV discontinued, intact, vc1 bleeding controlled, No redness/swelling at site. Pressure dressing applied. Administered Medications: 17:50 Drug: Tetanus Toxoid,Adsorbed IM 0.5 ml IM once; Provide Vaccine Information Statement kc6 (VIS). {Roll Hand: [employer]; Exp: Sat Oct 16 2024; Lot #: [id number]; Series: 1 of 1; Patient Consent: Obtained; Date/Time: ; Source Name: Mechelle Sher; Source Relationship: Self; [facility] [address]; ; Education: Provided; VIS Presented Date: ; VIS Publication: Tetanus/Diphtheria (Td) Vaccine VIS 09/03/2016 (historic); Vaccine Funding Eligibility: C eligibility not determined/unknown} Route: IM; Site: left deltoid; 18:34 Follow up: Response: No adverse reaction kc6 18:49 Drug: Banana Bag - (Multivitamin IV 1 amp, NS 0.9% IV 1000 ml, Thiamine IV 100 mg, kc6 foLIC Acid IVPB 1 mg) IV at 500 ml/hr once Route: IV; Rate: 500 ml/hr; Site: left wrist; 18:49 Drug: Thiamine IV 100 mg IV at per protocol once Route: IV; Rate: per protocol; Site: kc6 left antecubital; 18:49 Drug: Lidocaine Infiltration (1 %) 5 ml 5 ml Infiltration once; to bedside Volume: 5 kc6 ml; Route: Infiltration; 20:19 Drug: Acetaminophen PO 650 mg PO once Route: PO; vc1 Medication: 21:35 VIS not applicable for this client. vc1 Outcome: 18:35 Discharge ordered by MD. rios 21:35 Discharged to home ambulatory, with friend, 1 21:35 Condition: improved 21:35 Discharge instructions given to patient, friend, Instructed on discharge instructions, follow up and referral plans. medication usage, Demonstrated understanding of instructions, follow-up care, medications, Prescriptions given X 1, 21:35 Patient left the ED. vc1 Signatures: Dispatcher [employer] EDMS Bebeto Carmona MD MD cha Martinez, Eric em1 Antelmo Mccormick, RN RN Dorota Andrade RN RN vc1 Sabina Ritter RN RN kc6
--- NOTE | 2023-04-22 18:36 | EDPHYS ---
Physician Documentation [facility] Name: Mechelle Sher Age: 77 yrs Sex: Female : 1945 Arrival Date: 04/22/2023 Time: 17:13 Bed 8 Private MD: ED Physician Bebeto Carmona HPI: 04/22 18:23 This 77 yrs old Female presents to ER via EMS with complaints of Head Injury blanca With LOC-Adult. 18:23 The patient or guardian reports a laceration, 3.5 cm(s), pain. The complaints affect blanca the left side of the back of head, left occipital area, right side of the back of head and right occipital area. Context of injury: The problem was sustained at home. Onset: The symptoms/episode began/occurred just prior to arrival. Associated signs and symptoms: The patient has no apparent associated signs or symptoms, Loss of consciousness: This patient experience a loss of consciousness, the patient was "dazed". Severity of symptoms: At their worst the symptoms were mild, in the emergency department the symptoms are unchanged. The patient has not experienced similar symptoms in the past. Historical: - Allergies: 17:21 Iodine; kc6 17:21 Sulfa (Sulfonamide Antibiotics); kc6 - PMHx: 17:21 Anxiety; Hypertension; kc6 - PSHx: 17:21 back; bilateral knee; hysterectomy; left hand; kc6 - Immunization history: Last tetanus immunization: unknown. - Social history:: Smoking status: unknown Patient uses alcohol, weekly. ROS: 18:25 Constitutional: Negative for fever, chills, and weight loss, Eyes: Negative for injury, blanca pain, redness, and discharge, ENT: Negative for injury, pain, and discharge, Neck: Negative for injury, pain, and swelling, Cardiovascular: Negative for chest pain, palpitations, and edema, Respiratory: Negative for shortness of breath, cough, wheezing, and pleuritic chest pain, Abdomen/GI: Negative for abdominal pain, nausea, vomiting, diarrhea, and constipation, Back: Negative for injury and pain, : Negative for injury, bleeding, discharge, and swelling, MS/Extremity: Negative for injury and deformity, Psych: Negative for depression, anxiety, suicide ideation, homicidal ideation, and hallucinations, Allergy/Immunology: Negative for hives, rash, and allergies, Endocrine: Negative for neck swelling, polydipsia, polyuria, polyphagia, and marked weight changes, Hematologic/Lymphatic: Negative for swollen nodes, abnormal bleeding, and unusual bruising, 18:25 Skin: Positive for laceration(s), of the scalp, 18:25 Neuro: Positive for altered mental status, weakness, Exam: 18:25 Constitutional: This is a well developed, well nourished patient who is awake, alert, blanca and in no acute distress. Eyes: Pupils equal round and reactive to light, extra-ocular motions intact. Lids and lashes normal. Conjunctiva and sclera are non-icteric and not injected. Cornea within normal limits. Periorbital areas with no swelling, redness, or edema. ENT: Nares patent. No nasal discharge, no septal abnormalities noted. Tympanic membranes are normal and external auditory canals are clear. Oropharynx with no redness, swelling, or masses, exudates, or evidence of obstruction, uvula midline. Mucous membranes moist. Neck: Trachea midline, no thyromegaly or masses palpated, and no cervical lymphadenopathy. Supple, full range of motion without nuchal rigidity, or vertebral point tenderness. No Meningismus. Chest/axilla: Normal chest wall appearance and motion. Nontender with no deformity. No lesions are appreciated. Cardiovascular: Regular rate and rhythm with a normal S1 and S2. No gallops, murmurs, or rubs. Normal PMI, no JVD. No pulse deficits. Respiratory: Lungs have equal breath sounds bilaterally, clear to auscultation and percussion. No rales, rhonchi or wheezes noted. No increased work of breathing, no retractions or nasal flaring. Abdomen/GI: Soft, non-tender, with normal bowel sounds. No distension or tympany. No guarding or rebound. No evidence of tenderness throughout. Back: No spinal tenderness. No costovertebral tenderness. Full range of motion. Female : Normal external genitalia. Skin: Warm, dry with normal turgor. Normal color with no rashes, no lesions, and no evidence of cellulitis. MS/ Extremity: Pulses equal, no cyanosis. Neurovascular intact. Full, normal range of motion. Psych: Awake, alert, with orientation to person, place and time. Behavior, mood, and affect are within normal limits. 18:25 Head/face: Noted is a laceration(s), that is linear, 3 cm(s), of the left side of the back of head, left occipital area, right side of the back of head and right occipital area, 18:36 ECG was reviewed by the Attending Physician. blanca Vital Signs: 17:16 BP 119 / 69; Pulse 71; Resp 16 S; Pulse Ox 96% on R/A; Weight 63.5 kg (R); Height 5 ft. kc6 4 in. (R); 18:33 BP 123 / 64; Pulse 67; Resp 17 S; Pulse Ox 97% on R/A; kc6 19:00 BP 112 / 59; Pulse 66; Resp 16; Pulse Ox 95% ; vc1 20:00 BP 119 / 60; Pulse 66; Resp 17; Pulse Ox 96% ; vc1 21:00 BP 103 / 51; Pulse 64; Resp 16; Pulse Ox 99% ; vc1 17:16 Body Mass Index 24.03 (63.50 kg, 162.56 cm) kc6 Janiya Coma Score: 17:16 Eye Response: spontaneous(4). Motor Response: obeys commands(6). Verbal Response: kc6 oriented(5). Total: 15. 18:23 Eye Response: spontaneous(4). Motor Response: obeys commands(6). Verbal Response: blanca oriented(5). Total: 15. 18:27 Eye Response: spontaneous(4). Motor Response: obeys commands(6). Verbal Response: blanca oriented(5). Total: 15. Trauma Score (Adult): 17:16 Eye Response: spontaneous(1); Verbal Response: oriented(1); Motor Response: obeys kc6 commands(2); Systolic BP: > 89 mm Hg(4); Respiratory Rate: 10 to 29 per min(4); Janiya Score: 15; Trauma Score: 12 Laceration: 18:25 Wound Repair of 3cm ( 1.2in ) subcutaneous laceration to left side of the back of head blanca and scalp. Linear shaped.. Distal neuro/vascular/tendon intact. Anesthesia: Local anesthetic administered with 8 mls of 1% lidocaine. Wound prep: Moderate cleansing by me. Skin closed with 4 4 AUBREY Aubrey using staple gun. MDM: 17:20 Patient medically screened. blanca 18:27 Differential diagnosis: Contusion of Hematoma on Laceration of Intracranial bleed- [facility] Concussion with LOC. cerebral contusion. Differential diagnosis: closed head injury, contusion, fracture, laceration, multiple trauma, sprain, strain. Data reviewed: vital signs, nurses notes, lab test result(s), EKG, radiologic studies, CT scan. Consideration of Admission/Observation Escalation of care including admission/observation considered. 04/22 17:24 Order name: Acetaminophen; Complete Time: 18:[address] [facility] 04/22 17:24 Order name: Basic Metabolic Panel; Complete Time: 18:[address] [facility] 04/22 17:24 Order name: CBC with Diff; Complete Time: 18:[address] [facility] 04/22 17:24 Order name: ETOH Level; Complete Time: 18:[address] [facility] 04/22 17:24 Order name: Hepatic Function; Complete Time: 18:[address] [facility] 04/22 17:24 Order name: PT-INR; Complete Time: 18:[address] [facility] 04/22 17:24 Order name: Ptt, Activated; Complete Time: 18:[address] [facility] 04/22 17:24 Order name: Salicylate; Complete Time: 18:[address] [facility] 04/22 17:24 Order name: CT Traumagram (Head C Spine CAP wo con); Complete Time: 18:[address] [facility] 04/22 17:24 Order name: EKG; Complete Time: 17:[address] [facility] 04/22 17:24 Order name: EKG - Nurse/Tech; Complete Time: 17:[address] [facility] 04/22 17:24 Order name: IV Saline Lock; Complete Time: 17:[address] [facility] 04/22 17:24 Order name: Labs collected and sent; Complete Time: 17:[address] [facility] 04/22 17:24 Order name: Suicide Screening ([place]); Complete Time: 17:[address] [facility] 04/22 17:24 Order name: Dressing - Wound; Complete Time: 17:[address] [facility] 04/22 17:24 Order name: Gloves, Sterile; Complete Time: 17:[address] [facility] 04/22 17:24 Order name: Setup Suture Tray; Complete Time: 17:[address] [facility] EC:36 Rate is 66 beats/min. Rhythm is regular. QRS [place] is Normal. CA interval is normal. QRS blanca interval is normal. QT interval is normal. No Q waves. T waves are Normal. No ST changes noted. Clinical impression: NSR w/ Non-specific ST/T Changes and No evidence of ischemia. Interpreted by me. Reviewed by me. Administered Medications: 17:50 Drug: Tetanus Toxoid,Adsorbed IM 0.5 ml IM once; Provide Vaccine Information Statement kc6 (VIS). {Batcher Operator: Parkt; Exp: Sat Oct 16 2024; Lot #: [id number]; Series: 1 of 1; Patient Consent: Obtained; Date/Time: ; Source Name: Mechelle Sher; Source Relationship: Self; Address Information: [address] [place] [address] [facility] [address]; ; Education: Provided; VIS Presented Date: ; VIS Publication: Tetanus/Diphtheria (Td) Vaccine VIS 09/03/2016 (historic); Vaccine Funding Eligibility: [facility] eligibility not determined/unknown} Route: IM; Site: left deltoid; 18:34 Follow up: Response: No adverse reaction kc6 18:49 Drug: Banana Bag - (Multivitamin IV 1 amp, NS 0.9% IV 1000 ml, Thiamine IV 100 mg, kc6 foLIC Acid IVPB 1 mg) IV at 500 ml/hr once Route: IV; Rate: 500 ml/hr; Site: left wrist; 18:49 Drug: Thiamine IV 100 mg IV at per protocol once Route: IV; Rate: per protocol; Site: kc6 left antecubital; 18:49 Drug: Lidocaine Infiltration (1 %) 5 ml 5 ml Infiltration once; to bedside Volume: 5 kc6 ml; Route: Infiltration; 20:19 Drug: Acetaminophen PO 650 mg PO once Route: PO; vc1 Disposition Summary: 04/22/23 18:35 Discharge Ordered Notes: Location: Home blanca Problem: new blanca Symptoms: have improved blanca Condition: Stable blanca Diagnosis - Syncope Near blanca - Alcohol abuse with intoxication blanca - Laceration without foreign body of other part of head - SCALP blanca Followup: blanca - With: Private Physician - When: 2 - 3 days - Reason: Recheck today's complaints, Continuance of care, Re-evaluation by your physician Discharge Instructions: - Discharge Summary Sheet blanca - Alcohol Intoxication blanca - Facial or Scalp Contusion blanca - Laceration Care, Adult blanca - Near-Syncope blanca - Weakness blanca - Alcohol Intoxication, [id number] blanca - Near-Syncope, Gctm-gm-[id number] blanca - Laceration Care, Adult, Ghfy-iy-Ximu blanca - Weakness, [id number]-gu-[id number] [facility] Forms: - Medication Reconciliation Form blanca - Thank You Letter blanca - Antibiotic Education blanca - Prescription Opioid Use blanca - Patient Portal Instructions blanca - Leadership Thank You Letter blanca Prescriptions: - Cephalexin 500 mg Oral capsule - take 1 capsule ORAL route every 6 hours for 7 days; 28 capsule; Refills: 0, blanca Product Selection Permitted Signatures: Dispatcher [employer] Bebeto Estes MD MD cha Calcote, Vanessa RN RN vc1 Sabina Ritter RN RN kc6
[2023-04-22] MEDS ORDERED: LIDOCAINE 1% MPF 5 ML VIAL ONE (18:45)
[2023-04-22] MEDS ORDERED: ACETAMINOPHEN 325 MG TABLET ONE (20:29)
[2023-04-22 21:57] VITALS: BP 103/51; O2SAT 99
--- NOTE | 2023-04-24 15:20 | EKG ---
Test Date: 2023-04-22 Test Time: 17:33:24 Crushing Foreman: JA MEASUREMENT RESULTS: Intervals: Rate: 66 LA: 162 QRSD: 82 QT: 408 QTc: 427 [place]: P: 64 LA: 162 QRS: 51 T: 70 INTERPRETIVE STATEMENTS: Normal sinus rhythm Nonspecific T wave abnormality Abnormal ECG Compared to ECG 09/16/2021 21:19:42 No significant changes Electronically Signed On 04-24-23 15:13:16 HUMAN MACHINE INTERFACE ENGINEER by Anthony Lopez
== END 2023-04-22 21:35 | disposition home or self-care (01) ==
LOC: ER 17:13
PROC: 0HQ0XZZ Repair Scalp Skin, External Approach (ICD-10-PCS; principal; 2023-04-22)
DX: F10.129 Alcohol abuse with intoxication, unspecified (principal); S01.01XA Laceration without foreign body of scalp, initial encounter; Z23 Encounter for immunization; I10 Essential (primary) hypertension; Z88.2 Allergy status to sulfonamides; Z91.048 Other nonmedicinal substance allergy status
CPT/HCPCS: 93005; 85025; 80048; 36415; 85610; 80076; 85730; 70450; 71250; 72125; 90471; 99285; 80143; 80179; 82077; 12002; J3411; J2001 ×2; J7030

== ENCOUNTER → 2023-05-19 | Emergency (ER) | payer OTHER ==
[~2023-05-19] MED LIST: CIPROFLOXACIN HCL 500 MG TAB ONE; DICYCLOMINE HCL 10 MG CAP ONE; metroNIDAZOLE 500 MG TABLET ONE
--- NOTE | 2023-05-19 11:46 | ER ---
Nurse's Notes [facility] Name: Mechelle Sher Age: 77 yrs Sex: Female : 1945 Arrival Date: 05/19/2023 Time: 11:13 Bed 14 Private MD: Diagnosis: Dysuria Presentation: 05/19 11:37 Chief complaint: Patient states: DYSURIA x3 DAYS, HEMATURIA SINCE THIS AM. Coronavirus ll1 screen: At this time, the client does not indicate any symptoms associated with coronavirus-19. Ebola Screen: No symptoms or risks identified at this time. Initial Sepsis Screen: Does the patient meet any 2 criteria? No. Patient's initial sepsis screen is negative. Does the patient have a suspected source of infection? No. Patient's initial sepsis screen is negative. Risk Assessment: Do you want to hurt yourself or someone else? Patient reports no desire to harm self or others. Onset of symptoms is unknown. 11:37 Method Of Arrival: Ambulatory ll1 11:37 Acuity: DARRIUS 4 ll1 Triage Assessment: 11:39 General: Appears in no apparent distress. comfortable, Behavior is calm, cooperative, ll1 appropriate for age. Pain: Denies pain. : Reports burning with urination. Historical: - Allergies: 11:39 Iodine; ll1 11:39 Sulfa (Sulfonamide Antibiotics); ll1 - Home Meds: 11:39 alprazolam 0.25 mg Oral tab 1 tab daily [Active]; losartan 100 mg oral tablet 1 tab ll1 daily [Active]; citalopram 20 mg oral tablet 1 tab daily [Active]; aspirin 81 mg Oral capsule 1 cap daily [Active]; - PMHx: 11:39 Anxiety; Hypertension; ll1 - PSHx: 11:39 back; bilateral knee; left hand; hysterectomy; ll1 - Immunization history:: Adult Immunizations up to date. - Social history:: Smoking status: Patient denies any tobacco usage or history of. Screenin:41 [facility] ED Fall Risk Assessment (Adult) History of falling in the last 3 months, ll1 including since admission No falls in past 3 months (0 pts). Abuse screen: Denies threats or abuse. Denies injuries from another. Nutritional screening: No deficits noted. Tuberculosis screening: No symptoms or risk factors identified. Assessment: 11:39 Reassessment: please see triage assessment. kc6 Vital Signs: 11:37 BP 133 / 95; Pulse 103; Resp 16; Temp 97.5; Pulse Ox 98% ; Weight 63.5 kg; Height 5 ft. ll1 4 in. ; 11:37 Body Mass Index 24.03 (63.50 kg, 162.56 cm) ll1 ED Course: 11:14 Patient arrived in ED. ts1 11:15 [facility] snw 11:16 Ashvin Krause MD is Attending Physician. snw 11:39 Triage completed. ll1 11:39 Arm band placed on. ll1 11:41 Patient has correct armband on for positive identification. ll1 12:02 Velia Chen, RN is Primary Nurse. me1 12:37 Patient maintains SpO2 saturation greater than 95% on room air. kc6 12:37 No provider procedures requiring assistance completed. Patient did not have IV access kc6 during this emergency room visit. Administered Medications: 12:29 Drug: Dicyclomine PO 20 mg PO once Route: PO; kc6 12:36 Follow up: Response: No adverse reaction kc6 12:30 Drug: Ciprofloxacin PO 500 mg PO once Route: PO; kc6 12:36 Follow up: Response: No adverse reaction kc6 12:30 Drug: metroNIDAZOLE PO 500 mg PO once Route: PO; kc6 12:36 Follow up: Response: No adverse reaction kc6 Medication: 12:37 VIS not applicable for this client. kc6 Outcome: 11:46 Discharge ordered by MD. snw 12:37 Discharged to home ambulatory, kc6 12:37 Condition: good 12:37 Discharge instructions given to patient, Instructed on discharge instructions, follow up and referral plans. medication usage, Demonstrated understanding of instructions, follow-up care, medications, Prescriptions given X 3, 12:37 Patient left the ED. kc6 Signatures: Roxane Lanier FNP-C FNP-Alexander Reyes RN RN ll1 Sabina Ritter RN RN kc6 Becky Barry PAS PAS ts1 Velia Chen, RN RN me1 Corrections: (The following items were deleted from the chart) 11:40 11:39 Home Meds: celecoxib 200 mg Oral cap 1 cap 2 times per day; 1 ll1
--- NOTE | 2023-05-19 11:46 | EDPHYS ---
Physician Documentation [facility] Name: Mechelle Sher Age: 77 yrs Sex: Female : 1945 Arrival Date: 05/19/2023 Time: 11:13 Bed 14 Private MD: ED Physician Ashvin Krause HPI: 05/19 11:44 This 77 yrs old Female presents to ER via Ambulatory with complaints of Blood in urine. snw 11:44 The patient presents with urinary symptoms, dysuria, frequency, hematuria, x 3 days. snw Onset: The symptoms/episode began/occurred suddenly, 3 day(s) ago, and became persistent. Associated signs and symptoms: Pertinent positives: cramping, dysuria, hematuria, Pertinent negatives: fever, flank pain. Severity of symptoms: At their worst the symptoms were moderate. The patient has experienced a previous episode. It is unknown whether or not the patient has recently seen a physician. Historical: - Allergies: 11:39 Iodine; ll1 11:39 Sulfa (Sulfonamide Antibiotics); ll1 - Home Meds: 11:39 alprazolam 0.25 mg Oral tab 1 tab daily [Active]; losartan 100 mg oral tablet 1 tab ll1 daily [Active]; citalopram 20 mg oral tablet 1 tab daily [Active]; aspirin 81 mg Oral capsule 1 cap daily [Active]; - PMHx: 11:39 Anxiety; Hypertension; ll1 - PSHx: 11:39 back; bilateral knee; left hand; hysterectomy; ll1 - Immunization history:: Adult Immunizations up to date. - Social history:: Smoking status: Patient denies any tobacco usage or history of. ROS: 11:42 Constitutional: Negative for fever, chills, and weight loss, Eyes: Negative for injury, snw pain, redness, and discharge, ENT: Negative for injury, pain, and discharge, Neck: Negative for injury, pain, and swelling, Cardiovascular: Negative for chest pain, palpitations, and edema, Respiratory: Negative for shortness of breath, cough, wheezing, and pleuritic chest pain, Abdomen/GI: Negative for abdominal pain, nausea, vomiting, diarrhea, and constipation, Back: Negative for injury and pain, MS/Extremity: Negative for injury and deformity, Skin: Negative for injury, rash, and discoloration, Neuro: Negative for headache, weakness, numbness, tingling, and seizure, Psych: Negative for depression, anxiety, suicide ideation, homicidal ideation, and hallucinations, 11:42 : Positive for urinary symptoms, hematuria, burning with urination, Exam: 11:42 Constitutional: This is a well developed, well nourished patient who is awake, alert, snw and in no acute distress. Head/Face: Normocephalic, atraumatic. Eyes: Pupils equal round and reactive to light, extra-ocular motions intact. Lids and lashes normal. Conjunctiva and sclera are non-icteric and not injected. Cornea within normal limits. Periorbital areas with no swelling, redness, or edema. ENT: Nares patent. No nasal discharge, no septal abnormalities noted. Tympanic membranes are normal and external auditory canals are clear. Oropharynx with no redness, swelling, or masses, exudates, or evidence of obstruction, uvula midline. Mucous membranes moist. Neck: Trachea midline, no thyromegaly or masses palpated, and no cervical lymphadenopathy. Supple, full range of motion without nuchal rigidity, or vertebral point tenderness. No Meningismus. Chest/axilla: Normal chest wall appearance and motion. Nontender with no deformity. No lesions are appreciated. Cardiovascular: Regular rate and rhythm with a normal S1 and S2. No gallops, murmurs, or rubs. Normal PMI, no JVD. No pulse deficits. Respiratory: Lungs have equal breath sounds bilaterally, clear to auscultation and percussion. No rales, rhonchi or wheezes noted. No increased work of breathing, no retractions or nasal flaring. Back: No spinal tenderness. No costovertebral tenderness. Full range of motion. Skin: Warm, dry with normal turgor. Normal color with no rashes, no lesions, and no evidence of cellulitis. MS/ Extremity: Pulses equal, no cyanosis. Neurovascular intact. Full, normal range of motion. Neuro: Awake and alert, GCS 15, oriented to person, place, time, and situation. Cranial nerves II-XII grossly intact. Motor strength 5/5 in all extremities. Sensory grossly intact. Cerebellar exam normal. Normal gait. Psych: Awake, alert, with orientation to person, place and time. Behavior, mood, and affect are within normal limits. 11:42 Abdomen/GI: Inspection: abdomen appears normal, Bowel sounds: normal, Palpation: mild abdominal tenderness, lower left and right abd, Vital Signs: 11:37 BP 133 / 95; Pulse 103; Resp 16; Temp 97.5; Pulse Ox 98% ; Weight 63.5 kg; Height 5 ft. ll1 4 in. ; 11:37 Body Mass Index 24.03 (63.50 kg, 162.56 cm) ll1 MDM: 11:18 Patient medically screened. snw 11:43 Differential diagnosis: viral Infection, bacterial infection, UTI. Data reviewed: vital snw signs, nurses notes. I considered the following discharge prescriptions or medication management in the emergency department Medications were administered in the Emergency Department. See MAR. Counseling: I had a detailed discussion with the patient and/or guardian regarding the historical points, exam findings, and any diagnostic results supporting the discharge/admit diagnosis, lab results, the need for outpatient follow up, for definitive care, to return to the emergency department if symptoms worsen or persist or if there are any questions or concerns that arise at home. Special discussion: Based on the history and exam findings, there is no indication for further emergent testing or inpatient evaluation. I discussed with the patient/guardian the need to see the primary care provider for further evaluation of the symptoms. 05/19 11:37 Order name: Urine W/Microscopic (UAM); Complete Time: 12:11 snw 05/19 12:13 Order name: Urine Culture EDMS Administered Medications: 12:29 Drug: Dicyclomine PO 20 mg PO once Route: PO; kc6 12:36 Follow up: Response: No adverse reaction kc6 12:30 Drug: Ciprofloxacin PO 500 mg PO once Route: PO; kc6 12:36 Follow up: Response: No adverse reaction kc6 12:30 Drug: metroNIDAZOLE PO 500 mg PO once Route: PO; kc6 12:36 Follow up: Response: No adverse reaction kc6 Disposition: 12:47 Co-signature as Attending Physician, Ashvin Krause MD I reviewed the patient's care rt provided by the Advanced Practice Provider and agree with the diagnosis and treatment plan. Disposition Summary: 05/19/23 11:46 Discharge Ordered Notes: Location: Home snw Condition: Stable snw Diagnosis - Dysuria snw Followup: snw - With: Emergency Department - When: As needed - Reason: Worsening of condition Followup: snw - With: Private Physician - When: 2 - 3 days - Reason: Recheck today's complaints, Continuance of care, Re-evaluation by your physician Discharge Instructions: - Discharge Summary Sheet snw - Abdominal Pain, Adult snw - Dysuria snw - Rehydration, Elderly snw - Abdominal Bloating snw Forms: - Medication Reconciliation Form snw - Thank You Letter snw - Antibiotic Education snw - Prescription Opioid Use snw - Patient Portal Instructions snw - Leadership Thank You Letter snw Prescriptions: - Cipro 500 mg Oral Tablet - take 1 tablet ORAL route every 12 hours for 10 days; 20 tablet; Refills: 0, snw Product Selection Permitted - Flagyl 500 mg Oral Tablet - take 1 tablet ORAL route every 8 hours for 10 days; 30 tablet; Refills: 0, snw Product Selection Permitted - dicyclomine 20 mg Oral tablet - take 1 tablet ORAL route 3 times per day; 21 tablet; Refills: 0, Product snw Selection Permitted Signatures: Dispatcher [employer] EDMS Roxane Lanier FNP-C [employer]-[facility] Alexander Pandey, RN RN ll1 Sabina Ritter RN RN kc6 Ashvin Krause MD MD rt Corrections: (The following items were deleted from the chart) 11:40 11:39 Home Meds: celecoxib 200 mg Oral cap 1 cap 2 times per day; ll1 ll1
[2023-05-19 12:08] LABS: Specific Gravity 1.011 (1.005-1.030); Urine Bacteria <20 /HPF (<20); Urine Bilirubin NEGATIVE (Negative); Urine Blood 1+ (Negative); Urine Clarity Extremely Turbid (Clear); Urine Color Yellow (Yellow); Urine Crystals Unidentified Few /HPF (None Seen); Urine Glucose NEGATIVE (Negative); Urine Protein TRACE (Negative); Urine Urobilinogen Normal (Normal); Urine WBC Clump Many /HPF (None Seen)
[2023-05-19 12:48] VITALS: BP 133/95; TEMP 97.5; O2SAT 98
== END ==
LOC: ER 11:13
DX: R30.0 Dysuria (principal); R31.9 Hematuria, unspecified; Z88.2 Allergy status to sulfonamides
CPT/HCPCS: 81001; 87077; 87086; 87088; 87186; 99284

== ENCOUNTER → 2023-07-31 | Emergency (ER) | payer OTHER ==
[~2023-07-31] MED LIST changes: -CIPROFLOXACIN HCL 500 MG TAB ONE; -DICYCLOMINE HCL 10 MG CAP ONE; +ETOMIDATE 20 MG/10 ML VIAL IV ONE; +HYDROCODONE/APAP 10/325 TAB ONE; +IBUPROFEN 400 MG TAB ONE; +MIDAZOLAM HCL 5 ML ONE; +MORPHINE 4 MG/ML SYR ONE; +ONDANSETRON 4 MG (ODT) TAB ONE; +ONDANSETRON 4 MG/2 ML VIAL ONE; +methocarbamoL 750 MG TAB ONE; -metroNIDAZOLE 500 MG TABLET ONE
--- NOTE | 2023-07-31 06:43 | EDPHYS ---
Physician Documentation [facility] Name: Mechelle Sher Age: 77 yrs Sex: Female : 1945 Arrival Date: 07/31/2023 Time: 04:00 Bed DX3 Private MD: ED Physician Chavo Tolentino HPI: 07/30 04:09 This 77 yrs old Female presents to ER via Unassigned with complaints of Arm sp4 Injury, Arm Pain, Fall Injury. 04:54 Patient states she fell down at home while going to the kitchen to get a bottle of sp4 water. Patient sustained injury to left wrist. Patient presents with left wrist moderate to severe pain left wrist deformity and numbness in the left hand. Reports history of hypertension takes losartan.. Historical: - Allergies: 04:30 Iodine; vc1 04:30 Sulfa (Sulfonamide Antibiotics); vc1 - PMHx: 04:30 Anxiety; Hypertension; vc1 - PSHx: 04:30 back; bilateral knee; hysterectomy; left hand; vc1 - Immunization history:: Adult Immunizations up to date. - Social history:: Smoking status: Patient denies any tobacco usage or history of. - Family history:: not pertinent. ROS: 04:54 Constitutional: Negative for fever, chills, and weight loss, positive injury and sp4 deformity to left wrist 04:54 All other systems are negative, Exam: 04:54 Constitutional: This is a well developed, well nourished patient who is awake, alert, sp4 and in no acute distress. Head/Face: Normocephalic, atraumatic. Eyes: Pupils equal round and reactive to light, extra-ocular motions intact. Lids and lashes normal. Conjunctiva and sclera are not injected. Cornea within normal limits. Periorbital areas with no swelling, redness, or edema. ENT: Nares patent. No nasal discharge, no septal abnormalities noted. Tympanic membranes are normal and external auditory canals are clear. Oropharynx with no redness, swelling, or masses, exudates, or evidence of obstruction, uvula midline. Mucous membranes moist. Neck: Trachea midline, no thyromegaly or masses palpated, and no cervical lymphadenopathy. Supple, full range of motion without nuchal rigidity, or vertebral point tenderness. Chest/axilla: Normal chest wall appearance and motion. Nontender with no deformity. No lesions are appreciated. Cardiovascular: Regular rate and rhythm with a normal S1 and S2. No gallops, murmurs, or rubs. Normal PMI, no JVD. No pulse deficits. Respiratory: Lungs have equal breath sounds bilaterally, clear to auscultation and percussion. No rales, rhonchi or wheezes noted. No increased work of breathing, no retractions or nasal flaring. Abdomen/GI: Soft, with normal bowel sounds. No distension or tympany. No guarding or rebound. No evidence of tenderness throughout. Back: No spinal tenderness. No costovertebral tenderness. Skin: Warm, dry with normal turgor. Normal color with no rashes, no lesions, and no evidence of cellulitis. MS/ Extremity: Pulses equal, no cyanosis. Neurovascular intact. Full, normal range of motion. Neuro: Awake and alert, GCS 15, oriented to person, place, time, and situation. Cranial nerves II-XII grossly intact. Motor strength 5/5 in all extremities. Sensory grossly intact. Psych: Awake, alert, with orientation to person, place and time. Behavior, mood, and affect are within normal limits Vital Signs: 04:27 BP 162 / 84; Pulse 71; Resp 14; Pulse Ox 99% ; Weight 65.77 kg; Height 5 ft. 4 in. ; vc1 Pain 10/10; 08:25 BP 147 / 87; Pulse 68; Resp 16 S; Temp 97.8(TE); Pulse Ox 98% on R/A; aa5 04:27 Body Mass Index 24.89 (65.77 kg, 162.56 cm) vc1 04:27 Pain Scale: Adult vc1 Procedures: 05:33 Moderate sedation: Pre-procedure assessment: the patient has been NPO 4 hour(s) prior sp4 to arrival, ASA physical classification: II - mild/mod systemic disease that does not interfere with daily routines, Airway assessment: able to hyperextend neck, able to maintain airway, can open mouth without difficulty, Mallampati classification of tongue size: II - faucial pillars and soft palate can be visualized, but uvula is masked by the base of the tongue, Monitoring during procedure: transmission inspector, continuous pulse oximetry, nurse at bedside at all times, Medications employed: Etomidate, 20 mg(s), Versed, 4 mg(s), Post-procedure assessment: the patient is moderately sedated, Respiratory status: requires supplemental oxygen to maintain acceptable oxygen saturation, a reversal agent was not used, Etomidate and Versed sedation used for left wrist reduction and splinting. 05:34 Reduction: of the left wrist, using traction, manipulation, With moderate sedation, sp4 Immobilized with Sugar-tong left wrist and forearm splint, Ortho-Glass. Patient tolerated well. Post reduction film - reveals improved alignment. Left displaced radius fracture reduction accomplished with moderate sedation and sugar-tong splint was applied.. MDM: 04:12 Patient medically screened. sp4 05:31 Differential diagnosis: dislocation, open fracture, closed fracture, contusion, sp4 abrasion, tendonitis. Data reviewed: vital signs, nurses notes, lab test result(s), radiologic studies, plain films. ED course: EXAM: XR Left Forearm, 2 Views CLINICAL HISTORY: The patient is 77 years old and is Female; DEFORMITY TECHNIQUE: Two views of the left forearm. COMPARISON: No relevant prior studies available. FINDINGS: Bones/joints: Fractures of the distal radius ulna and scaphoid, see x-ray left wrist report. No acute fracture in the proximal radius or ulna. No elbow dislocation. Soft tissues: Soft tissue swelling distal forearm and wrist. IMPRESSION: Fractures of the distal radius ulna and scaphoid, see x-ray left wrist report.. ED course: EXAM: XR Left Hand Complete, 3 or More Views CLINICAL HISTORY: The patient is 77 years old and is Female; wrist fracture TECHNIQUE: Three views of the left hand. COMPARISON: No relevant prior studies available. FINDINGS: Bones/joints: Comminuted distracted distal radius fracture. Displaced ulnar styloid fracture. Comminuted scaphoid fracture, suspect chronic. Scapholunate joint space widening consistent with ligament tear. Severe degenerative changes in the basal joint. Small lucency in the proximal capitate consistent with high-grade chondromalacia. No dislocation. Soft tissues: Marked soft tissue swelling in the wrist and proximal forearm. No radiopaque foreign body. IMPRESSION: 1. Comminuted distracted distal radius fracture. Displaced ulnar styloid fracture. 2. Comminuted scaphoid fracture, suspect chronic. Scapholunate joint space widening consistent with ligament tear. Follow-up with CT/MRI if clinically warranted.. 05:36 ED course: EXAM: XR Left Wrist, 2 Views CLINICAL HISTORY: The patient is 77 years old sp4 and is Female; DEFORMITY TECHNIQUE: Two views of the left wrist. COMPARISON: No relevant prior studies available. FINDINGS: Bones/joints: Comminuted fracture, distal radius. Ulnar styloid fracture. Chronic scaphoid fracture with fragmentation. TFC calcification consistent with chondrocalcinosis. Severe degenerative changes in the basal joint. No dislocation. Soft tissues: Soft tissue swelling distal forearm and wrist. No soft tissue gas. No radiopaque foreign body. IMPRESSION: 1. Comminuted fracture, distal radius. Ulnar styloid fracture. 2. Old/chronic scaphoid fracture with fragmentation. Electronically signed by: Leah Hogan MD 07/31/2023 05:28 AM. 07/30 04:11 Order name: Hand Left 2 View XRAY sp4 07/30 04:11 Order name: Forearm Left XRAY sp4 07/30 05:10 Order name: XRAY Wrist LEFT 2 view rv 07/30 04:09 Order name: IV Saline Lock; Complete Time: 04:25 sp4 07/30 04:09 Order name: Labs collected and sent; Complete Time: 04:25 sp4 07/30 04:09 Order name: O2 Per Protocol; Complete Time: 04:25 sp4 07/30 04:09 Order name: O2 Sat Monitoring; Complete Time: 04:25 sp4 07/30 04:09 Order name: Moderate Sedation; Complete Time: 04:25 sp4 Administered Medications: 04:45 Drug: morphine IVP or IV 4 mg IVP once over 4 mins Route: IVP; Infused Over: 4 mins; rv Site: right hand; 07:06 Follow up: Response: No adverse reaction; Marked relief of symptoms rv 04:45 Drug: Ondansetron IVP 4 mg IVP once; over 2 minutes Route: IVP; Site: right hand; rv 07:06 Follow up: Response: No adverse reaction; Marked relief of symptoms rv 05:01 Drug: Etomidate IVP 20 mg IVP once {Note: administered by dr Tolentino.} Route: IVP; rv Site: right hand; 07:05 Follow up: Response: No adverse reaction; Marked relief of symptoms rv 05:08 Drug: Midazolam IVP or IV 4 mg IVP once Route: IVP; Site: right hand; rv 07:06 Follow up: Response: No adverse reaction; Marked relief of symptoms rv 07:05 Drug: Victor PO 10 mg-325 mg 1 tabs PO once Route: PO; rv 07:05 Drug: Ibuprofen PO 400 mg PO once Route: PO; rv 07:05 Drug: Methocarbamol PO 750 mg PO once Route: PO; rv 07:05 Drug: Ondansetron PO 4 mg PO once Route: PO; rv Disposition Summary: 07/31/23 06:42 Discharge Ordered Problem: new sp4 Symptoms: have improved sp4 Condition: Stable sp4 Diagnosis - Left distal radius fracture with displacement, left chronic scaphoid fracture, sp4 ulnar styloid fracture comminuted distal left radius fracture Followup: sp4 - With: Waqar Christensen MD - When: 7 - 10 days - Reason: Recheck today's complaints Discharge Instructions: - Discharge Summary Sheet sp4 - Closed Reduction for Wrist or Forearm, Care After sp4 Forms: - Patient Portal Instructions sp4 Prescriptions: - Ibuprofen 600 mg Oral Tablet - take 1 tablet ORAL route every 6 hours As needed take with food; 30 tablet; sp4 Refills: 0, Product Selection Permitted - Tramadol 50 mg Oral tablet - take 1 tablet ORAL route every 8 hours as needed; 30 tablet; Refills: 0, sp4 Product Selection Permitted - methocarbamol 750 mg Oral tablet - take 2 tablets ORAL route 4 times per day for 2 days; 30 tablet; Refills: 0, sp4 Product Selection Permitted Signatures: Dispatcher [employer] EDAnthony Sarah RN RN rv Calcote, Vanessa, RN RN vc1 Chavo Tolentino MD MD sp4 Corrections: (The following items were deleted from the chart) 08:20 04:09 BASIC METABOLIC PANEL+[id number].LAB.BRZ ordered. EDMS EDMS
--- NOTE | 2023-07-31 06:43 | ER ---
Nurse's Notes [facility] Name: Mechelle Sher Age: 77 yrs Sex: Female : 1945 Arrival Date: 07/31/2023 Time: 04:00 Bed DX3 Private MD: Diagnosis: Left distal radius fracture with displacement, left chronic scaphoid fracture, ulnar styloid fracture comminuted distal left radius fracture Presentation: 07/30 04:27 Chief complaint: Patient states: I was walking to my kitchen in the dark and walked vc1 into the door facing and fell into the [place] onto my left wrist. Coronavirus screen: Vaccine status: Patient reports receiving the 2nd dose of the covid vaccine. At this time, the client does not indicate any symptoms associated with coronavirus-19. Ebola Screen: Patient negative for fever greater than or equal to 101.5 degrees Fahrenheit, and additional compatible Ebola Virus Disease symptoms Patient denies exposure to infectious person. Patient denies travel to an Ebola-affected area in the 21 days before illness onset. No symptoms or risks identified at this time. Initial Sepsis Screen: Does the patient meet any 2 criteria? No. Patient's initial sepsis screen is negative. Does the patient have a suspected source of infection? No. Patient's initial sepsis screen is negative. Risk Assessment: Do you want to hurt yourself or someone else? Patient reports no desire to harm self or others. Onset of symptoms was July 31, 2023. 04:27 Method Of Arrival: Ambulatory vc1 04:27 Acuity: DARRIUS 2 vc1 04:36 Note Feel around 0100. vc1 Triage Assessment: 04:34 General: Appears uncomfortable, Behavior is cooperative, crying. Pain: Complains of vc1 pain in left wrist Pain does not radiate. Pain currently is 10 out of 10 on a pain scale. Quality of pain is described as sharp, throbbing, numb, Pain began suddenly, Is continuous, Alleviated by rest, Aggravated by repositioning, Noted to be crying, grimacing, guarding, resistant to movement, Also complains of no other associated symptoms. EENT: No deficits noted. No signs and/or symptoms were reported regarding the EENT system. Neuro: Level of Consciousness is awake, alert, obeys commands, Oriented to person, place, time, situation, Appropriate for age. Cardiovascular: No deficits noted. Respiratory: Airway is patent Respiratory effort is even, unlabored, Respiratory pattern is regular, symmetrical, Breath sounds are clear. GI: No deficits noted. No signs and/or symptoms were reported involving the gastrointestinal system. : No deficits noted. No signs and/or symptoms were reported regarding the genitourinary system. Derm: Bruising that is dark purple, on left wrist. Musculoskeletal: Bony deformity noted of left wrist. Injury Description: Deformity sustained to left wrist. Historical: - Allergies: 04:30 Iodine; vc1 04:30 Sulfa (Sulfonamide Antibiotics); vc1 - PMHx: 04:30 Anxiety; Hypertension; vc1 - PSHx: 04:30 back; bilateral knee; hysterectomy; left hand; vc1 - Immunization history:: Adult Immunizations up to date. - Social history:: Smoking status: Patient denies any tobacco usage or history of. - Family history:: not pertinent. Screenin:33 [facility] ED Fall Risk Assessment (Adult) History of falling in the last 3 months, vc1 including since admission Yes- single mechanical fall (1 pt) Confusion or Disorientation No (0 pts) Intoxicated or Sedated No (0 pts) Impaired Gait No (0 pts) Mobility Assist Device Used No (0 pt) Altered Elimination No (0 pt) Score/Fall Risk Level 0 - 2 = Low Risk Oriented to surroundings, Maintained a safe environment, Educated pt \T\ family on fall prevention, incl call for assistance when getting out of bed. Abuse screen: Denies threats or abuse. Nutritional screening: No deficits noted. Tuberculosis screening: No symptoms or risk factors identified. Assessment: 07:06 Reassessment: No changes from previously documented assessment. Patient and/or family rv updated on plan of care and expected duration. Pain level reassessed. Patient is alert, oriented x 3, equal unlabored respirations, skin warm/dry/pink. PT IS AAOX4. FULLY AWAKE. Respiratory: Airway is patent Respiratory effort is even, unlabored. 07:40 Reassessment: Patient appears in no apparent distress at this time. No changes from kc6 previously documented assessment. Patient and/or family updated on plan of care and expected duration. Pain level reassessed. Patient is alert, oriented x 3, equal unlabored respirations, skin warm/dry/pink. 08:28 Reassessment: Patient is alert, oriented x 3, equal unlabored respirations, skin aa5 warm/dry/pink. 08:55 Reassessment: Patient is alert, oriented x 3, equal unlabored respirations, skin aa5 warm/dry/pink. Vital Signs: 04:27 BP 162 / 84; Pulse 71; Resp 14; Pulse Ox 99% ; Weight 65.77 kg; Height 5 ft. 4 in. ; vc1 Pain 10/10; 08:25 BP 147 / 87; Pulse 68; Resp 16 S; Temp 97.8(TE); Pulse Ox 98% on R/A; aa5 04:27 Body Mass Index 24.89 (65.77 kg, 162.56 cm) vc1 04:27 Pain Scale: Adult vc1 ED Course: 04:05 Patient arrived in ED. gm2 04:09 Chavo Tolentino MD is Attending Physician. sp4 04:30 Hand Left 2 View XRAY In Process Unspecified. EDMS 04:30 Forearm Left XRAY In Process Unspecified. EDMS 04:30 Triage completed. vc1 04:33 Arm band placed on right wrist. vc1 04:36 Patient has correct armband on for positive identification. Placed in gown. Bed in low vc1 position. Side rails up X2. Pulse ox on. NIBP on. 04:40 Inserted saline lock: 20 gauge in right hand, using aseptic technique. Blood collected. rv 04:55 Assist provider with reduction of left wrist using manipulation, Set up for procedure. rv Performed by Chavo Tolentino MD Immobilized with OCL splint, Patient tolerated well. 05:19 XRAY Wrist LEFT 2 view In Process Unspecified. EDMS 06:41 Waqar Christensen MD is Referral Physician. sp4 07:00 Report received from SAVANAH Cintron. kc6 08:28 IV discontinued, intact, bleeding controlled, No redness/swelling at site. Pressure aa5 dressing applied. Administered Medications: 04:45 Drug: morphine IVP or IV 4 mg IVP once over 4 mins Route: IVP; Infused Over: 4 mins; rv Site: right hand; 07:06 Follow up: Response: No adverse reaction; Marked relief of symptoms rv 04:45 Drug: Ondansetron IVP 4 mg IVP once; over 2 minutes Route: IVP; Site: right hand; rv 07:06 Follow up: Response: No adverse reaction; Marked relief of symptoms rv 05:01 Drug: Etomidate IVP 20 mg IVP once {Note: administered by dr Tolentino.} Route: IVP; rv Site: right hand; 07:05 Follow up: Response: No adverse reaction; Marked relief of symptoms rv 05:08 Drug: Midazolam IVP or IV 4 mg IVP once Route: IVP; Site: right hand; rv 07:06 Follow up: Response: No adverse reaction; Marked relief of symptoms rv 07:05 Drug: [place] PO 10 mg-325 mg 1 tabs PO once Route: PO; rv 07:05 Drug: Ibuprofen PO 400 mg PO once Route: PO; rv 07:05 Drug: Methocarbamol PO 750 mg PO once Route: PO; rv 07:05 Drug: Ondansetron PO 4 mg PO once Route: PO; rv Medication: 04:34 VIS not applicable for this client. vc1 Outcome: 06:42 Discharge ordered by MD. [email or web address] 08:28 Discharged to home via wheelchair, Awaiting ride home in [facility] aa5 08:28 Condition: stable 08:28 Discharge instructions given to patient, Instructed on discharge instructions, follow up and referral plans. Demonstrated understanding of instructions, follow-up care, 08:55 Patient left the ED. aa5 08:55 Discharged to home via wheelchair, with family, aa5 08:55 Condition: stable Signatures: Dispatcher [employer] EDMS Cheli Tovar RN RN aa5 Anthony House RN RN rv Calcote, Vanessa, RN RN vc1 Sabina Ritter RN RN kc6 Chavo Tolentino MD MD sp4 Apoorva Chavira 2 Corrections: (The following items were deleted from the chart) 09:10 08:29 Patient left the ED. aa5 aa5
[2023-07-31 08:45] VITALS: BP 162/84; O2SAT 99
--- NOTE | 2023-07-31 10:09 | RAD REPORT ---
EXAM DESCRIPTION: RAD - Wrist Left 2 View - 07/31/2023 5:17 am CLINICAL HISTORY: The patient is 77 years old and is Female; DEFORMITY TECHNIQUE: Two views of the left wrist. COMPARISON: No relevant prior studies available. FINDINGS: Bones/joints: Comminuted fracture, distal radius. Ulnar styloid fracture. Chronic scaphoid fracture with fragmentation. TFC calcification consistent with chondrocalcinosis. Severe degenerative changes in the basal joint. No dislocation. Soft tissues: Soft tissue swelling distal forearm and wrist. No soft tissue gas. No radiopaque foreign body. IMPRESSION: 1. Comminuted fracture, distal radius. Ulnar styloid fracture. 2. Old/chronic scaphoid fracture with fragmentation. Electronically signed by: Leah Hogan MD 07/31/2023 05:28 AM EDUCATION REVIEWER Due to temporary technical issues with the PACS/Fluency reporting system, reports are being signed by the in house radiologists without review as a courtesy to insure prompt reporting. The interpreting radiologist is fully responsible for the content of the report.
--- NOTE | 2023-07-31 10:22 | RAD REPORT ---
EXAM DESCRIPTION: RAD - Forearm Left - 07/31/2023 4:28 am CLINICAL HISTORY: The patient is 77 years old and is Female; DEFORMITY TECHNIQUE: Two views of the left forearm. COMPARISON: No relevant prior studies available. FINDINGS: Bones/joints: Fractures of the distal radius ulna and scaphoid, see x-ray left wrist rep ort. No acute fracture in the proximal radius or ulna. No elbow dislocation. Soft tissues: Soft tissue swelling distal forearm and wrist. IMPRESSION: Fractures of the distal radius ulna and scaphoid, see x-ray left wrist report. Electronically signed by: Leah Hogan MD 07/31/2023 04:58 AM STEAM TURBINE OPERATOR Due to temporary technical issues with the PACS/Fluency reporting system, reports are being signed by the in house radiologists without review as a courtesy to insure prompt reporting. The interpreting radiologist is fully responsible for the content of the report.
--- NOTE | 2023-07-31 13:06 | RAD REPORT ---
EXAM DESCRIPTION: RAD - Hand Left 2 View - 07/31/2023 4:28 am CLINICAL HISTORY: The patient is 77 years old and is Female; wrist fracture TECHNIQUE: Three views of the left hand. COMPARISON: No relevant prior studies available. FINDINGS: Bones/joints: Comminuted distracted distal radius fracture. Displaced ulnar styloid frac ture. Comminuted scaphoid fracture, suspect chronic. Scapholunate joint space widening consistent w ith ligament tear. Severe degenerative changes in the basal joint. Small lucency in the proximal capitate consistent with high-grade chondromalacia. No dislocation. Soft tissues: Marked soft tissue swelling in the wrist and proximal forearm. No radiopaque foreign body. IMPRESSION: 1. Comminuted distracted distal radius fracture. Displaced ulnar styloid fracture. 2. Comminuted scaphoid fracture, suspect chronic. Scapholunate joint space widening consistent with ligament tear. Follow-up with CT/MRI if clinically warranted. Electronically signed by: Leah Hogan MD 07/31/2023 04:57 AM RETURN TO VENDOR Due to temporary technical issues with the PACS/Fluency reporting system, reports are being signed by the in house radiologists without review as a courtesy to insure prompt reporting. The interpreting radiologist is fully responsible for the content of the report.
== END ==
LOC: ER 04:00
DX: S52.502A Unspecified fracture of the lower end of left radius, initial encounter for closed fracture (principal); S62.002A Unspecified fracture of navicular [scaphoid] bone of left wrist, initial encounter for closed fracture; S52.612A Displaced fracture of left ulna styloid process, initial encounter for closed fracture; W18.30XA Fall on same level, unspecified, initial encounter; Z88.2 Allergy status to sulfonamides; Z91.048 Other nonmedicinal substance allergy status
CPT/HCPCS: 73120; 73090; 73100; 96375; 96374; 99285; 25605; Q0162; J2250; J2405

== ENCOUNTER 2023-08-12 06:37 | Day surgery (SDC) | payer OTHER ==
[2023-08-12 07:23] LABS: Absolute Basophils 0.1 K/uL (0-0.5); Absolute Eosinophils 0.2 K/uL (0-0.5); Absolute Lymphocytes (CBC) 1.7 K/uL (0.7-4.9); Absolute Monocytes 0.5 K/uL (0.1-1.3); Absolute Neutrophil 3.5 K/uL (1.8-8.0); Eosinophils % 3.8 % (0-4.4); Hematocrit 34.4 % (36.0-45.0); Hemoglobin 12.1 g/dL (12.0-15.0); Lymphocytes % 28.3 % (15.3-44.8); MCH 35.5 pg (27.0-35.0); MCHC 35.3 g/dL (32.0-36.0); MCV 100.4 fL (80-100); MPV 7.4 fL (7.6-11.3); Monocytes % 8.4 % (3.3-12.3); Neutrophils % 58.5 % (41.7-73.7); Platelets 386 thou/uL (152-406); RBC Red Blood Cell Count 3.42 M/uL (3.86-4.86); Red Cell Distribution Width 13.7 % (12.1-15.2)
[2023-08-12 07:27] LABS: Anion Gap 6.8 mEq/L (5.0-15.0); Potassium 3.8 mEq/L (3.5-5.1)
[2023-08-12] MEDS: Ringers Lactate 1,000 ML IV ONE (07:40)
[2023-08-12] MEDS ORDERED: dexAMETHasone 10 MG/ML VIAL ONE (07:45)
[2023-08-12] MEDS ORDERED: FENTANYL CITR 100 MCG/2 ML ONE (07:46)
[2023-08-12] MEDS ORDERED: EPINEPHRINE 1 MG/ML VIAL ONE (07:46)
[2023-08-12] MEDS ORDERED: MIDAZOLAM HCL 2 MG/2 ML INJ ONE (07:47)
[2023-08-12] MEDS ORDERED: propofoL 200 MG/20 ML VIAL IV ONE (08:22)
[2023-08-12] MEDS ORDERED: LIDOCAINE 1% MPF 2 ML AMPULE ONE (08:22)
[2023-08-12] MEDS: CEFAZOLIN SODIUM 1 GM/VIAL ONE (09:15)
[2023-08-12] MEDS ORDERED: LIDOCAINE 2% MPF 5 ML VIAL ONE (09:18)
--- NOTE | 2023-08-12 11:23 | OP ---
Date of Procedure: 08/12/2023 Surgeon: Waqar Christensen MD Preoperative Diagnosis: Left displaced intra-articular distal radius fracture. Postoperative Diagnosis: Left displaced intra-articular distal radius fracture. Procedure: Left distal radius open reduction internal fixation using the Acumed volar plating set. Estimated Blood Loss: Less than 10 mL. Complications: There were no complications. Specimens: No pathology specimens sent. Indications For Operation: Ms. Sher is a 77-year-old female came to see me in my office after sust aining a fracture of her distal radius. On review of the x-rays, it appeared that she had, had some correction while being placed into a splint and perhaps an acceptable closed reduction. 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 Discussed with her at that time risks, benefits, and alternatives of tr eating it and felt that given her age group that she had an acceptable closed reduction and we would try closed methods and she was placed into a short-arm cast. However, quick followup was planned as the fracture pattern appeared to be very unstable and could most likely lead to a poor position with close management. When I saw her on Friday, x-rays were taken in the cast, which demonstrates she di d have a highly displaced distal radius fracture and lost the reduction she had, had. Discussed with her the risks, benefits, and alternatives of different methods of treating this, that closed means a re probably not going to be able to be sufficient for a wrist without significant deformity. She sta eva she understands things as presented and we discussed the possibility of pins versus plating, plat ing being preferred and she agrees to proceed. She knows she will not do anything with the scaphoid. She also relates that she has had a previous carpal tunnel release and she does have some tingling of all of her fingers, but this includes both the median and ulnar digits and does have good sensatio n just citing some tingling and we will not pursue open carpal tunnel release. She says this is her choice and we understand this. Description Of Procedure: The patient was taken to the operating room, placed in the supine position . A block had previously been performed in the holding area. General anesthesia was easily obtained by the Anesthesia staff. Following this, a well-padded tourniquet was placed on superior left arm. Left upper extremity was then prepped and draped in the usual sterile fashion for procedure. Follow ing this, the arm was then elevated, but not exsanguinated. Tourniquet was raised. The C-arm was br ought in and appeared that the fragment pieces, although I am sure, severely osteoporotic, should be able to accept the volar plate and a standard volar approach of Shad was then taken down carefully t hrough the skin only, meticulous hemostasis being maintained using bipolar electrocautery. This lead s to the flexor carpi radialis tendon, which was then reflected radialward to protect the radial yasmani ry. The underlying sheath was then opened and the tendon and muscle belly of the flexor pollicis annalee kira was identified, protected and moved ulnarward to protect the median nerve. After this, the prona tor quadratus was encountered and divided at its midsubstance and gently moved off the bone. Her bon e was found to be extremely soft. However, a closed reduction technique was used as the plate is brittaney lied with 1 distal screw, which was unlocked, which brings the plate down. Following this, the plate was again adjusted and 1 toggle screw was placed proximally, which allows for much better reduction. After this, the remainder of the distal screws were placed with smooth locked pegs, the screw which had really been placed was replaced. This was checked under biplanar C-arm radiography and does not appear to enter the joint and appeared to be appropriate length. After this, 2 more proximal screws were placed and the initial screw which was longer than required was then replaced with a shorter sc rew. After this, all instruments and guides were removed and final x-rays reveal much better positio n of the radius with pegs appearing to be holding well. The wound was gently irrigated and skin was closed using nylon sutures. The patient was placed in a well-padded sterile dressing as well as a volar splint and awakened and taken to the recovery room. TRINA Voice ID: [id number] Report ID: [id number]
[2023-08-12 13:55] VITALS: BP 142/67; TEMP 97.2; O2SAT 96
--- NOTE | 2023-08-12 15:25 | RAD REPORT ---
EXAM DESCRIPTION: RAD - Fluoroscopy <1 Hour - 08/12/2023 3:19 pm CLINICAL HISTORY: ORIF DISTAL RADIUS LEFT COMPARISON: No comparisons FINDINGS: Fluoroscopy time: 1.8 minutes
== END 2023-08-12 13:29 | disposition home or self-care (01) ==
LOC: OR 06:37
PROVIDERS: ATTEND Orthopaedic Surgery
PROC: 0PSJ04Z Reposition Left Radius with Internal Fixation Device, Open Approach (ICD-10-PCS; principal; 2023-08-12 09:45)
DX: S52.572A Other intraarticular fracture of lower end of left radius, initial encounter for closed fracture (principal); I10 Essential (primary) hypertension; F32.A Depression, unspecified; F41.9 Anxiety disorder, unspecified; G47.33 Obstructive sleep apnea (adult) (pediatric); K58.9 Irritable bowel syndrome, unspecified
CPT/HCPCS: 85025; 80048; 36415; 25608; C1713 ×3; J2704; J2001; J3010; J1100; J0171; J7120; J0690; 76000; J2250